=== PATIENT | male | born 1935 | race Caucasian/White ===

== ENCOUNTER 2020-09-12 08:04 | Outpatient (REF) | payer MEDICARE, OTHER, SELFPAY ==
[2020-09-12 10:03] LABS: MANUAL DIFF FLAG NO
[2020-09-12 10:06] LABS: Basophils Absolute Auto 0.1 X10*3/uL (0.0-0.2); Basophils Percent Auto 0.9 % (0-2); Eosinophils Absolute Auto 0.4 X10*3/uL (0.0-0.4); Eosinophils Percent Auto 6.7 % (0-4); Hematocrit 32.6 % (42-52); Imm Gran Abs Auto 0.02 X10*3/uL (0.00-0.03); Imm Gran Pct Auto 0.4 % (0.0-0.4); Lymphocytes Absolute Auto 1.2 X10*3/uL (1.2-4.9); Lymphocytes Percent Auto 21.3 % (20-40); Mean Corpuscular HGB Conc 33.7 g/dl (31.0-36.0); Mean Corpuscular Hemoglobin 35.1 pg (27.0-33.0); Mean Corpuscular Volume 104.2 fL (80-98); Monocytes Absolute Auto 0.6 X10*3/uL (0.1-1.2); Monocytes Percent Auto 11.5 % (2-11); Neutrophils Absolute Auto 3.3 X10*3/uL (2.0-8.3); Neutrophils Percent Auto 59.2 % (45-73); Platelet Count 207 X10*3/uL (160-400); Red Blood Count 3.13 X10*6/uL (4.60-5.80); Red Cell Distribution Width 14.6 % (11.0-16.0); White Blood Count 5.6 X10*3/uL (4.8-10.8)
[2020-09-12 10:39] LABS: Alanine Aminotransferase 13 U/L (0-40); Albumin Level 4.2 g/dL (3.5-5.0); Alkaline Phosphatase 45 U/L (39-117); Anion Gap 11 (12-20); Aspartate Amino Transferase 14 U/L (5-37); Bilirubin Total 0.7 mg/dL (0.0-1.0); Blood Urea Nitrogen 15 mg/dL (9-16); Carbon Dioxide 28 mmol/L (22-29); Chloride 105 mmol/L (96-108); Cholesterol 123 mg/dL; Estimated Glomerular Filt Rate > 60; Glucose Fasting 139 mg/dL (60-99); HDL Cholesterol 46 mg/dL; LDL Cholesterol Calculated 67 mg/dl; Potassium 4.7 mmol/l (3.3-5.1); Sodium 139 mmol/L (135-145); Total Protein 7.2 g/dL (6.5-8.0); Triglycerides 51 mg/dL
[2020-09-12 11:01] LABS: TSH reflex Free T4 0.82 mIU/mL (0.32-4.0)
[2020-09-12 11:14] LABS: Folate > 20.0 ng/mL (> or = 4.0); Vitamin B12 1549 pg/mL (200-900)
[2020-09-12 14:05] LABS: Glucose Urine UA NEG (NEG); Leukocyte Esterase Urine 3+ (NEG); Nitrite Urine POS (NEG); Specific Gravity - Urine >= 1.030 (1.005-1.025); Urine Blood TRACE (NEG); Urine Ketones NEG (NEG); Urine Protein NEG (NEG-TRACE)
[2020-09-12 14:06] LABS: Appearance Urine CLOUDY; Color Urine YELLOW
[2020-09-12 14:12] LABS: Creatinine Urine 180.45 mg/dL; Microalbum/Creatinine Ratio Ur 29.3 ug/mg cr
[2020-09-12 14:17] LABS: WBC Urine 50-75 /HPF (0-4)
[2020-09-12 14:18] LABS: Bacteria Urine 3+ /LPF; Squamous Epithelial Cell Urine 2+ /LPF
[2020-09-13 10:28] LABS: Erythropoietin (EPO) 20.1 mIU/mL (2.6-18.5)
== END 2020-09-12 08:05 | disposition home or self-care (01) ==
LOC: HO.10HDL 08:04
PROVIDERS: Visit Provider Internal Medicine
DX: E11.9 Type 2 diabetes mellitus without complications (principal); I10 Essential (primary) hypertension; E78.00 Pure hypercholesterolemia, unspecified; G62.9 Polyneuropathy, unspecified; K21.9 Gastro-esophageal reflux disease without esophagitis; E55.9 Vitamin D deficiency, unspecified; I48.3 Typical atrial flutter
CPT/HCPCS: 36415; 80053; 80061; 81001; 82043; 82306; 82607; 82668; 82746; 84443; 85025; 87086; 87088; 87186

== ENCOUNTER → 2020-09-29 13:04 | Outpatient (REF) | payer MEDICARE, OTHER, SELFPAY ==
--- NOTE | 2020-09-29 13:00 | CA_ITS ---
Transthoracic Echocardiogram Patient (Last, First, Middle): Contreras Chapman G Gender: Male Date of : 1935 Age: 85 Procedure Date: 09/29/2020 Procedure Type: Transthoracic Echocardiogram Location: OP Height: 177.8 cm Weight: 74.84 kg BSA: 1.92 m2 Heart Rate: bpm BP: 128 / 61 mmHg Mineralogy Professor: JEAN MARIE Referring MD: Mauricio Mace MD Symptoms: TYPPICAL ATRIAL FLUTTER I48.3 Study Quality: Good Conclusions: - The left ventricular systolic function is normal. The visually estimated ejection fraction is between 65-70%. - No obvious valvular pathology seen on this study. Findings Left Ventricle Normal left ventricular cavity size. There is moderately increased left ventricular wall thickness. The left ventricular systolic function is normal. The visually estimated ejection fraction is between 65-70%. There is no evidence of regional wall motion abnormalities. E/E prime ratio is between 8 and 15 consistent with indeterminate filling pressures. Evidence suggests grade I (mild) diastolic dysfunction. Right Ventricle Normal right ventricular cavity size and systolic function. Atria Mild biatrial enlargement. Aortic Valve There is a normal trileaflet aortic valve. There is mild calcification of the aortic valve. There is no aortic valve stenosis. There is trace (trivial) aortic valve regurgitation. Mitral Valve The mitral valve appears normal. There is trace mitral valve regurgitation. There is no mitral valve stenosis. Pulmonic Valve The pulmonic valve was not well visualized. Tricuspid Valve Normal tricuspid valve structure. There is trace tricuspid valve regurgitation. The pulmonary artery systolic pressure is normal. Great Vessels Top normal ascending aortic size at 3.7 cm. Venous The inferior vena cava was not well visualized. Pericardium/Pleural There is no evidence of pericardial effusion. Prior Study Comparison No significant change compared to prior study dated: 09/09/2019. Recommendations, Care & Conclusions No obvious valvular pathology seen on this study. Measurements 2D Linear Measurements IVSd: 1.37 0.6-0.9/0.6-1.0 cm LVIDd: 5.22 3.9-5.3/4.2-5.9 cm LVIDd Index: 2.72 2.4-3.2/2.2-3.1 cm/m2 LVIDs: 4.00 2.0-3.6 cm LVPWd: 1.15 0.7-1.1 cm Ao Root: 3.40 2.1-3.5 cm LA Diam: 3.90 2.7-3.8/3.0-4.0 cm LAIDs Index: 2.03 1.5-2.3 cm/m2 LV Mass: 334.31 67-162/88-224 g LV Mass Index: 174.12 43-95/49-115 g/m2 LVOT Diam: 2.30 3.0+(-)1.3 cm 2D Systolic Function EF 4C: 77.50 >55% EF 2C: 66.60 >55% EF BiP: 72.40 >55% Mitral Valve MV Pk E: 0.77 MV PK A: 0.90 MV Decel Time: 204.00 E/A: 0.80 E'Lateral: 8.16 E'Medial: 7.40 E/E' Med: 10.40 E/E' Lat: 9.40 PHT: 60.00 MVA PHT: 3.67 Decel Bowie: 3.75 Aortic Valve AoV Pk Dejon: 1.29 AoV Pk Grad: 7.00 LVOT LVOT Pk Dejon: 0.78 LVOT Mn Dejon: 0.55 LVOT VTI: 0.20 LVOT Pk Grad: 2.00 LVOT Mn Grad: 1.00 LVOT Diam: 2.30 LVOT Area: 4.15 Diastolic Function MV Pk E: 0.77 MV Pk A: 0.90 E/A: 0.80 E'Medial: 7.40 E/E' Med: 10.40 E' Laterial: 8.16 E/E' Lat: 9.40 Tricuspid Valve TR Pk Dejon: 2.54 TR Pk Grad: 26.00 RA Press: 3.00 RVSP: 29.00 Great Vessels Aorta Ao Root-2D: 3.40 2.0-3.7 cm Ao Asc: 3.70 2.1-3.4 cm Updated in Other Vendor System with Status of Final Mauricio Mace MD electronically signed on 10/01/2020 12:40:10 PM with status of Final
--- NOTE | 2020-09-29 14:00 | ECG_ITS ---
Hook-up date: 2020-09-29 14:15:00 Duration: 25:27:00 Test Indications: TYPICAL ATRIAL FLUTTER Medications: 79536 QRS complexes 263 Ventricular ectopics which represent <1 % of total QRS comp. 1280 Supraventricular ectopics which represent 1 % of total QRS comp. * Paced QRS complexs which represent % of total QRS comp. VENTRICULAR ECTOPY 257 Isolated 6 Bigeminal Cycles 3 Couplets 0 Runs 0 Beats in Runs * Beats LONGEST at * BPM at :: -- * Beats FASTEST at * BPM at :: -- SUPRAVENTRICULAR ECTOPY 1189 Isolated 18 Couplets 9 Runs 55 Beats in Runs 19 Beats LONGEST at 111 BPM at 17:29:35 2020-09-29 7 Beats FASTEST at 123 BPM at 06:17:45 2020-09-30 HEART RATES 63 MIN at 03:44:16 2020-09-30 72 AVG 106 MAX at 11:30:17 2020-09-30 LONGEST RR 1.5680 secs at 05:19:55 2020-09-30 S-T LEVELS Channel 1 - 128 mm at 14:15:00 2020-09-29 - 128 mm at 14:15:00 2020-09-29 Channel 2 - 128 mm at 14:15:00 2020-09-29 - 128 mm at 14:15:00 2020-09-29 Channel 3 - 128 mm at 03:33:41 -- - 128 mm at 03:33:41 Basic rhythm Normal sinus rhythm No long pause or profound bradycardia No sustained Atrial flutter Frequent Premature atrial complexes Short bursts of SVE. s/o PAT, longest lasting 19 beats at 111 bpm Patient did not report any symptoms in the diary Referred By: Mauricio Mace Overread By: DONALD MCCLAIN MD
== END ==
LOC: HO.CARD 13:04
PROVIDERS: PCP Internal Medicine; Visit Provider Internal Medicine
DX: I48.3 Typical atrial flutter (principal)
CPT/HCPCS: 93225; 93226; 93306

== ENCOUNTER → 2020-10-06 12:19 | Outpatient (BNVA) | payer MEDICARE, OTHER, SELFPAY | PROVIDERS: PCP Internal Medicine; Visit Provider Internal Medicine | DX: I48.92 Unspecified atrial flutter (principal); I10 Essential (primary) hypertension; K92.2 Gastrointestinal hemorrhage, unspecified | CPT/HCPCS: 93005; 99212 ==

== ENCOUNTER 2020-10-12 13:23 | Outpatient (REF) | payer MEDICARE, OTHER, SELFPAY ==
--- NOTE | ~2020-10-12 | XR_ITS ---
EXAMINATION: XR CHEST CLINICAL INFORMATION: Cough COMPARISON: August 12, 2018 TECHNIQUE: 2 views of the chest were obtained. FINDINGS: No significant abnormality is noted involving the heart, lungs, mediastinum, bony thorax or soft tissues. Multilevel degenerative spurring in the thoracic spine is seen. XR/XR chest 2V IMPRESSION: No acute disease.
[2020-10-12 14:27] LABS: Glucose Urine UA NEG (NEG); Leukocyte Esterase Urine NEG (NEG); Nitrite Urine NEG (NEG); Specific Gravity - Urine 1.015 (1.005-1.025); Urine Blood NEG (NEG); Urine Ketones NEG (NEG); Urine Protein NEG (NEG-TRACE)
[2020-10-12 14:29] LABS: Appearance Urine CLEAR; Color Urine YELLOW
== END 2020-10-12 13:24 | disposition home or self-care (01) ==
LOC: HO.LAB 13:23
PROVIDERS: PCP Internal Medicine; Visit Provider Internal Medicine
DX: R05 Cough (principal); N12 Tubulo-interstitial nephritis, not specified as acute or chronic
CPT/HCPCS: 71046; 81003

== ENCOUNTER 2020-11-07 08:51 | Emergency (ER) | payer OTHER, MEDICARE, SELFPAY ==
[2020-11-07 08:52] VITALS: BP 200/79; PULSE 75; RESP 18; TEMP 36.5; O2SAT 99; BMI 25.1
--- NOTE | 2020-11-07 09:19 | ED.WOUNDLAC ---
HPI - Wound/Laceration General Chief Complaint: Wound/Laceration Stated Complaint: left foot toe infection Time Seen by Provider: 11/07/20 08:56 Source: patient Mode of arrival: ambulatory Limitations: no limitations History of Present Illness HPI narrative: 85-year-old male presented with bite force to infection, patient was seen and evaluated by his access database developer at the [place], patient was started on doxycycline antibiotic, because of small opening in the wound at the base of left 4th toe access database developer was concern of bleeding. And sent the patient to the emergency department for further evaluation. Patient found to be hypertensive in the emergency department but patient relates the high blood pressure to his presence in the emergency department when he get slightly anxious. And wound on his left foot is dry and clean and intact. Related Data Home Medications Medication Instructions Recorded Confirmed simvastatin 20 mg tablet 20 mg PO BEDTIME 09/20/20 10/17/20 sitagliptin 100 mg tablet 100 mg PO DAILY 09/20/20 10/17/20 lorazepam 1 mg tablet 1 mg PO TID 10/17/20 10/17/20 Previous Rx's Medication Instructions Recorded gabapentin 400 mg capsule 400 mg PO BID #180 cap 08/23/20 valsartan 160 mg tablet 160 mg PO DAILY #90 tab 09/20/20 metoprolol succinate 50 mg 50 mg PO DAILY #90 tab 09/21/20 tablet,extended release 24 hr zolpidem 10 mg tablet 10 mg PO BEDTIME PRN 90 Days #90 09/26/20 tab albuterol sulfate 90 mcg/actuation 2 puff INHALATION QID PRN 30 Days 10/17/20 aerosol inhaler #8.5 g amlodipine 10 mg tablet 10 mg PO DAILY #90 tab 10/17/20 azithromycin 250 mg tablet See Rx Instructions PO .COMPLEX #6 10/17/20 tab omeprazole 20 mg capsule,delayed 20 mg PO BID #180 cap 10/28/20 release doxycycline monohydrate 100 mg 100 mg PO BID 7 Days #14 cap 11/03/20 capsule Allergies Allergy/AdvReac Type Severity Reaction Status Date / Time Penicillins Allergy Intermediate RASH/HIVES Verified 10/17/20 10:30 Sulfa (Sulfonamide Allergy Intermediate RASH/HIVES, Verified 10/17/20 10:30 Antibiotics) hives Review of Systems Review of Systems: All other systems are reviewed and are negative Constitutional: Reports as per HPI and Reports no additional constitutional complaints Eyes: Reports as per HPI and Reports no additional eye complaints Reports system reviewed and no additional complaints, except as documented Cardiovascular: Reports as per HPI and Reports no additional cardiovascular complaints Respiratory: Reports as per HPI and Reports no additional respiratory complaints Gastrointestinal: Reports as per HPI and Reports no additional gastrointestinal complaints Genitourinary: Reports no additional female genitourinary complaints Musculoskeletal: Reports no additional musculoskeletal complaints Skin/Breast: Reports system reviewed and no additional complaints, except as docu Psychiatric: Reports no additional psychiatric complaints Endocrine: Reports no additional endocrine complaints Hematologic/Lymphatic: Reports no additional hematologic/lymphatic complaints Allergic/Immunologic: Reports no additional allergic/immunologic complaints Reports system reviewed and no additional complaints, except as documented and Reports Abnormal speech present [facility] Past Medical History Medical History Anemia Arthralgia Atrial flutter Benign essential hypertension Diabetes mellitus Essential hypertension Gastrointestinal hemorrhage GERD without esophagitis Insomnia Neuropathy Paroxysmal atrial flutter Psoriasis Pure hypercholesterolemia Pyelonephritis Vitamin D deficiency Surgical History History of inguinal hernia repair History of left hip replacement S/P ablation of atrial flutter Family History Family History Father Pneumonia Mother Myocardial infarction Son No problems noted. Daughter No problems noted. Social History Social History Alcohol intake: never Smoking Status: Never smoker Use of substances other than those prescribed or required for medical reasons: No Advance Directives: Yes Advance Directives on File: Yes Advance Directives Date on File: 08/26/00 Physical Exam Vital Signs: Vital Signs: Last Vital Signs Temp 97.7 F 11/07/20 08:52 Pulse 66 11/07/20 09:54 Resp 16 11/07/20 09:54 BP 146/85 H 11/07/20 09:54 Pulse Ox 95 11/07/20 09:54 Body Mass Index 25.1 Vital signs have been reviewed as appeared to be correct. Blood pressure in the high range will repeat. Heart rate normal. Respiration rate normal. Temperature normal. Oxygen saturation normal. Appearance: Alert. Oriented X3. No acute distress. Head: Normal external exam. Normocephalic. Atraumatic. No Quinones signs noted. No raccoon eyes noted Eyes: PERRLA. EOMI. Conjunctiva and sclera normal. Eyelids normal. ENT: TM's Normal. Pharynx normal. Uvula midline. Moist mucous membranes. No trismus noted. No drooling noted. No muffled voice noted. Neck: Normal inspection. Neck supple. FROM. No adenopathy. Thyroid Normal. No meningeal signs. No neck mass noted. CVS: Normal heart rate and rhythm. Heart sound normal. No murmurs noted. Pulses normal throughout. Respiratory: No respiratory distress. Painless inspiration. Breath sounds normal. No wheezes/rales/rhonchi noted. Chest nontender. No accessory muscle usage noted or decreased air movement noted. Abdomen: Soft and nontender. Bowel sounds normal in all 4 quadrants. No distention noted. No organomegaly noted. No visible injury noted. Back: No CVA tenderness. Full range of motion noted. Skin: Skin warm and dry. Normal skin color. Normal skin turgor. No rashes/lesions/lacerations noted. Extremities: Left 4th toe appeared dry, clean, intact, there is a small open wound at the base of left fourth toe palmar side, no active bleeding, no obvious sign of infection. Neuro: Oriented X 3. No motor deficit. No sensory deficit. Reflexes normal. Course Course Course Narrative: Left 4th infection. Continue with doxycycline antibiotic. And follow-up with wound clinic. Blood pressure under better venue put patient was instructed to follow up with his PCP and closely monitor his blood pressure. Blood pressure improved while in the emergency department. Discharge Plan Discharge Clinical Impression: Essential hypertension, Infection of toe Patient Disposition: Home, Self-Care Instructions: Hypertension (ED) Prescriptions: No Action gabapentin 400 mg capsule 400 mg PO BID Qty: 180 RF: 1 valsartan 160 mg tablet 160 mg PO DAILY Qty: 90 RF: 3 metoprolol succinate 50 mg tablet extended release 24 hr 50 mg PO DAILY Qty: 90 RF: 3 amlodipine 10 mg tablet 10 mg PO DAILY Qty: 90 RF: 1 omeprazole 20 mg capsule,delayed release(DR/EC) 20 mg PO BID Qty: 180 RF: 1 doxycycline monohydrate 100 mg capsule 100 mg PO BID 7 Days Qty: 14 RF: 0 lorazepam 1 mg tablet 1 mg PO TID RF: 0 azithromycin 250 mg tablet See Rx Instructions PO .COMPLEX Qty: 6 RF: 0 albuterol sulfate 90 mcg/actuation HFA aerosol inhaler 2 puff inhalation QID PRN (Reason: shortness of breath or wheezing) 30 Days Qty: 8.5 RF: 1 simvastatin 20 mg tablet 20 mg PO BEDTIME RF: 0 Januvia 100 mg tablet 100 mg PO DAILY RF: 0 zolpidem 10 mg tablet 10 mg PO BEDTIME PRN (Reason: insomnia) 90 Days Qty: 90 RF: 1 Referrals: Srikanth Wilder MD [Physician] - 2 days
[2020-11-07 09:54] VITALS: BP 146/85; PULSE 66; RESP 16; O2SAT 95
== END 2020-11-07 10:42 | disposition home or self-care (01) ==
PROVIDERS: Emergency Provider Emergency Medicine; PCP Internal Medicine
DX: L08.9 Local infection of the skin and subcutaneous tissue, unspecified (principal); I10 Essential (primary) hypertension; I48.92 Unspecified atrial flutter
CPT/HCPCS: 99282; 99284

== ENCOUNTER 2020-11-10 13:01 | Outpatient (RCR) | payer OTHER, MEDICARE, SELFPAY | END 2020-11-22 13:54 | disposition home or self-care (01) | LOC: HO.WCC 13:01 | PROVIDERS: Visit Provider Surgery | DX: E11.628 Type 2 diabetes mellitus with other skin complications (principal); S90.425A Blister (nonthermal), left lesser toe(s), initial encounter; Z87.891 Personal history of nicotine dependence | CPT/HCPCS: 17250; 99212; 99213 ==

== ENCOUNTER 2020-12-04 13:00 | Emergency (ER) | payer OTHER, MEDICARE, SELFPAY ==
--- NOTE | ~2020-12-04 | US_ITS ---
EXAMINATION: US VENOUS ULTRASOUND WITH DOPPLER LOWER EXTREMITY, LEFT CLINICAL INFORMATION: Pain, swelling COMPARISON: None TECHNIQUE: Ultrasound of the deep veins is performed from the hip to the calf with compression sonography and color and pulse Doppler assessment. Spectral analysis with color-flow imaging is performed. FINDINGS: There is normal venous compression and respiratory variation and augmented flow. The visualized common femoral vein, superficial femoral vein, profunda femoral vein, popliteal vein, and the trifurcation region shows no evidence of deep venous thrombosis. There is no significant popliteal fossa cyst. There is subcutaneous soft tissue edema in the calf. If the patient's symptoms persist, followup ultrasound in 5 days 7 days might be of value to exclude proximal propagation from a non-visualized calf vein. US/US venous duplex LE IMPRESSION: No DVT demonstrated in the left lower extremity.
--- NOTE | ~2020-12-04 | XR_ITS ---
EXAMINATION: XR FOOT, LEFT CLINICAL INFORMATION: Status post swelling. Pain. COMPARISON: 12/17/2012 TECHNIQUE: AP, lateral, and oblique views of the left foot. FINDINGS: The fifth metatarsal fracture has healed with stable medial displacement of the distal bone. There is mild irregularity to the base of the fourth and fifth proximal phalanges which may reflect prior trauma. No acute fracture or dislocation is seen. Moderate first MTP joint space narrowing is seen. Soft tissue swelling is seen proximally and vascular calcification is identified. XR/XR foot LT 2V IMPRESSION: Soft tissue swelling and vascular calcifications. Evidence of prior trauma to the left foot with a prior healed fifth metatarsal fracture. No acute osseous abnormality is seen.
[2020-12-04 13:03] VITALS: BP 143/63; PULSE 88; RESP 18; TEMP 37.1; O2SAT 96; BMI 25.5
--- NOTE | 2020-12-04 15:11 | PC.NURSE ---
ambulatory slow/steady gait, +swelling left foot/ankle no redness noted, +pp
[2020-12-04 16:52] VITALS: BP 138/68; PULSE 72; RESP 14; TEMP 36.3; O2SAT 97
--- NOTE | 2020-12-04 17:48 | ED.LOWEXIN ---
HPI - Extremity Injury (Lower) General Chief Complaint: Extremity Injury, Lower Stated Complaint: foot infection Time Seen by Provider: 12/04/20 15:33 Source: patient Mode of arrival: ambulatory Limitations: no limitations History of Present Illness HPI Narrative: States irritated area between the toe and also pain on the bottom of the left foot. Onset (ago): day(s) Severity: mild Relieving factors: nothing Exacerbating factors: nothing Other symptoms: none Related Data Home Medications Medication Instructions Recorded Confirmed simvastatin 20 mg tablet 20 mg PO BEDTIME 09/20/20 10/17/20 sitagliptin 100 mg tablet 100 mg PO DAILY 09/20/20 10/17/20 lorazepam 1 mg tablet 1 mg PO TID 10/17/20 10/17/20 Previous Rx's Medication Instructions Recorded valsartan 160 mg tablet 160 mg PO DAILY #90 tab 09/20/20 metoprolol succinate 50 mg 50 mg PO DAILY #90 tab 09/21/20 tablet,extended release 24 hr zolpidem 10 mg tablet 10 mg PO BEDTIME PRN 90 Days #90 09/26/20 tab albuterol sulfate 90 mcg/actuation 2 puff INHALATION QID PRN 30 Days 10/17/20 aerosol inhaler #8.5 g amlodipine 10 mg tablet 10 mg PO DAILY #90 tab 10/17/20 azithromycin 250 mg tablet See Rx Instructions PO .COMPLEX #6 10/17/20 tab omeprazole 20 mg capsule,delayed 20 mg PO BID #180 cap 10/28/20 release doxycycline monohydrate 100 mg 100 mg PO BID 7 Days #14 cap 11/03/20 capsule gabapentin 400 mg capsule 400 mg PO BID #180 cap 12/01/20 oxycodone 2.5 mg PO Q8H PRN 3 Days #10 tab 12/04/20 Allergies Allergy/AdvReac Type Severity Reaction Status Date / Time Penicillins Allergy Intermediate RASH/HIVES Verified 10/17/20 10:30 Sulfa (Sulfonamide Allergy Intermediate RASH/HIVES, Verified 10/17/20 10:30 Antibiotics) hives Review of Systems Review of Systems: Constitutional: No Weight loss, No Fever, No Chills, No Night Sweats, No Fatigue, No Malaise ENT/Mouth: No Hearing loss, No Ear Pain, No Nasal Congestion, No Sinus Pain, No Hoarseness, No sore throat, No Rhinorrhea, No Swallowing Difficulty Eyes: No Eye Pain, No Swelling, No Redness, No Foreign Body, No Discharge, No Vision Changes Cardiovascular: No Chest Pain, No SOB, No Dyspnea on Exertion, No Orthopnea, No Edema, No Palpitations Respiratory: No Cough, No Sputum, No Wheezing, No Smoke Exposure, No Dyspnea Gastrointestinal: No Nausea, No Vomiting, No Diarrhea, No Constipation, No abdominal Pain, No Hematochezia, No Melena Genitourinary: no irregular bleeding, No Dysuria, No Urinary Frequency, No Hematuria, No Urinary Incontinence, No Urgency, No Flank Pain, No Urinary Flow Changes, No Hesitancy Musculoskeletal: No joint pain, No Myalgias, No Joint Swelling Skin: No Skin Lesions, No rash, as noted per HPI Neuro: No Weakness, No Numbness, No Paresthesias, No Loss of Consciousness, No Dizziness, No Headache Psych: No Social Issues Heme/Lymph: No Bruising, No Bleeding,No Lymphadenopathy Endocrine: No Polyuria, No Polydipsia, No Temperature Intolerance Yes all other systems are reviewed and are negative [facility] Past Medical History Medical History Anemia Arthralgia Atrial flutter Benign essential hypertension Diabetes mellitus Essential hypertension Gastrointestinal hemorrhage GERD without esophagitis Insomnia Neuropathy Paroxysmal atrial flutter Psoriasis Pure hypercholesterolemia Pyelonephritis Vitamin D deficiency Surgical History History of inguinal hernia repair History of left hip replacement S/P ablation of atrial flutter Family History Family History Father Pneumonia Mother Myocardial infarction Son No problems noted. Daughter No problems noted. Social History Social History Alcohol intake: never Smoking Status: Former smoker Use of substances other than those prescribed or required for medical reasons: No Advance Directives: Yes Advance Directives on File: Yes Advance Directives Date on File: 08/26/00 Physical Exam Vital Signs: Vital Signs: Last Vital Signs Temp 97.4 F 12/04/20 16:52 Pulse 72 12/04/20 16:52 Resp 14 12/04/20 16:52 BP 138/68 12/04/20 16:52 Pulse Ox 97 04/11/21 16:52 Body Mass Index 25.5 Reviewed Const: General: cooperative and healthy appearing; No acute distress or intoxicated appearing Nutritional Appearance: average body habitus Orientation/consciousness: patient oriented x3 HENMT: Head: Yes normal to inspection Ears: hearing grossly normal bilaterally Eyes: General: appearance normal, both eyes and all related structures Visual Jones: normal visual jones by confrontation Neck: Neck: Yes normal visual inspection Chest: Chest palpation & inspection: normal inspection of the chest Resp: Effort & Inspection: normal respiratory effort Auscultation: clear to auscultation bilaterally Cardio: Jugular venous distension: no JVD Rhythm: regular rhythm Heart sounds: S1 normal heart sound present and S2 normal heart sound present GI: Inspection: Yes normal to inspection Palpation (GI): Soft to palpation Percussion: Yes normal to percussion Auscultation: normal bowel sounds : General: Yes no CVA tenderness Back/Spine/Pelvis: Back: no CVA tenderness Skin: General skin exam: no rashes or lesions noted Neuro: General: patient oriented x3 Extrem: Other: Slightly tender palpation over the mid plantar foot over the plantar fascia consistent with plantar fasciitis otherwise no rash. Between the 3rd and 4th toes slightly macerated area with slight whitish macerated skin but no erythema or discharge. General: Yes normal to inspection Discharge Plan Discharge Clinical Impression: Athlete's foot, Plantar fasciitis Patient Disposition: Home, Self-Care Instructions: Athlete's Foot (ED), Plantar Fasciitis (ED) Additional Instructions: Your x-ray did not show any acute findings Ultrasound of the foot was okay Slightly macerated areas in between the toes are consistent with athlete's foot There is no need for oral antibiotics There is no signs of over infection Keep site clean and dry Cotton balls in between the toes with also help keep the areas dry You can apply topical Lotrimin cream or spray Supportive care for the plantar fasciitis with Martin wrap and appropriate footwear For mild to moderate pain take Tylenol For more severe pain he can take half a tablet of oxycodone 5 mg but do not plan on doing activities or driving while taking this. Return if any concerns or worsening symptoms otherwise follow-up instruction Thank you Prescriptions: New oxycodone 5 mg tablet 2.5 mg PO Q8H PRN (Reason: pain) 3 Days Qty: 10 RF: 0 No Action valsartan 160 mg tablet 160 mg PO DAILY Qty: 90 RF: 3 metoprolol succinate 50 mg tablet extended release 24 hr 50 mg PO DAILY Qty: 90 RF: 3 amlodipine 10 mg tablet 10 mg PO DAILY Qty: 90 RF: 1 omeprazole 20 mg capsule,delayed release(DR/EC) 20 mg PO BID Qty: 180 RF: 1 doxycycline monohydrate 100 mg capsule 100 mg PO BID 7 Days Qty: 14 RF: 0 gabapentin 400 mg capsule 400 mg PO BID Qty: 180 RF: 1 lorazepam 1 mg tablet 1 mg PO TID RF: 0 azithromycin 250 mg tablet See Rx Instructions PO .COMPLEX Qty: 6 RF: 0 albuterol sulfate 90 mcg/actuation HFA aerosol inhaler 2 puff inhalation QID PRN (Reason: shortness of breath or wheezing) 30 Days Qty: 8.5 RF: 1 simvastatin 20 mg tablet 20 mg PO BEDTIME RF: 0 Januvia 100 mg tablet 100 mg PO DAILY RF: 0 zolpidem 10 mg tablet 10 mg PO BEDTIME PRN (Reason: insomnia) 90 Days Qty: 90 RF: 1 Referrals: Leonard Ames MD [Primary Care Provider] - 1 week Discharge Date/Time: 12/04/20 18:29
== END 2020-12-04 18:29 | disposition home or self-care (01) ==
PROVIDERS: Emergency Provider Emergency Medicine Emergency Medical Services; PCP Internal Medicine
DX: B35.3 Tinea pedis (principal); M72.2 Plantar fascial fibromatosis; M79.672 Pain in left foot; I10 Essential (primary) hypertension; E78.00 Pure hypercholesterolemia, unspecified; I48.0 Paroxysmal atrial fibrillation; Z79.02 Long term (current) use of antithrombotics/antiplatelets; Z79.899 Other long term (current) drug therapy
CPT/HCPCS: 73620; 93971; 99284

== ENCOUNTER 2021-01-16 07:42 | Outpatient (REF) | payer MEDICARE, OTHER, SELFPAY ==
[2021-01-16 10:21] LABS: MANUAL DIFF FLAG NO
[2021-01-16 10:50] LABS: Alanine Aminotransferase 11 U/L (0-40); Albumin Level 4.2 g/dL (3.5-5.0); Alkaline Phosphatase 47 U/L (39-117); Anion Gap 13 (12-20); Aspartate Amino Transferase 14 U/L (5-37); Blood Urea Nitrogen 11 mg/dL (9-16); Calcium 9.3 mg/dL (8.4-10.2); Carbon Dioxide 24 mmol/L (22-29); Chloride 107 mmol/L (96-108); Cholesterol 120 mg/dL; Estimated Glomerular Filt Rate > 60; Glucose Fasting 139 mg/dL (60-99); HDL Cholesterol 49 mg/dL; LDL Cholesterol Calculated 63 mg/dl; Potassium 4.6 mmol/L (3.3-5.1); Sodium 139 mmol/L (135-145); Total Protein 7.1 g/dL (6.5-8.0); Triglycerides 44 mg/dL
[2021-01-16 10:56] LABS: Basophils Percent Auto 0.5 % (0-2); Eosinophils Absolute Auto 0.1 X10*3/uL (0.0-0.4); Eosinophils Percent Auto 1.8 % (0-4); Hematocrit 31.5 % (42-52); Hemoglobin 10.5 g/dl (14.0-18.0); Imm Gran Abs Auto 0.02 X10*3/uL (0.00-0.03); Imm Gran Pct Auto 0.5 % (0.0-0.4); Lymphocytes Percent Auto 25.3 % (20-40); Mean Corpuscular HGB Conc 33.3 g/dl (31.0-36.0); Mean Corpuscular Hemoglobin 35.6 pg (27.0-33.0); Mean Corpuscular Volume 106.8 fL (80-98); Mean Platelet Volume 12.3 fL (9.4-12.4); Monocytes Absolute Auto 0.5 X10*3/uL (0.1-1.2); Monocytes Percent Auto 12.1 % (2-11); Neutrophils Absolute Auto 2.3 X10*3/uL (2.0-8.3); Neutrophils Percent Auto 59.8 % (45-73); Platelet Count 194 X10*3/uL (160-400); Red Blood Count 2.95 X10*6/uL (4.60-5.80); Red Cell Distribution Width 14.6 % (11.0-16.0); White Blood Count 3.8 X10*3/uL (4.8-10.8)
[2021-01-16 11:14] LABS: TSH reflex Free T4 0.86 uIU/mL (0.32-4.0); Vitamin D 25-OH Total 51.6 ng/mL (>30)
[2021-01-16 11:23] LABS: Folate > 20.0 ng/mL (> or = 4.0); Vitamin B12 1257 pg/mL (200-900)
[2021-01-16 14:00] LABS: Glucose Urine UA NEG (NEG); Leukocyte Esterase Urine NEG (NEG); Nitrite Urine NEG (NEG); Urine Blood NEG (NEG); Urine Ketones NEG (NEG); Urine Protein NEG (NEG-TRACE)
[2021-01-16 14:05] LABS: Appearance Urine CLEAR; Color Urine YELLOW
[2021-01-16 14:12] LABS: Creatinine Urine 111.83 mg/dL
== END 2021-01-16 07:43 | disposition home or self-care (01) ==
LOC: HO.10HDL 07:42
PROVIDERS: Visit Provider Internal Medicine
DX: E11.621 Type 2 diabetes mellitus with foot ulcer (principal); L97.528 Non-pressure chronic ulcer of other part of left foot with other specified severity; E78.00 Pure hypercholesterolemia, unspecified; I10 Essential (primary) hypertension; I48.3 Typical atrial flutter; D64.9 Anemia, unspecified; N12 Tubulo-interstitial nephritis, not specified as acute or chronic; K21.9 Gastro-esophageal reflux disease without esophagitis; G62.9 Polyneuropathy, unspecified; E55.9 Vitamin D deficiency, unspecified
CPT/HCPCS: 36415; 80053; 80061; 81003; 82043; 82306; 82607; 82746; 84443; 85025

== ENCOUNTER 2021-10-11 07:33 | Outpatient (REF) | payer MEDICARE, OTHER, SELFPAY ==
[2021-10-11 10:29] LABS: MANUAL DIFF FLAG NO
[2021-10-11 10:33] LABS: Basophils Percent Auto 0.8 % (0-2); Eosinophils Absolute Auto 0.1 X10*3/uL (0.0-0.4); Eosinophils Percent Auto 1.6 % (0-4); Hematocrit 32.3 % (42.0-52.0); Hemoglobin 10.9 g/dl (14.0-18.0); Imm Gran Abs Auto 0.02 X10*3/uL (0.00-0.03); Imm Gran Pct Auto 0.4 % (0.0-0.4); Lymphocytes Absolute Auto 1.2 X10*3/uL (1.2-4.9); Lymphocytes Percent Auto 23.2 % (20-40); Mean Corpuscular HGB Conc 33.7 g/dl (31.0-36.0); Mean Corpuscular Hemoglobin 36.7 pg (27.0-33.0); Mean Corpuscular Volume 108.8 fL (80.0-98.0); Mean Platelet Volume 11.6 fL (9.4-12.4); Monocytes Absolute Auto 0.5 X10*3/uL (0.1-1.2); Monocytes Percent Auto 10.6 % (2-11); Neutrophils Absolute Auto 3.2 x10*3/uL (2.0-8.3); Neutrophils Percent Auto 63.4 % (45-73); Platelet Count 236 X10*3/uL (160-400); Red Blood Count 2.97 X10*6/uL (4.60-5.80); Red Cell Distribution Width 13.2 % (11.0-16.0)
[2021-10-11 10:46] LABS: Estimated Average Glucose 128 mg/dL; Hemoglobin A1c % 6.1 %
[2021-10-11 10:49] LABS: Alanine Aminotransferase 8 U/L (0-40); Albumin Level 4.2 g/dL (3.5-5.0); Alkaline Phosphatase 44 U/L (39-117); Anion Gap 10 (12-20); Aspartate Amino Transferase 12 U/L (5-37); Bilirubin Total 0.7 mg/dL (0.0-1.0); Blood Urea Nitrogen 12 mg/dL (9-16); Calcium 9.3 mg/dL (8.4-10.2); Carbon Dioxide 28 mmol/L (22-29); Chloride 104 mmol/L (96-108); Cholesterol 110 mg/dL; Estimated Glomerular Filt Rate > 60; Glucose Fasting 142 mg/dL (60-99); HDL Cholesterol 41 mg/dL; LDL Cholesterol Calculated 58 mg/dl; Potassium 4.3 mmol/L (3.3-5.1); Sodium 138 mmol/L (135-145); Total Protein 7.1 g/dL (6.5-8.0); Triglycerides 56 mg/dL
[2021-10-11 11:13] LABS: TSH reflex Free T4 0.89 uIU/mL (0.32-4.0); Vitamin D 25-OH Total 57.8 ng/mL (>30)
[2021-10-11 14:38] LABS: Appearance Urine CLOUDY; Color Urine YELLOW; Glucose Urine UA NEG (NEG); Leukocyte Esterase Urine 3+ (NEG); Nitrite Urine NEG (NEG); Specific Gravity - Urine 1.025 (1.005-1.025); UACC Culture Trigger YES; Urine Blood TRACE (NEG); Urine Ketones 5 MG/DL (NEG); Urine Protein TRACE MG/DL (NEG-TRACE)
[2021-10-11 14:49] LABS: Bacteria Urine 3+ /LPF; Squamous Epithelial Cell Urine 2+ /LPF
[2021-10-11 15:55] LABS: Creatinine Urine 163.29 mg/dL; Microalbum/Creatinine Ratio Ur 34.2 ug/mg cr
== END 2021-10-11 07:34 | disposition home or self-care (01) ==
LOC: HO.10HDL 07:33
PROVIDERS: Visit Provider Internal Medicine
DX: E78.00 Pure hypercholesterolemia, unspecified (principal); E11.9 Type 2 diabetes mellitus without complications; E55.9 Vitamin D deficiency, unspecified; I10 Essential (primary) hypertension
CPT/HCPCS: 36415; 80053; 80061; 81001; 81003; 82043; 82306; 83036; 84443; 85025; 87086; 87088; 87186

== ENCOUNTER → 2021-10-24 11:04 | Outpatient (REF) | payer MEDICARE, OTHER, SELFPAY ==
--- NOTE | 2021-10-24 11:07 | HM_ITS ---
Conclusion: 1. Patient was monitored for total period of 3 days 2. Baseline was normal sinus rhythm with average heart of 73 beats per minute 3. Frequent 3 beat salvos of supraventricular ectopy is noted 4. Total of 52,120 PACs accounting for 16.64% of total burden account for frequent PACs 5. No pauses or bradycardia noted 6. No patient reported events MTDD
== END ==
LOC: HO.CARD 11:04
PROVIDERS: Visit Provider Internal Medicine
DX: I48.92 Unspecified atrial flutter (principal)
CPT/HCPCS: 93242

== ENCOUNTER → 2021-11-14 11:02 | Outpatient (BNVA) | payer MEDICARE, OTHER, SELFPAY | PROVIDERS: PCP Internal Medicine; Referring Provider Internal Medicine; Visit Provider Internal Medicine | DX: I48.92 Unspecified atrial flutter (principal); I49.1 Atrial premature depolarization; I10 Essential (primary) hypertension; K92.2 Gastrointestinal hemorrhage, unspecified | CPT/HCPCS: 93005; 99212 ==

== ENCOUNTER 2021-11-16 12:08 | Outpatient (REF) | payer MEDICARE, OTHER, SELFPAY ==
--- NOTE | ~2021-11-16 | US_ITS ---
EXAMINATION: US RETROPERITONEAL LIMITED (RENAL ONLY) CLINICAL INFORMATION: Bacteriuria. COMPARISON: CT abdomen and pelvis with contrast 07/29/2018. TECHNIQUE: Real-time imaging of the kidneys. FINDINGS: RIGHT KIDNEY: 10.9 x 5.5 x 5.5 cm (SAG x AP x TRV). The kidney is normal in size, contour, and echogenicity. Renal cortical thickness is normal. No calculi or focal parenchymal lesions. No hydronephrosis. There is minimal free fluid adjacent to the lower pole. LEFT KIDNEY: 11.1 x 4.6 x 5.3 cm (SAG x AP x TRV). The kidney is normal in size, contour, and echogenicity. Renal cortical thickness is normal. No calculi or focal parenchymal lesions. No hydronephrosis. US/US renal BI IMPRESSION: Minimal free fluid inferior to lower pole. No echogenic renal calculi or hydronephrosis.
== END 2021-11-16 12:09 | disposition home or self-care (01) ==
LOC: HO.US 12:08
PROVIDERS: PCP Internal Medicine; Visit Provider Internal Medicine
DX: R10.9 Unspecified abdominal pain (principal); R82.71 Bacteriuria; R82.81 Pyuria
CPT/HCPCS: 76775

== ENCOUNTER → 2021-12-07 13:53 | Outpatient (REF) | payer MEDICARE, OTHER, SELFPAY | LOC: HO.SL 13:53 | PROVIDERS: PCP Internal Medicine; Visit Provider Internal Medicine | DX: Z13.89 Encounter for screening for other disorder (principal) ==

== ENCOUNTER 2022-02-12 07:46 | Outpatient (REF) | payer MEDICARE, OTHER, SELFPAY ==
[2022-02-12 10:18] LABS: MANUAL DIFF FLAG NO
[2022-02-12 10:39] LABS: Basophils Absolute Auto 0.1 X10*3/uL (0.0-0.2); Eosinophils Percent Auto 0.4 % (0-4); Hematocrit 30.9 % (42.0-52.0); Hemoglobin 10.6 g/dl (14.0-18.0); Imm Gran Abs Auto 0.02 X10*3/uL (0.00-0.03); Imm Gran Pct Auto 0.4 % (0.0-0.4); Lymphocytes Percent Auto 19.4 % (20-40); Mean Corpuscular HGB Conc 34.3 g/dl (31.0-36.0); Mean Corpuscular Hemoglobin 36.6 pg (27.0-33.0); Mean Corpuscular Volume 106.6 fL (80.0-98.0); Mean Platelet Volume 11.7 fL (9.4-12.4); Monocytes Absolute Auto 0.6 X10*3/uL (0.1-1.2); Monocytes Percent Auto 10.9 % (2-11); Neutrophils Absolute Auto 3.4 x10*3/uL (2.0-8.3); Neutrophils Percent Auto 67.9 % (45-73); Platelet Count 250 X10*3/uL (160-400); Red Cell Distribution Width 13.5 % (11.0-16.0)
[2022-02-12 10:43] LABS: Alanine Aminotransferase 8 U/L (0-40); Albumin Level 4.2 g/dL (3.5-5.0); Alkaline Phosphatase 45 U/L (39-117); Anion Gap 12 (12-20); Aspartate Amino Transferase 12 U/L (5-37); Bilirubin Total 1.1 mg/dL (0.0-1.0); Blood Urea Nitrogen 10 mg/dL (9-16); Calcium 8.9 mg/dL (8.4-10.2); Carbon Dioxide 24 mmol/L (22-29); Chloride 105 mmol/L (96-108); Cholesterol 105 mg/dL; Estimated Average Glucose 123 mg/dL; Estimated Glomerular Filt Rate > 60; Glucose Fasting 114 mg/dL (60-99); HDL Cholesterol 41 mg/dL; Hemoglobin A1c % 5.9 %; LDL Cholesterol Calculated 50 mg/dl; Sodium 137 mmol/L (135-145); Triglycerides 73 mg/dL
[2022-02-12 11:07] LABS: TSH reflex Free T4 0.77 uIU/mL (0.32-4.0); Vitamin D 25-OH Total 53.7 ng/mL (>30)
[2022-02-12 13:52] LABS: Appearance Urine CLOUDY; Color Urine YELLOW; Glucose Urine UA NEG (NEG); Leukocyte Esterase Urine NEG (NEG); Nitrite Urine NEG (NEG); PH 5.5 (5.0-8.0); Specific Gravity - Urine >= 1.030 (1.005-1.025); UACC Culture Trigger NO; Urine Blood NEG (NEG); Urine Ketones NEG (NEG); Urine Protein 1+ MG/DL (NEG-TRACE)
[2022-02-12 14:08] LABS: UACC CULT YES
[2022-02-12 14:09] LABS: Bacteria Urine 1+ /LPF; Mucus Urine 1+ /LPF; RBC Urine 0-2 /HPF (0); Squamous Epithelial Cell Urine 3+ /LPF
[2022-02-12 15:39] LABS: Creatinine Urine 272.46 mg/dL; Microalbum/Creatinine Ratio Ur 39.6 ug/mg cr
== END 2022-02-12 07:47 | disposition home or self-care (01) ==
LOC: HO.10HDL 07:46
PROVIDERS: Visit Provider Internal Medicine
DX: E78.00 Pure hypercholesterolemia, unspecified (principal); E11.9 Type 2 diabetes mellitus without complications; E55.9 Vitamin D deficiency, unspecified; I10 Essential (primary) hypertension
CPT/HCPCS: 36415; 80053; 80061; 81001; 82043; 82306; 83036; 84443; 85025; 87086

== ENCOUNTER 2022-04-11 08:45 | Outpatient (REF) | payer MEDICARE, OTHER, SELFPAY ==
--- NOTE | ~2022-04-11 | US_ITS ---
EXAMINATION: US ABDOMEN COMPLETE CLINICAL INFORMATION: Unspecified abdominal pain. COMPARISON: Renal ultrasound dated 11/16/2021. TECHNIQUE: Real-time imaging of the abdominal viscera. FINDINGS: PANCREAS: Visualized portions unremarkable. ABDOMINAL AORTA: Visualized portions unremarkable. INFERIOR VENA CAVA: Plus portions unremarkable. LIVER: Unremarkable. GALLBLADDER: Status post cholecystectomy. COMMON BILE DUCT: Normal in caliber measuring 0.5 cm in diameter. RIGHT KIDNEY: 11.5 cm. Unremarkable. LEFT KIDNEY: 10.9 cm unremarkable. SPLEEN: 13.1 cm unremarkable. FREE FLUID: None. US/US abdomen complete IMPRESSION: Unremarkable abdominal ultrasound.
== END 2022-04-11 08:46 | disposition home or self-care (01) ==
LOC: HO.US 08:45
PROVIDERS: Visit Provider Internal Medicine
DX: R10.9 Unspecified abdominal pain (principal); R17 Unspecified jaundice
CPT/HCPCS: 76700

== ENCOUNTER 2022-06-14 07:33 | Outpatient (REF) | payer MEDICARE, OTHER, SELFPAY ==
[2022-06-14 10:31] LABS: MANUAL DIFF FLAG NO
[2022-06-14 10:56] LABS: Basophils Absolute Auto 0.1 X10*3/uL (0.0-0.2); Basophils Percent Auto 0.8 % (0-2); Eosinophils Absolute Auto 0.1 X10*3/uL (0.0-0.4); Eosinophils Percent Auto 1.2 % (0-4); Hematocrit 30.7 % (42.0-52.0); Hemoglobin 10.4 g/dl (14.0-18.0); Imm Gran Abs Auto 0.03 X10*3/uL (0.00-0.03); Imm Gran Pct Auto 0.5 % (0.0-0.4); Lymphocytes Absolute Auto 1.2 X10*3/uL (1.2-4.9); Lymphocytes Percent Auto 20.4 % (20-40); Mean Corpuscular HGB Conc 33.9 g/dl (31.0-36.0); Mean Corpuscular Hemoglobin 36.9 pg (27.0-33.0); Mean Corpuscular Volume 108.9 fL (80.0-98.0); Monocytes Absolute Auto 0.7 X10*3/uL (0.1-1.2); Monocytes Percent Auto 11.9 % (2-11); Neutrophils Percent Auto 65.2 % (45-73); Platelet Count 275 X10*3/uL (160-400); Red Blood Count 2.82 X10*6/uL (4.60-5.80); Red Cell Distribution Width 13.4 % (11.0-16.0); White Blood Count 6.1 X10*3/uL (4.8-10.8)
[2022-06-14 11:07] LABS: Alanine Aminotransferase 8 U/L (0-40); Albumin Level 4.3 g/dL (3.5-5.0); Alkaline Phosphatase 45 U/L (39-117); Anion Gap 15 (12-20); Aspartate Amino Transferase 15 U/L (5-37); Bilirubin Total 0.9 mg/dL (0.0-1.0); Blood Urea Nitrogen 13 mg/dL (9-16); Calcium 9.2 mg/dL (8.4-10.2); Carbon Dioxide 27 mmol/L (22-29); Chloride 103 mmol/L (96-108); Cholesterol 113 mg/dL; Estimated Glomerular Filt Rate > 60; Glucose Fasting 110 mg/dL (60-99); HDL Cholesterol 46 mg/dL; Iron 153 mcg/dL (45-160); LDL Cholesterol Calculated 57 mg/dl; Percent Iron Saturation 67 % (15-50); Potassium 4.5 mmol/L (3.3-5.1); Sodium 140 mmol/L (135-145); Total Iron Binding Capacity 229 mcg/dL (228-428); Total Protein 7.2 g/dL (6.5-8.0); Triglycerides 51 mg/dL; Unsaturated Iron Binding 76 ug/dL
[2022-06-14 11:25] LABS: Estimated Average Glucose 111 mg/dL; Hemoglobin A1c % 5.5 %
[2022-06-14 11:28] LABS: TSH reflex Free T4 1.09 uIU/mL (0.32-4.0)
[2022-06-14 14:04] LABS: Appearance Urine Clear; Color Urine Yellow; Glucose Urine UA Negative (Negative); Leukocyte Esterase Urine Negative (Negative); Nitrite Urine Negative (Negative); PH 6.5 (5.0-9.0); Specific Gravity - Urine 1.015 (1.005-1.025); Urine Blood Negative (Negative); Urine Ketones Negative (Negative); Urine Protein Trace mg/dL (Neg-Trace)
[2022-06-14 14:16] LABS: Creatinine Urine 138.13 mg/dL; Microalbum/Creatinine Ratio Ur 58.6 ug/mg cr
== END 2022-06-14 07:34 | disposition home or self-care (01) ==
LOC: HO.10HDL 07:33
PROVIDERS: Visit Provider Internal Medicine
DX: I10 Essential (primary) hypertension (principal); E11.9 Type 2 diabetes mellitus without complications; E78.00 Pure hypercholesterolemia, unspecified; E55.9 Vitamin D deficiency, unspecified; D50.9 Iron deficiency anemia, unspecified
CPT/HCPCS: 36415; 80053; 80061; 81003; 82043; 82306; 83036; 83540; 84443; 85025

== ENCOUNTER → 2022-09-19 13:53 | Outpatient (REF) | payer MEDICARE, SELFPAY ==
--- NOTE | 2022-09-19 13:58 | HM_ITS ---
Conclusion: 1. Patient was monitored for total period of 3 days 2. Baseline rhythm appears to be normal sinus rhythm with average heart of 77 beats per minute 3. Total of 5081 PACs accounting for 1.5% total beats account for frequent PACs with occasional blocked PACs 4. Total of 2287 PVCs accounting for 0.7% of total beats accounting for occasional PACs 5. No significant pauses or bradycardia 6. No patient reported symptoms MTDD
== END ==
LOC: HO.CARD 13:53
PROVIDERS: Visit Provider Internal Medicine
DX: I48.92 Unspecified atrial flutter (principal)
CPT/HCPCS: 93242

== ENCOUNTER 2022-10-11 10:02 | Outpatient (REF) | payer MEDICARE, SELFPAY ==
[2022-10-11 10:55] LABS: MANUAL DIFF FLAG NO
[2022-10-11 11:04] LABS: Basophils Percent Auto 0.8 % (0-2); Eosinophils Absolute Auto 0.1 X10*3/uL (0.0-0.4); Hematocrit 29.6 % (42.0-52.0); Hemoglobin 10.1 g/dl (14.0-18.0); Imm Gran Abs Auto 0.04 X10*3/uL (0.00-0.03); Imm Gran Pct Auto 0.8 % (0.0-0.4); Lymphocytes Absolute Auto 1.1 X10*3/uL (1.2-4.9); Lymphocytes Percent Auto 21.3 % (20-40); Mean Corpuscular HGB Conc 34.1 g/dl (31.0-36.0); Mean Corpuscular Hemoglobin 38.1 pg (27.0-33.0); Mean Platelet Volume 11.5 fL (9.4-12.4); Monocytes Absolute Auto 0.6 X10*3/uL (0.1-1.2); Monocytes Percent Auto 12.3 % (2-11); Neutrophils Absolute Auto 3.3 x10*3/uL (2.0-8.3); Neutrophils Percent Auto 63.8 % (45-73); Platelet Count 220 X10*3/uL (160-400); Red Blood Count 2.65 X10*6/uL (4.60-5.80); White Blood Count 5.2 X10*3/uL (4.8-10.8)
[2022-10-11 11:08] LABS: Mean Corpuscular Volume 111.7 fL (80.0-98.0)
[2022-10-11 11:21] LABS: Estimated Average Glucose 111 mg/dL; Hemoglobin A1c % 5.5 %
[2022-10-11 12:41] LABS: Alanine Aminotransferase 13 U/L (0-40); Albumin Level 3.9 g/dL (3.5-5.0); Alkaline Phosphatase 43 U/L (39-117); Anion Gap 13 (12-20); Aspartate Amino Transferase 15 U/L (5-37); Bilirubin Total 1.2 mg/dL (0.0-1.0); Blood Urea Nitrogen 11 mg/dL (9-16); Calcium 8.9 mg/dL (8.4-10.2); Carbon Dioxide 25 mmol/L (22-29); Chloride 107 mmol/L (96-108); Cholesterol 122 mg/dL; Estimated Glomerular Filt Rate > 60; Glucose Fasting 105 mg/dL (60-99); HDL Cholesterol 61 mg/dL; LDL Cholesterol Calculated 52 mg/dl; Potassium 4.2 mmol/L (3.3-5.1); Sodium 141 mmol/L (135-145); Total Protein 6.4 g/dL (6.5-8.0); Triglycerides 45 mg/dL
[2022-10-11 12:47] LABS: Vitamin D 25-OH Total 37.1 ng/mL (>30)
[2022-10-11 13:37] LABS: Appearance Urine Clear; Color Urine Yellow; Glucose Urine UA Negative (Negative); Leukocyte Esterase Urine Negative (Negative); Nitrite Urine Negative (Negative); PH 6.5 (5.0-9.0); Urine Blood Negative (Negative); Urine Ketones Negative (Negative); Urine Protein Trace mg/dL (Neg-Trace)
[2022-10-11 14:02] LABS: Creatinine Urine 108.67 mg/dL; Microalbum/Creatinine Ratio Ur 40.4 ug/mg cr
== END 2022-10-11 10:03 | disposition home or self-care (01) ==
LOC: HO.10HDL 10:02
PROVIDERS: Visit Provider Internal Medicine
DX: E11.9 Type 2 diabetes mellitus without complications (principal); E78.00 Pure hypercholesterolemia, unspecified; R30.0 Dysuria; E55.9 Vitamin D deficiency, unspecified; I10 Essential (primary) hypertension
CPT/HCPCS: 36415; 80053; 80061; 81003; 82043; 82306; 83036; 84443; 85025

== ENCOUNTER → 2022-12-17 14:42 | Outpatient (BNVA) | payer MEDICARE, SELFPAY | PROVIDERS: PCP Internal Medicine; Referring Provider Internal Medicine; Visit Provider Internal Medicine | DX: I48.92 Unspecified atrial flutter (principal); I10 Essential (primary) hypertension; K92.2 Gastrointestinal hemorrhage, unspecified | CPT/HCPCS: 93005; 99212 ==

== ENCOUNTER 2023-06-21 07:33 | Outpatient (REF) | payer MEDICARE, SELFPAY ==
[2023-06-21 10:51] LABS: MANUAL DIFF FLAG NO
[2023-06-21 10:52] LABS: Appearance Urine Clear; Color Urine Yellow; Glucose Urine UA Negative (Negative); Leukocyte Esterase Urine Negative (Negative); Nitrite Urine Negative (Negative); PH 5.5 (5.0-9.0); Specific Gravity - Urine 1.015 (1.005-1.025); Urine Blood Negative (Negative); Urine Ketones Negative (Negative); Urine Protein Negative (Neg-Trace)
[2023-06-21 10:57] LABS: Basophils Percent Auto 0.1 % (0-2); Eosinophils Absolute Auto 0.1 X10*3/uL (0.0-0.4); Eosinophils Percent Auto 1.6 % (0-4); Hematocrit 29.9 % (42.0-52.0); Hemoglobin 10.3 g/dl (14.0-18.0); Imm Gran Pct Auto 2.6 % (0.0-0.4); Lymphocytes Absolute Auto 2.4 X10*3/uL (1.2-4.9); Mean Corpuscular HGB Conc 34.4 g/dl (31.0-36.0); Mean Corpuscular Hemoglobin 36.9 pg (27.0-33.0); Mean Corpuscular Volume 107.2 fL (80.0-98.0); Mean Platelet Volume 11.4 fL (9.4-12.4); Monocytes Absolute Auto 0.9 X10*3/uL (0.1-1.2); Monocytes Percent Auto 12.2 % (2-11); NRBC Pct Auto 0.4 /100WBC (0.0-0.2); Neutrophils Absolute Auto 3.9 x10*3/uL (2.0-8.3); Neutrophils Percent Auto 51.5 % (45-73); Platelet Count 254 X10*3/uL (160-400); Red Blood Count 2.79 X10*6/uL (4.60-5.80); Red Cell Distribution Width 14.6 % (11.0-16.0); White Blood Count 7.6 X10*3/uL (4.8-10.8)
[2023-06-21 11:14] LABS: Estimated Average Glucose 120 mg/dL; Hemoglobin A1c % 5.8 % (<6.0)
[2023-06-21 11:30] LABS: Creatinine Urine 68.74 mg/dL; Microalbum/Creatinine Ratio Ur 14.5 ug/mg cr (<30)
[2023-06-21 11:42] LABS: Alanine Aminotransferase 23 U/L (0-40); Albumin Level 3.8 g/dL (3.5-5.0); Alkaline Phosphatase 43 U/L (39-117); Anion Gap 14 (12-20); Aspartate Amino Transferase 20 U/L (5-37); Bilirubin Total 0.8 mg/dL (0.0-1.0); Blood Urea Nitrogen 19 mg/dL (9-16); Calcium 9.3 mg/dL (8.4-10.2); Carbon Dioxide 24 mmol/L (22-29); Chloride 105 mmol/L (96-108); Cholesterol 119 mg/dL (<200); Estimated Glomerular Filt Rate > 60; Glucose Fasting 80 mg/dL (60-99); HDL Cholesterol 54 mg/dL (>40); Iron 135 mcg/dL (45-160); LDL Cholesterol Calculated 53 mg/dL (<100); Percent Iron Saturation 69 % (15-50); Potassium 3.7 mmol/L (3.3-5.1); Sodium 139 mmol/L (135-145); Total Iron Binding Capacity 197 mcg/dL (228-428); Total Protein 6.4 g/dL (6.5-8.0); Triglycerides 61 mg/dL (<150); Unsaturated Iron Binding 62 ug/dL
[2023-06-21 11:48] LABS: TSH reflex Free T4 1.15 uIU/mL (0.32-4.0); Vitamin D 25-OH Total 39.7 ng/mL (>30)
[2023-06-21 12:01] LABS: Vitamin B12 719 pg/mL (200-900)
== END 2023-06-21 07:34 | disposition home or self-care (01) ==
LOC: HO.10HDL 07:33
PROVIDERS: Visit Provider Internal Medicine
DX: E55.9 Vitamin D deficiency, unspecified (principal); E53.8 Deficiency of other specified B group vitamins; R30.0 Dysuria; E78.00 Pure hypercholesterolemia, unspecified; E11.9 Type 2 diabetes mellitus without complications; D50.9 Iron deficiency anemia, unspecified; I10 Essential (primary) hypertension
CPT/HCPCS: 36415; 80053; 80061; 81003; 82043; 82306; 82570; 82607; 82746; 83036; 83540; 84443; 85025

== ENCOUNTER 2023-06-28 09:36 | Outpatient (AMB) | payer MEDICARE, SELFPAY ==
[2023-06-28 09:43] VITALS: BP 118/68; PULSE 52; O2SAT 99; BMI 23.7
--- NOTE | 2023-06-28 09:43 | A.OFFPC_ITS ---
Vital Signs 06/28/23 09:43 Height 5 ft 10 in Weight 165 lb BMI 23.7 BP 118/68 Blood Pressure Location Lt brachial Position Sitting Pulse 52 Pulse Source Pulse Oximeter Pulse Oximetry (%) 99 Oxygen Delivery Method Room Air Intake Visit Reasons: HTN, DM, hyperlipidemia, anemia, atrial flutter Shared Services And Outsourcing Manager Required: No Accompanied by: Self / Same As Patient Allergies Penicillins Allergy (Intermediate, Verified 06/28/23 10:09) RASH/HIVES Sulfa (Sulfonamide Antibiotics) Allergy (Intermediate, Verified 06/28/23 10:09) RASH/HIVES, hives Medication List - Last Reconciled 06/28/23 by Leonard Ames MD albuterol sulfate 90 mcg/actuation 2 puffs inhalation QID PRN 30 days amlodipine 10 mg PO DAILY lorazepam 1 mg PO TID PRN 90 days metoprolol succinate ER 50 mg PO DAILY omeprazole 20 mg PO BID simvastatin 20 mg PO QPM sitagliptin phosphate 100 mg PO DAILY tadalafil 20 mg PO DAILY PRN 30 days tramadol 50 mg PO BID PRN valsartan 160 mg PO DAILY zolpidem 10 mg PO BEDTIME PRN Tobacco use date assessed: 06/28/23 Fall risk assessment: No Falls in past year Last assessed Fall Risk: 06/28/23 Dental Screening Dental Screen Date: 06/28/23 Did you have a dental visit in the last 12 months?: Yes Did you have a dental problem in the last 6 months where you did not have access to dental care?: No Was dental information given to patient?: Patient has dentist HPI HTN, DM, hyperlipidemia, anemia, atrial flutter HPI Details Patient comes in today for his follow up visit States that he feels okay Reports that he tested positive for COVID at the beginning of last month Was just getting over COVID when he started experiencing increased cough and congestion Went to a walk-in clinic in [place] and had chest x-rays done which showed (+) beginning pneumonia Was prescribed some antibiotics to take and states that his symptoms gradually improved - currently feels that most or all of his symptoms have resolved although he still feels somewhat fatigued States that he did not have much of an appetite when he was sick recently but his appetite is improving He is also scheduled to have some surgery done on his right 2nd toe with [facility] on 08/31/2023 - is not sure yet what is really wrong with it and that his science and operations officer was the one who referred him to [facility] for this He presently denies any headaches or dizziness Denies any chest pains, no SOB No nausea/vomiting, no abdominal pain No change in bowel habits noted Needs his Tramadol Rx refilled today Had his follow up labs done last week - to discuss his results [facility] Medical History Paroxysmal atrial fibrillation Erectile dysfunction Screening for colon cancer Essential hypertension Paroxysmal atrial flutter Insomnia Pyelonephritis Psoriasis Vitamin D deficiency Arthralgia Neuropathy GERD without esophagitis Gastrointestinal hemorrhage Anemia Pure hypercholesterolemia Benign essential hypertension Diabetes mellitus Atrial flutter Surgical History History of colonoscopy S/P ablation of atrial flutter History of inguinal hernia repair History of left hip replacement Family History Father Pneumonia Mother Myocardial infarction Son No problems noted. Daughter No problems noted. Social History Housing: House Alcohol intake: current Alcohol intake frequency: holidays/special occasions only Alcohol type: beer Patient Tobacco Use Status: Former Tobacco user e-Cigarette/Vaping Use: Never Used Second Hand Smoke Exposure: Yes Advance Directives Date on File: 08/26/00 service: Yes Current occupational status: retired Cognitive needs: No Hearing needs: Yes Vision needs: Yes Questionnaire PHQ-9 Over the last 2 weeks, how often have you been bothered by any of the following problems? 1. Little interest or pleasure in doing things: not at all 2. Feeling down, depressed, or hopeless: several days 3. Trouble falling or staying asleep, or sleeping too much: several days 4. Feeling tired or having little energy: not at all 5. Poor appetite or overeating: not at all 6. Feeling bad about yourself - or that you are a failure or have let yourself or your family down: not at all 7. Trouble concentrating on things, such as reading the newspaper or watching television: not at all 8. Moving or speaking so slowly that other people could have noticed. Or the opposite - being so fidgety or restless that you have been moving around a lot more than usual: not at all 9. Thoughts that you would be better off or of hurting yourself in some way: not at all Total score: 2 Depression Screening Interpretation: Negative Depression Screening Done: Yes 72208 - PHQ-9 Billing: Yes Source: Developed by Drs. Contreras David, Violeta Philip, Brandon Sanders and colleagues, with an educational vanessa from [employer]. Thrive Questionnaire Date Thrive assessed: 06/28/23 I am a: Patient What is your living situation today?: I have a steady place to live Within the past 12 months, did the food you bought not last and you didn't have the money to get more?: Never true Within the past 12 months, did you worry whether your food would run out before you got money to buy more?: Never true Do you have trouble paying for medicines?: No Do you have trouble getting transportation to medical appointments?: No Do you have trouble paying your heating and electricity bill?: No Do you have trouble taking care of your child, family member or friend?: No Do you have trouble with day-to-day activities such as bathing, preparing meals, shopping, managing finances, etc.?: No Are you currently unemployed and looking for a job?: No Are you interested in more education?: No Please select the resources that you would like help with: None Currently or been in a relationship where the following occur: no concerns reported AUDIT C Alcohol Use Questionnaire (AUDIT-C) 1. How often do you have a drink containing alcohol?: 2-4 times a month 2. How many drinks containing alcohol do you have on a typical day when you are drinking?: 1 or 2 3. How often do you have six or more drinks on one occasion?: Never Total Score: 2 Score Reviewed/Action Taken: Yes DEVORAH-7 AMB Questionnaire DEVORAH-7 Date DEVORAH - 7 assessed: 06/28/23 Feeling nervous, anxious, or on edge: 1 = Several days Not being able to stop or control worryin = Not at all Worrying too much about different things: 0 = Not at all Trouble relaxin = Not at all Being so restless that it is hard to sit still: 0 = Not at all Becoming easily annoyed or irritable: 0 = Not at all Feeling afraid as if something awful might happen: 0 = Not at all Total DEVORAH-7 score (0-4 normal; 5-9 mild; 10-14 moderate; 15-21 severe): 1 Source: Developed by Drs. Contreras David, Violeta Philip, Brandon Sanders and colleagues, with an educational vanessa from [employer]. DEVORAH-7 Assessment Billing DEVORAH-7 Assessment Tool: DEVORAH-7 Assessment 39592 Review of Systems Const Denies chills, Denies difficulty sleeping (Zolpidem helps), Reports fatigue, Denies fever(s) and Denies headache(s) ENT Denies dysphagia, Denies dizziness, Denies otalgia, Denies headache(s), Denies odynophagia and Denies sore throat Card Denies chest pain, Denies palpitations and Denies dyspnea Resp Denies chest congestion, Reports cough (occasional, non-productive), Denies dyspnea and Denies wheezing GI Denies abdominal pain, Denies hematochezia, Denies constipation, Denies dysphagia, Denies heartburn, Denies diarrhea, Denies nausea and Denies odynophagia Denies dysuria, Denies nocturia and Denies urinary frequency Musc Reports back pain (over the right sciatic/SI joint area, on and off), Reports arthralgias (right knee ) and Reports stiffness Skin/Breast Denies rash Neuro Denies dizziness and Denies headache(s) Endo Reports fatigue and Denies palpitations Aller/Immun Denies wheezing Physical exam (Primary Care) Vital Signs: Last Vital Signs Pulse 52 06/28/23 09:43 BP 118/68 06/28/23 09:43 Pulse Ox 99 06/28/23 09:43 Oxygen Delivery Method Room Air 06/28/23 09:43 BMI result Body Mass Index 23.7 Tobacco/Smoking Status: Tobacco use Status Tobacco use date assessed 06/28/23 06/28/23 09:49 Patient Tobacco Use Status Former Tobacco user 06/28/23 09:49 e-Cigarette/Vaping Use Never Used 06/28/23 09:49 PHQ-9: PHQ-9 Score PHQ-9: Total score 2 06/28/23 09:49 Depression Screening Interpretation: Negative Thrive Assessment: Date of Thrive Assessment Date Thrive assessed 06/28/23 06/28/23 09:49 Currently or been in a relationship where the following occur: no concerns reported Const General: no acute distress and alert HENMT Ears: TM's normal bilaterally and EAC's normal Throat: Yes posterior oropharynx normal and Yes tonsils normal (no TP congestion noted) Neck Neck: Yes no lymphadenopathy and Yes supple Resp Auscultation: no crackles, no rales, rhonchi (occasional) throughout and no wheezes Cardio Rate: regular rate Rhythm: regular rhythm Heart sounds: no murmurs GI Palpation (GI): Soft to palpation and nontender Auscultation: normal bowel sounds Back/Spine/Pelvis Sacroiliac joints: on the right tender to palpation Skin Rashes: no rashes Extrem General: Yes no clubbing, cyanosis or edema Right lower extremity: knee Details: tenderness and normal ROM; no swelling Results Reviewed Results Reviewed: Laboratory Tests 06/21/23 06/21/23 06/21/23 07:40 07:40 07:40 WBC Hgb Hct Plt Count Sodium 139 Potassium 3.7 Creatinine 1.01 Estimated GFR > 60 Fasting Glucose 80 Hemoglobin A1c % 5.8 Calcium 9.3 Iron 135 TIBC 197 L % Saturation 69 H AST ALT Triglycerides Cholesterol LDL Cholesterol, Calc HDL Cholesterol Vitamin B12 25-OH Vitamin D Total Folate TSH Ur Specific [place] Urine Protein Urine Glucose (UA) Urine Blood Microalb/Creat Ratio 06/21/23 06/21/23 06/21/23 07:40 10:00 10:00 WBC 7.6 Hgb Hct Plt Count 254 Sodium Potassium Creatinine Estimated GFR Fasting Glucose Hemoglobin A1c % Calcium Iron TIBC % Saturation AST 20 ALT 23 Triglycerides 61 Cholesterol 119 LDL Cholesterol, Calc 53 HDL Cholesterol 54 Vitamin B12 719 25-OH Vitamin D Total 39.7 Folate 11.0 TSH 1.15 Ur Specific [place] 1.015 Urine Protein Negative Urine Glucose (UA) Negative Urine Blood Negative Microalb/Creat Ratio 14.5 06/21/23 06/21/23 10:00 10:00 WBC Hgb 10.3 L Hct 29.9 L Plt Count Sodium Potassium Creatinine Estimated GFR Fasting Glucose Hemoglobin A1c % Calcium Iron TIBC % Saturation AST ALT Triglycerides Cholesterol LDL Cholesterol, Calc HDL Cholesterol Vitamin B12 25-OH Vitamin D Total Folate TSH Ur Specific [place] Urine Protein Urine Glucose (UA) Urine Blood Microalb/Creat Ratio Assessment and Plan Assessment & Plan (1) Pure hypercholesterolemia: Code(s): E78.00 - Pure hypercholesterolemia, unspecified Plan: Results of his labs done last week reviewed and discussed with patient Reinforced low cholesterol diet Continue Simvastatin 20 mg QD Will recheck his labs and fasting lipids in 4 months for follow up (2) Benign essential hypertension: Code(s): I10 - Essential (primary) hypertension Plan: Reinforced low sodium diet - goal is systolic BP of at least 140 to 150 mm or less Continue Amlodipine 10 mg QD, Losartan 100 mg QD and Metoprolol ER 50 mg QD (3) Atrial flutter: Comment: S/P successful ablation by Dr. Ananth Dutton at [facility] in [place] on 01/12/2019 Code(s): I48.92 - Unspecified atrial flutter Qualifiers: Atrial flutter type: typical Qualified Code(s): I48.3 - Typical atrial flutter Plan: Reports no recurrence of his symptoms (of palpitations) and he currently remains in sinus rhythm Follow up with cardiology as scheduled (4) Diabetes mellitus: Code(s): E11.9 - Type 2 diabetes mellitus without complications Qualifiers: Diabetes mellitus type: type 2 Diabetes mellitus long-term insulin use: without termite control representative use Diabetes mellitus complication status: without complication Qualified Code(s): E11.9 - Type 2 diabetes mellitus without complications Plan: Hgb1c is at 5.8% on his labs done last week; was at 5.5% a few months ago - goal is <7.0% Reinforced diabetic diet Continue Metformin 500 mg 2 tablets in AM and 1 tablet in PM (BID) and Januvia 100 mg QD (5) Serum total bilirubin elevated: Code(s): R17 - Unspecified jaundice Plan: Patient's total serum bilirubin level is currently back to normal Abdominal US done a few months ago also came out normal Will continue to monitor his LFTs regularly (6) GERD without esophagitis: Code(s): K21.9 - Gastro-esophageal reflux disease without esophagitis Plan: Dietary restrictions reinforced Continue Omeprazole 20 mg QD (7) Macrocytic anemia: Code(s): D53.9 - Nutritional anemia, unspecified Plan: H/H were stable but patient remains anemic - his H/H has been staying around 10.3/29.9 for the past couple of years now Iron tablets were discontinued a few months ago due to GI side effects His WBC count and platelet count were both normal B12 and folate levels checked last week also came out normal Will refer him to hematology for further evaluation and management (8) Neuropathy: Code(s): G62.9 - Polyneuropathy, unspecified Plan: Symptoms remain adequately controlled on current Rx - continue Gabapentin 400 mg BID (9) Arthralgia: Code(s): M25.50 - Pain in unspecified joint Qualifiers: Joint pain location: unspecified Qualified Code(s): M25.50 - Pain in unspecified joint Plan: Most recently in his right knee Sees orthopedics at the [facility] when needed Continue Tramadol 50 mg 1 to 2 times a day PRN for pain (Rx refilled); also has Oxycodone 5 mg that he takes very sparingly and only for severe pain when needed (10) Pain of right sacroiliac joint: Code(s): M53.3 - Sacrococcygeal disorders, not elsewhere classified Plan: Possibly referred pain / radicular pain from his lumbar spine Lumbar spine x-rays done back in 2019 revealed (+) multilevel degenerative changes If his right-sided low back pain/sciatica pain persist, can consider repeat imaging studies as well as right SI joint x-rays for further evaluation (11) Vitamin D deficiency: Code(s): E55.9 - Vitamin D deficiency, unspecified Plan: Corrected - continue Vitamin D3 1000 units QD (12) Psoriasis: Code(s): L40.9 - Psoriasis, unspecified Plan: Continue Clobetasol ointment 0.05% apply to affected areas BID PRN (13) Insomnia: Code(s): G47.00 - Insomnia, unspecified Qualifiers: Insomnia type: unspecified Qualified Code(s): G47.00 - Insomnia, unspecified Plan: Sleep hygiene reinforced Continue Zolpidem 10 mg Q HS PRN Plan Follow up in 4 months Orders: Orders TSH reflex Free T4 4 Months E78.00 - Pure hypercholesterolemia, unspecified Hemoglobin A1c 4 Months E11.9 - Type 2 diabetes mellitus without complications Vitamin D 25-OH Total 4 Months E55.9 - Vitamin D deficiency, unspecified Vitamin B12 and Folate 4 Months E53.8 - Deficiency of other specified B group vitamins Complete Blood Count Auto Diff 4 Months I10 - Essential (primary) hypertension Comprehensive [place]. Panel Fast 4 Months E78.00 - Pure hypercholesterolemia, unspecified Lipid Panel 4 Months E78.00 - Pure hypercholesterolemia, unspecified UA CC w/rflx Micro + Cult 4 Months R30.0 - Dysuria Referrals Hematology & Oncology Referral D53.9 - Nutritional anemia, unspecified Medications: New tramadol 50 mg PO BID PRN 60 tabs 0RF pain Coding Level of Care Code Est Pt Level 4 (41837) Diagnoses Pure hypercholesterolemia E78.00 Benign essential hypertension I10 Typical atrial flutter I48.3 Atrial flutter type: typical Type 2 diabetes mellitus without complication, without long-term current use of insulin E11.9 Diabetes mellitus type: type 2 Diabetes mellitus termite control representative insulin use: without termite control representative use Diabetes mellitus complication status: without complication Serum total bilirubin elevated R17 GERD without esophagitis K21.9 Macrocytic anemia D53.9 Neuropathy G62.9 Arthralgia, unspecified joint M25.50 Joint pain location: unspecified Pain of right sacroiliac joint M53.3 Vitamin D deficiency E55.9 Psoriasis L40.9 Insomnia, unspecified type G47.00 Insomnia type: unspecified Additional Codes DEVORAH-7 Assessment Billing - DEVORAH-7 Assessment Tool: DEVORAH-7 Assessment [id number] ([id number])
== END 2023-06-28 10:30 | disposition home or self-care (01) ==
PROVIDERS: PCP Nurse Practitioner Family; Visit Provider Internal Medicine
DX: E78.00 Pure hypercholesterolemia, unspecified (principal); I48.3 Typical atrial flutter; E11.42 Type 2 diabetes mellitus with diabetic polyneuropathy; G62.9 Polyneuropathy, unspecified; I10 Essential (primary) hypertension; R17 Unspecified jaundice; K21.9 Gastro-esophageal reflux disease without esophagitis; D53.9 Nutritional anemia, unspecified; M25.50 Pain in unspecified joint; M53.3 Sacrococcygeal disorders, not elsewhere classified; E55.9 Vitamin D deficiency, unspecified; L40.9 Psoriasis, unspecified
CPT/HCPCS: 99214

== ENCOUNTER → 2023-07-22 15:00 | Outpatient (BNV) | payer MEDICARE, SELFPAY | PROVIDERS: PCP Internal Medicine; Visit Provider Internal Medicine Medical Oncology | DX: D64.9 Anemia, unspecified (principal) | CPT/HCPCS: 99204 ==

== ENCOUNTER 2023-09-05 19:41 | Inpatient (IN) | payer MEDICARE, OTHER, SELFPAY ==
--- NOTE | 2023-09-05 | ECG_ITS ---
Test Reason : WEAKNESS Blood Pressure : / mmHG Vent. Rate : 122 BPM Atrial Rate : 111 BPM P-R Int : 000 ms QRS Dur : 110 ms QT Int : 350 ms P-R-T Axes : 000 -39 104 degrees QTc Int : 498 ms Possible Atrial tachycardia Left axis deviation Incomplete right bundle branch block Septal infarct , age undetermined ST & T wave abnormality, consider anterolateral ischemia Abnormal ECG When compared with ECG of 19-AUG-2017 20:41, Possible Atrial tachycardia has replaced Normal sinus rhythm Septal infarct is now Present T wave inversion now evident in Anterolateral leads Referred By: Generic ED Physician Electronically Signed By:DONALD MCCLAIN MD
--- NOTE | ~2023-09-05 | CT_ITS ---
EXAMINATION: CTA ABDOMEN AND PELVIS WITH AND WITHOUT CONTRAST CLINICAL INFORMATION: Abdominal pain COMPARISON: Ultrasound abdomen from 04/11/2022 CT abdomen and pelvis from 07/29/2018 TECHNIQUE: Multidetector volumetric CT imaging of the abdomen and pelvis was performed before and after the administration of 85 mL of Omnipaque Omnipaque 350 intravenous contrast without immediate adverse reactions. Axial MIP volume rendering provided. Sagittal and coronal reformatted images were obtained. This CT examination was performed using dose optimization techniques as appropriate, variously including the following: *Automated exposure control *Adjustment of mA and/or kV according to patient size (this includes techniques or standardized protocols for targeted exams where dose is matched to indication/reason for exam; i.e. extremities or head) *Use of iterative reconstruction technique DLP: 1437 mGy-cm. FINDINGS: LOWER LUNGS: Bibasilar atelectasis. No pneumothorax. No large pleural effusion. LIVER, GALLBLADDER, AND BILIARY TREE: The liver is normal in size, shape, and attenuation. No focal hepatic lesion or biliary ductal dilatation is present. The gallbladder is surgically absent. PANCREAS: Mild atrophy of the pancreas. SPLEEN: Unremarkable. ADRENAL GLANDS: Unremarkable. KIDNEYS AND URETERS: The kidneys are normal in size, shape, and attenuation. No hydronephrosis, hydroureter, or calculi seen. No perinephric stranding. BLADDER: Unremarkable. GASTROINTESTINAL TRACT: Prominent colonic diverticulosis without acute diverticulitis. Small hiatal hernia. The small and large bowel are unremarkable. The appendix is not definitively visualized. ABDOMINAL WALL: Fat filled bilateral inguinal hernias. LYMPH NODES: Subcentimeter bilateral inguinal and mesenteric lymph nodes are noted, not enlarged per size criteria. Calcified retroperitoneal lymph nodes. VASCULAR: No evidence of active extravasation Abdominal aorta is nonaneurysmal. Atherosclerotic aspirations of the abdominal aorta and its branches. Celiac artery is patent. Hepatic artery arises from the aorta. Superior mesenteric artery is patent with calcified and noncalcified plaque along the ostium and proximal segment. Single bilateral renal arteries with atherosclerotic calcifications along its proximal segment bilaterally. The inferior mesenteric artery is patent. PELVIC VISCERA: Prostate measures 5.3 cm. OSSEOUS STRUCTURES: Left hip arthroplasty hardware with streak artifact. Grade 1 retrolisthesis of L3 on L4. Grade 1 anterolisthesis of L4 and L5. Multilevel degenerative changes of the thoracolumbar and lumbosacral spine. CT/CT gi bleed abd pel wo/w IVcon IMPRESSION: 1. No evidence of active extravasation. 2. Prominent colonic diverticulosis without acute diverticulitis. 3. Prostate measures 5.3 cm. 4. Grade 1 retrolisthesis of L3 on L4. Grade 1 anterolisthesis of L4 and L5.
[2023-09-05 19:46] VITALS: BP 157/78; PULSE 130; O2SAT 99
[2023-09-05 19:47] VITALS: BP 136/60; PULSE 116; RESP 18; TEMP 37.2; O2SAT 97; BMI 23.9
--- NOTE | 2023-09-05 19:56 | ED.GENADULT ---
HPI - General Adult General Chief complaint: General Medical Stated complaint: general weakness, SOB, rectal bleeding x4 days Time Seen by Provider: 09/05/23 19:47 Source: patient Mode of arrival: EMS History of Present Illness HPI narrative: 88-year-old male with 4 days of painless dark stool, 4-5 times a day, since taking aspirin a few days ago. He does have a remote history of undergoing a Watchman like procedure for atrial fibrillation but denies being on anticoagulation at this time. Related Data Previous Rx's Medication Instructions Recorded albuterol sulfate 90 mcg/actuation 2 puff inhalation QID PRN 10/17/20 aerosol inhaler shortness of breath or wheezing 30 days #8.5 grams tadalafil 20 mg tablet 20 mg PO DAILY PRN sexual activity 01/19/22 30 days #10 tabs simvastatin 20 mg tablet 20 mg PO QPM #90 tabs 12/01/22 sitagliptin phosphate 100 mg tablet 100 mg PO DAILY #90 tabs 12/30/22 lorazepam 1 mg tablet 1 mg PO TID PRN anxiety 90 days 04/24/23 #270 tabs tramadol 50 mg tablet 50 mg PO BID PRN pain #60 tabs 06/28/23 zolpidem 10 mg tablet 10 mg PO BEDTIME PRN insomnia #90 07/03/23 tabs amlodipine 10 mg tablet 10 mg PO DAILY 90 days #90 tabs 07/08/23 metoprolol succinate 50 mg 50 mg PO DAILY #90 tabs 07/08/23 tablet,extended release 24 hr valsartan 160 mg tablet 160 mg PO DAILY #90 tabs 07/08/23 omeprazole 20 mg capsule,delayed 20 mg PO BID #180 caps 07/25/23 release Allergies Allergy/AdvReac Type Severity Reaction Status Date / Time Penicillins Allergy Intermediate RASH/HIVES Verified 06/28/23 10:09 Sulfa (Sulfonamide Allergy Intermediate RASH/HIVES, Verified 06/28/23 10:09 Antibiotics) hives Review of Systems Review of Systems: Pertinent positives and negatives as stated in HPI [facility] Past Medical History Source: nursing notes reviewed Onset Date is defined in the Problem List Problems that require an onset date and time if occurred within 24 hrs of arrival to the ED Aortic Dissection and Rupture; Neurologic impairment; Cardiopulmonary Arrest; Endotracheal Intubation; Insertion or Replacement of Mechanical Circulatory Assist Device Medical History Paroxysmal atrial fibrillation Erectile dysfunction Screening for colon cancer Essential hypertension Paroxysmal atrial flutter Insomnia Pyelonephritis Psoriasis Vitamin D deficiency Arthralgia Neuropathy GERD without esophagitis Gastrointestinal hemorrhage Anemia Pure hypercholesterolemia Benign essential hypertension Diabetes mellitus Atrial flutter Surgical History History of colonoscopy S/P ablation of atrial flutter History of inguinal hernia repair History of left hip replacement Family History Family History Father Pneumonia Mother Myocardial infarction Son No problems noted. Daughter No problems noted. Social History Social History Housing: House Alcohol intake: current Alcohol intake frequency: a few times a week Alcohol type: beer and hard liquor Patient Tobacco Use Status: Former Tobacco user Tobacco use type: Cigarette e-Cigarette/Vaping Use: Never Used Second Hand Smoke Exposure: Yes Use of substances other than those prescribed or required for medical reasons: No Advance Directives: Yes Advance Directives Information Provided: No Advance Directives on File: No Advance Directives Date on File: 08/26/00 service: Yes Current occupational status: retired Cognitive needs: No Hearing needs: Yes Vision needs: Yes Physical Exam ED Vital Signs: Vital Signs - 24 hr 09/05/23 19:47 09/05/23 20:51 09/05/23 21:51 Temperature 98.9 F 98.1 F 98.6 F Pulse Rate 116 H 89 84 Respiratory Rate 18 15 13 Blood Pressure 136/60 128/53 L 126/64 Pulse Oximetry 97 98 Oxygen Delivery Method Room Air Room Air 09/05/23 22:13 Temperature 98.1 F Pulse Rate 86 Respiratory Rate 16 Blood Pressure 128/58 L Pulse Oximetry Oxygen Delivery Method BMI result Body Mass Index 23.9 VITAL SIGNS: Reviewed. GENERAL: Well developed, well nourished, in no acute distress. HEAD: Normocephalic/ataumatic EYES: PERRLA, EOMI, conjunctival pallor EARS: Ext canals without abnormality NOSE: Nares patent bilateral OROPHARYNX: no oral lesions noted, posterior pharynx clear, pale mucosa NECK: Supple, no adenopathy LUNGS: Normal breath sounds. No adventitious sounds or accessory muscle use. SpO2<97> CARDIOVASCULAR: Regular rate and rhythm without noted murmurs ABDOMEN: Soft, non-tender, non-distended with bowel sounds. RECTAL: melena MUSCULOSKELETAL: No tenderness, deformities, or effusions noted on gross inspection. EXTREMITIES: No cyanosis, clubbing or edema. SKIN: Inspection of the skin reveals no rashes, +pallor NEUROLOGIC: Alert and oriented x 4. Strength and sensation to light touch were grossly intact x 4. Medications Administered Discontinued Medications Generic Name Dose Route Start Last Admin Trade Name Freq PRN Reason Stop Dose Admin Sodium Chloride 100 mls @ 100 mls/hr 09/05/23 19:57 09/05/23 21:43 Ns IV 09/05/23 20:56 100 mls/hr ONCE ONE Administration Sodium Chloride 500 mls @ 999 mls/hr 09/05/23 20:00 09/05/23 22:14 Ns IV 09/05/23 20:30 Infused .Q31M GLENDY Infusion Iohexol 85 ml 09/05/23 21:35 09/05/23 21:36 Iohexol 350 Mg/Ml 100 Ml Infus..Btl IV 09/05/23 21:36 85 ml ONCE ONE Administration Pantoprazole Sodium 80 mg 09/05/23 20:27 09/05/23 21:42 Pantoprazole Sodium 40 Mg/10 Ml Vial IVPUSH 09/05/23 20:28 80 mg ONCE ONE Administration Medical Decision Making Medical Decision Making MDM Narrative: 88-year-old male with history and clinical presentation, DDX: Acute painless GI bleed, clinically symptomatic with tachycardia and pallor INTERVENTION: 2 units PRBC, IV push Protonix, received a call stating that hemoglobin-5 I reviewed all investigations and hematologic indices significant for acute blood loss anemia, there is no leukocytosis or thrombocytopenia. Chemistry abscesses negative for demonstrated KIRBY or electrolyte/liver enzyme derangements. Fecal occult is positive for the presence of blood. 2202: I discussed the case with Dr. Montanez who agrees with current treatment plan and plans for EGD in the morning. 5: I discussed case with inpatient hospitalist who accepts admission. 2252: I reviewed CT scan which is negative for active extravasation. Patient remains hemodynamically stable and is otherwise admitted to the hospitalist. Differential Diagnosis Differential Diagnoses: The differential diagnosis associated with the presentation includes Please see the discussion above Admission/Observation Consideration of admission/observation: Escalation of care including admission/observation considered Please see the discussion above Consult Healthcare Provider Management of the patient was discussed with: Hospitalist and Marketing Consultant Please see the discussion above Lab Data MDM Lab Attestation statement: I reviewed the patient's lab results. Please see the discussion above 09/05/23 20:11 09/05/23 20:11 Labs: Lab Results 09/05/23 09/05/23 Range/Units 20:00 20:11 WBC 7.3 (4.8-10.8) X10*3/uL RBC 1.54 L D (4.60-5.80) X10*6/uL Hgb 5.7 L* D (14.0-18.0) g/dl Hct 17.3 L* D (42.0-52.0) % MCV 112.3 H (80.0-98.0) fL MCH 37.0 H (27.0-33.0) pg MCHC 32.9 (31.0-36.0) g/dl RDW 15.9 (11.0-16.0) % Plt Count 209 (160-400) X10*3/uL MPV 11.4 (9.4-12.4) fL Absolute Nucleated RBC 0.040 H (0.0-0.012) X10*3/uL Nucleated RBC % (auto) 0.5 H (0.0-0.2) /100WBC Sodium 136 (135-145) mmol/L Potassium 4.3 (3.3-5.1) mmol/L Chloride 106 (96-108) mmol/L Carbon Dioxide 21 L (22-29) mmol/L Anion Gap 13 (12-20) BUN 18 H (9-16) mg/dL Creatinine 1.07 (0.5-1.4) mg/dL Estim Creat Clear Calc 51.1 Estimated GFR > 60 POC Glucose 195 H (60-115) mg/dL Random Glucose 189 H (60-115) mg/dL Calcium 8.4 D (8.4-10.2) mg/dL Total Bilirubin 0.8 (0.0-1.0) mg/dL AST 11 (5-37) U/L ALT 8 (0-40) U/L Alkaline Phosphatase 39 (39-117) U/L Total Protein 5.9 L (6.5-8.0) g/dL Albumin 3.6 (3.5-5.0) g/dL Stool Occult Blood POSITIVE (NEGATIVE) Blood Type O Positive Antibody Screen NEGATIVE Crossmatch See Detail Independent Interpretation I performed an independent interpretation of an: EKG Interpretation: Atrial flutter suspected, HR-122, no STEMI Radiology Impression Discussion of test interpretation with radiology: I have reviewed the radiologist's reading. Radiologist Impression: Please see the discussion above External Record Review External record reviewed: Outpatient record, Prior outpatient labs and Prior outpatient radiology Chronic Conditions Patient?s care impacted by: Diabetes and Hypertension Critical Care Time Critical Care Time Critical Care Time: Yes Total Critical Care Time: 60 Attestation: I personally attest to this time spent taking care of the patient. Discharge Plan Discharge Clinical Impression: Acute upper GI bleed, Acute blood loss anemia Patient Disposition: Admitted As Inpatient
[2023-09-05 20:17] LABS: Mean Corpuscular HGB Conc 32.9 g/dl (31.0-36.0); Mean Platelet Volume 11.4 fL (9.4-12.4); NRBC Pct Auto 0.5 /100WBC (0.0-0.2); OBS Int Ctl Valid YES; OBS1 POSITIVE (NEGATIVE); Platelet Count 209 X10*3/uL (160-400); Red Blood Count 1.54 X10*6/uL (4.60-5.80); Red Cell Distribution Width 15.9 % (11.0-16.0); White Blood Count 7.3 X10*3/uL (4.8-10.8)
[2023-09-05 20:19] LABS: Glucose, Whole Blood 195 mg/dL (60-115)
[2023-09-05 20:19] LABS: Mean Corpuscular Volume 112.3 fL (80.0-98.0)
[2023-09-05 20:22] LABS: Hematocrit 17.3 % (42.0-52.0); Hemoglobin 5.7 g/dl (14.0-18.0)
[2023-09-05 20:31] LABS: Alanine Aminotransferase 8 U/L (0-40); Albumin Level 3.6 g/dL (3.5-5.0); Alkaline Phosphatase 39 U/L (39-117); Anion Gap 13 (12-20); Aspartate Amino Transferase 11 U/L (5-37); Bilirubin Total 0.8 mg/dL (0.0-1.0); Blood Urea Nitrogen 18 mg/dL (9-16); Calcium 8.4 mg/dL (8.4-10.2); Carbon Dioxide 21 mmol/L (22-29); Chloride 106 mmol/L (96-108); Creatinine Clr Calc Pharmacy 51.1; Estimated Glomerular Filt Rate > 60; Glucose Random 189 mg/dL (60-115); Potassium 4.3 mmol/L (3.3-5.1); Sodium 136 mmol/L (135-145); Total Protein 5.9 g/dL (6.5-8.0)
[2023-09-05 20:51] VITALS: BP 128/53; PULSE 89; RESP 15; TEMP 36.7; O2SAT 98
[2023-09-05] MEDS: iohexoL 350 MG/ML 100 ML INFUS..BTL 85 ML IV (21:36)
[2023-09-05] MEDS: Pantoprazole Sodium 40 MG/10 ML VIAL 80 MG IVPUSH (21:42)
[2023-09-05] MEDS: 0.9 % Sodium Chloride 500 ML 999 ML IV (21:43)
[2023-09-05 21:51] VITALS: BP 126/64; PULSE 84; RESP 13; TEMP 37
--- NOTE | 2023-09-05 21:59 | PC.NURSE ---
First unit of RBC's started. VSS Pt tolerating well. NSR on monitor HR 90. RR 12 o2 SAt 99% RA. Breaths are even regular and unlabored with equal chest rises. No apparent distress noted. Denies chest pain and sob. Monitoring is ongoing.
--- NOTE | 2023-09-05 22:08 | PC.NURSE ---
RBC's running at 75ml/hr as pt is at high risk for TACO
[2023-09-05 22:13] VITALS: BP 128/58; PULSE 86; RESP 16; TEMP 36.7
--- NOTE | 2023-09-05 22:14 | PC.NURSE ---
Pt aox4 resting at the bedside. VSS No apparent distress noted. Reports no chest pain or sob. No sign/symptoms of blood reaction noted. Pt advised to report any new sudden symptoms. Monitoring is ongoing.
[2023-09-05 22:56] VITALS: BP 111/57; PULSE 100; RESP 17; TEMP 37.2; O2SAT 99
[2023-09-05 22:56] LABS: INTERNATIONAL NORM RATIO 1.1 (0.9-1.1); Prothrombin Time 13.4 SEC (11.1-13.3)
[2023-09-05 22:59] LABS: Partial Thromboplastin Time 25.8 SEC (26.0-36.4)
[2023-09-05] MEDS: 0.9 % Sodium Chloride 1,000 ML 100 ML IVCONT (23:49)
[2023-09-06] VITALS (13 sets, daily range): BP systolic 113–159; BP diastolic 46–69; PULSE 78–94; RESP 12–20; TEMP 36.4–37.5; O2SAT 98–100; BMI 23.9
--- NOTE | 2023-09-06 00:12 | P.HPHOSP_ITS ---
History of Present Illness Date of Service: 09/05/23 Attending physician on admission: Sruthi Capps Chief Complaint: Dark stools Contreras Chapman is a 88 years old man with past medical history significant for events of GI bleeding, GERD, atrial fibrillation (Watchman device implant) - taking aspirin, essential hypertension and hyperlipidemia who presents to the emergency department complaining of having multiple episodes of dark stools. He does complain of generalized fatigue and dizziness. He denied any associated abdominal pain, nausea, vomiting or diarrhea. He denied any fever or chills. He stated that he had a surgical procedure to his left foot and was instructed by his orthopedic surgeon to take aspirin. He has been receiving treatment for a left 2nd digit hammertoe with terminal callus/ulcer. He denied any acute genitourinary symptom. In the ED, he was found to have stable vital signs. Blood workup is remarkable for hemoglobin of 5.7. BUN is elevated. Creatinine is normal. Stool for occult blood is positive. Abdominopelvic CT scan show no evidence of active extravasation. There is a prominent colonic diverticulosis without acute diverticulitis. ED tx: Protonix 80 mg IV x1. Two units of PRBC ordered. Review of Systems 2 Review of Systems: All 12 systems were reviewed and normal except as noted in HPI. [facility] Medical History Paroxysmal atrial fibrillation Erectile dysfunction Screening for colon cancer Essential hypertension Paroxysmal atrial flutter Insomnia Pyelonephritis Psoriasis Vitamin D deficiency Arthralgia Neuropathy GERD without esophagitis Gastrointestinal hemorrhage Anemia Pure hypercholesterolemia Benign essential hypertension Diabetes mellitus Atrial flutter Family History Father Pneumonia Mother Myocardial infarction Son No problems noted. Daughter No problems noted. Surgical History History of colonoscopy S/P ablation of atrial flutter History of inguinal hernia repair History of left hip replacement Social History Housing: House Alcohol intake: current Alcohol intake frequency: a few times a week Alcohol type: beer and hard liquor Patient Tobacco Use Status: Former Tobacco user Tobacco use type: Cigarette e-Cigarette/Vaping Use: Never Used Second Hand Smoke Exposure: Yes Use of substances other than those prescribed or required for medical reasons: No Advance Directives: Yes Advance Directives Information Provided: No Advance Directives on File: No Advance Directives Date on File: 08/26/00 Nutrition Risks: No Nutritional Risk service: Yes Current occupational status: retired Cognitive needs: No Hearing needs: Yes Vision needs: Yes Meds Allergies Allergy/AdvReac Type Severity Reaction Status Date / Time Penicillins Allergy Intermediate RASH/HIVES Verified 06/28/23 10:09 Sulfa (Sulfonamide Allergy Intermediate RASH/HIVES, Verified 06/28/23 10:09 Antibiotics) hives Active Medications: Current Medications Sodium Chloride (Ns) 1,000 mls @ 100 mls/hr IVCONT .Q10H GLENDY Last Admin: 09/05/23 23:49 Dose: 100 mls/hr Pantoprazole Sodium (Pantoprazole Sodium 40 Mg/10 Ml Vial) 40 mg IV Q12H GLENDY Sodium Chloride (0.9 % Sodium Chloride Flush 3 Ml Syringe) 3 ml IVFLUSH QSHIFT GLENDY Physical Exam 2 Vital Signs and Narrative: Vital Signs: Last Vital Signs Temp 98.9 F 09/05/23 22:56 Pulse 100 09/05/23 22:56 Resp 17 09/05/23 22:56 BP 111/57 L 09/05/23 22:56 Pulse Ox 99 09/05/23 22:56 O2 Del Method Room Air 09/05/23 22:56 BMI result Body Mass Index 23.9 Constitutional - Awake and Alert, No apparent distress HEENT: Atraumatic, normocephalic. Cardiovascular - Irregular rhythm. Normal rate. Respiratory - Normal lung expansion, Normal respiratory effort, No respiratory distress, CTA bilaterally Gastrointestinal - NT / ND; +BS; No rebound or guarding Extremities - Left foot with clean bandages. Musculoskeletal - Normal inspection, normal ROM Skin - Warm/Dry. Pallor. Neurological - Alert & oriented x3. Psychological - Appropriate affect. Results Labs 09/05/23 20:11 09/05/23 20:11 Labs: Laboratory Results - last 24 hr 09/05/23 09/05/23 09/05/23 20:00 20:11 22:43 MCV 112.3 H MCH 37.0 H MCHC 32.9 RDW 15.9 Plt Count 209 MPV 11.4 Absolute Nucleated RBC 0.040 H Nucleated RBC % (auto) 0.5 H PT 13.4 H INR 1.1 APTT 25.8 L Anion Gap 13 Estim Creat Clear Calc 51.1 Estimated GFR > 60 POC Glucose 195 H Random Glucose 189 H Calcium 8.4 D Total Bilirubin 0.8 AST 11 ALT 8 Alkaline Phosphatase 39 Total Protein 5.9 L Albumin 3.6 Stool Occult Blood POSITIVE Blood Type O Positive Antibody Screen NEGATIVE Crossmatch See Detail Imaging Radiologist's Impressions: Impressions Abdomen/Pelvis CT 09/05/23 21:41 IMPRESSION: 1. No evidence of active extravasation. 2. Prominent colonic diverticulosis without acute diverticulitis. 3. Prostate measures 5.3 cm. 4. Grade 1 retrolisthesis of L3 on L4. Grade 1 anterolisthesis of L4 and L5. Assessment and Plan (1) Acute blood loss anemia: Status: Acute (2) Acute upper GI bleed: Status: Acute Plan Contreras Chapman is a 88 years old man admitted with: * Symptomatic anemia secondary to gastrointestinal bleeding. Admit to hospitalist service. Keep NPO. Telemetry. Start therapy with Protonix 40 mg IV twice daily (bolus given in the ED). Hold aspirin. Gastroenterology consult for further recommendation and management -according to ED provider Dr. Montanez was contacted. We will continue to monitor hemoglobin and transfuse PRBCs as needed. * Atrial fibrillation, rate controlled. Status post watchman device implantation. * Type 2 diabetes mellitus. Blood glucose monitoring every 6 hours while NPO. Insulin sliding scale. * Essential hypertension. Blood pressure is currently in the low side. Will hold antihypertensive medications for now. We will continue to monitor blood pressure. * Hyperlipidemia. Continue statin when able. * VTE prophylaxis: Pharmacological VTE prophylaxis contraindicated due to active bleeding. We will apply SCDs. Code status: Full. Patient will require hospitalization for at least 2 midnight for GI bleeding treatment with blood transfusions, IV fluids and gastroenterology evaluation. Quality Stroke Does the patient have a stroke diagnosis?: No VTE Prior VTE?: No VTE Risk Level:: Medical - moderate - high VTE Device Contraindication: N/A - Device Ordered VTE Drug Contraindication: Treatment Not Indicated
[2023-09-06 00:50] LABS: Glucose, Whole Blood 146 mg/dL (60-115)
--- NOTE | 2023-09-06 00:57 | PC.NURSE ---
Pt sleeping at the bedside. No apparent distress noted. First unit of RBC's running @ 75 ml/hr. Pt tolerating well. Pending bed assignment. Monitoring is ongoing.
--- NOTE | 2023-09-06 01:00 | PC.NURSE ---
POC changed from every hour to ever six hours per Dr. Luz verbal order.
[2023-09-06] MEDS: 0.9 % Sodium Chloride Flush 3 ML SYRINGE IVFLUSH ×2 (01:03→07:25)
--- NOTE | 2023-09-06 01:50 | PC.NURSE ---
Second unit of RBC's started. Pt tolerating well.
--- NOTE | 2023-09-06 01:59 | PC.NURSE ---
First unit of RBC's completed with no complications or reactions. Pt tolerated well. Second unit of RBC's started. Monitoring at bedside.
[2023-09-06] MEDS: Pantoprazole Sodium 40 MG/10 ML VIAL IV ×2 (06:51→19:53)
[2023-09-06 06:56] LABS: Glucose, Whole Blood 135 mg/dL (60-115)
--- NOTE | 2023-09-06 07:02 | PC.NURSE ---
Report received from Madeline MOORE & care transferred at this time. POC: 135, strict NPO. Per overnight RN patient recieved 2u of PRBCS without complication. Pt currently resting comfortably, appears in NAD, VSS, RR even and unlabored bilaterally on RA. Awaiting IP room assignment. WCTA
[2023-09-06] MEDS: 0.9 % Sodium Chloride 1,000 ML 100 ML IVCONT ×2 (07:22→20:15)
--- NOTE | 2023-09-06 07:36 | P.CNGI_ITS ---
History of Present Illness Data of Consult Service Date: 09/06/23 Requesting physician: Grayson Sorenson Primary Care Provider: Leonard Ames MD HPI Reason for consult: GI bleeding 88 YM with hx GI bleeding, GERD, atrial fibrillation (Watchman device implant) - taking aspirin, essential hypertension and hyperlipidemia seen at [facility] on 09/05/23 with multiple episodes of dark stools. Pt complained of fatigue and dizziness and abdominal pain, nausea, vomiting or diarrhea, fever or chills. He stated that he had a surgical procedure to his left foot and was instructed by his orthopedic surgeon to take aspirin. He has been receiving treatment for a left 2nd digit hammertoe with terminal callus/ulcer. Pt also admits to taking advil prn. In the ED, patient was hemodynamically stable. Labs showed hemoglobin of 5.7. BUN is elevated. Creatinine is normal. Stool for occult blood is positive. ED tx: Protonix 80 mg IV x1. Two units of PRBC transfused overnight. Post transfusion H & H was 8.5 and 25.5 09/05/[address] SCAN SHOWED: 1. No evidence of active extravasation. 2. Prominent colonic diverticulosis without acute diverticulitis. 3. Prostate measures 5.3 cm. 4. Grade 1 retrolisthesis of L3 on L4. Grade 1 anterolisthesis of L4 and L5. PAST GI HISTORY BY REVIEW OF MEDICAL RECORDS: Pt has been hospitalized at [facility] in the past with rectal bleeding in 01/2017 Pt had a colonoscopy by Dr Faustin which showed ring-diverticulosis and a small tubular adenoma was removed from the ascending colon. 12/2010 Pt had an EGD and colonoscopy - EGD showed a small hiatal hernia and a non-obstructing Schatzki's ring and colonoscopy showed ring diverticulosis No clear source found for bleeding - attributed to diverticular bleed Review of Systems 2 Review of Systems: Yes all other systems are reviewed and are negative [facility] Past Medical History Medical History Paroxysmal atrial fibrillation Erectile dysfunction Screening for colon cancer Essential hypertension Paroxysmal atrial flutter Insomnia Pyelonephritis Psoriasis Vitamin D deficiency Arthralgia Neuropathy GERD without esophagitis Gastrointestinal hemorrhage Anemia Pure hypercholesterolemia Benign essential hypertension Diabetes mellitus Atrial flutter Family History Family History Father Pneumonia Mother Myocardial infarction Son No problems noted. Daughter No problems noted. Surgical History Surgical History History of colonoscopy S/P ablation of atrial flutter History of inguinal hernia repair History of left hip replacement Social History Social History Household Members: None Housing: House Alcohol intake: current Alcohol intake frequency: 0-2 drinks per day Alcohol type: beer and hard liquor Comment: low fall Patient Tobacco Use Status: Never used Tobacco Tobacco use type: Cigarette e-Cigarette/Vaping Use: Never Used Second Hand Smoke Exposure: Yes Advance Directives Date on File: 08/26/00 service: Yes Current occupational status: retired Cognitive needs: No Hearing needs: Yes Vision needs: Yes Meds Allergies Allergy/AdvReac Type Severity Reaction Status Date / Time Penicillins Allergy Intermediate RASH/HIVES Verified 09/09/23 13:33 Sulfa (Sulfonamide Allergy Intermediate RASH/HIVES, Verified 09/09/23 13:33 Antibiotics) hives Active Medications: Current Medications Albuterol Sulfate (Albuterol Sulfate 90 Mcg 8 Gm Inhaler) 2 puff INHALE QID PRN PRN Reason: shortness of breath or wheezing Amlodipine Besylate (Amlodipine Besylate 10 Mg Tablet) 10 mg PO DAILY [facility]; Protocol Dextrose (Dextrose 50 % 25 Gm/50 Ml Syringe) 25 gm IVPUSH Q15M PRN; Protocol PRN Reason: per Hypoglycemia Standing Ord. Glucose (Glucose Gel 15 Gm Gel..Gram.) 15 gm PO Q15M PRN; Protocol PRN Reason: per Hypoglycemia Standing Ord. Sodium Chloride (Ns) 1,000 mls @ 100 mls/hr IVCONT .Q10H [facility] Last Admin: 09/05/23 23:49 Dose: 100 mls/hr Insulin Human Lispro (Insulin Lispro 100 Unit/Ml 3 Ml Vial) 0 unit SUBCUT Q6H [facility]; Protocol Last Admin: 09/06/23 06:52 Dose: Not Given Lorazepam (Lorazepam 1 Mg Tablet) 1 mg PO TID PRN PRN Reason: anxiety Metoprolol Succinate (Metoprolol Succinate Er 50 Mg Tab.Er.24h) 50 mg PO DAILY [facility]; Protocol Non-Formulary Medication (Simvastatin) 20 mg PO QPM [facility] Pantoprazole Sodium (Pantoprazole Sodium 40 Mg/10 Ml Vial) 40 mg IV Q12H [facility] Last Admin: 09/06/23 06:51 Dose: 40 mg Sodium Chloride (0.9 % Sodium Chloride Flush 3 Ml Syringe) 3 ml IVFLUSH QSHIFT [facility] Last Admin: 09/06/23 07:25 Dose: 3 ml Valsartan (Valsartan 160 Mg Tablet) 160 mg PO DAILY [facility]; Protocol Zolpidem Tartrate (Zolpidem Tartrate 5 Mg Tablet) 10 mg PO BEDTIME PRN PRN Reason: insomnia Home Medications Medication Instructions Recorded Confirmed Last Taken Type acetaminophen 500 mg tablet 1,000 mg PO Q8H PRN pain 09/06/23 09/06/23 Unknown History amlodipine 10 mg tablet 10 mg PO DAILY 09/06/23 09/06/23 09/05/23 History multivitamin 1 tab PO DAILY 09/06/23 09/06/23 09/05/23 History omega 8-dwv-sdi-fish oil 300 1 cap PO DAILY 09/06/23 09/06/23 09/05/23 History mg-1,000 mg capsule,delayed release (Fish Oil) omeprazole 20 mg capsule,delayed 40 mg PO DAILY@0630 09/06/23 09/06/23 09/05/23 History release valsartan 160 mg tablet 160 mg PO DAILY 09/06/23 09/06/23 09/05/23 History Physical Exam 2 Vital Signs: Vital Signs: Last Vital Signs Temp 97.6 F 09/06/23 07:23 Pulse 79 09/06/23 07:23 Resp 13 09/06/23 07:23 BP 147/61 H 09/06/23 07:23 Pulse Ox 100 09/06/23 07:23 O2 Del Method Room Air 09/06/23 07:23 BMI result Body Mass Index 23.9 Const: Other: Appearance: Alert. Oriented X3. No acute distress. CVS: Normal heart rate and rhythm. Heart sound normal. No murmurs noted. Respiratory: No respiratory distress. No wheezes/rales/rhonchi noted. Abdomen: Soft and nontender, non-distended. Neuro: Oriented X 3. Left foot surgery wound d/c/i Psych: appropriate affect Results Labs 09/10/23 06:26 09/05/23 20:11 Labs: Short CBC 09/05/23 Range/Units 20:11 WBC 7.3 (4.8-10.8) X10*3/uL Hgb 5.7 L* D (14.0-18.0) g/dl Hct 17.3 L* D (42.0-52.0) % Plt Count 209 (160-400) X10*3/uL BMP 09/05/23 20:11 Sodium 136 Potassium 4.3 Chloride 106 Carbon Dioxide 21 L BUN 18 H Creatinine 1.07 Calcium 8.4 D Liver Function 09/05/23 Range/Units 20:11 Total Bilirubin 0.8 (0.0-1.0) mg/dL AST 11 (5-37) U/L ALT 8 (0-40) U/L Alkaline Phosphatase 39 (39-117) U/L Albumin 3.6 (3.5-5.0) g/dL Assessment and Plan (1) Acute upper GI bleed: Status: Resolved (2) Macrocytic anemia: Status: Acute (3) GERD without esophagitis: Status: Acute Plan 88 YM with hx GI bleeding, GERD, atrial fibrillation (Watchman device implant) - taking aspirin, essential hypertension and hyperlipidemia seen at [facility] on 09/05/23 with multiple episodes of dark stools. GI bleeding likely due to PUD, erosive esophagitis, MW tear or UGI AVMs. RECOMMENDATIONS: 1. Agree with Iv PPI 2. Proceed with upper endoscopy today for further evaluation of GI bleeding Procedures Date of Service Date of Service: 09/20/23
--- NOTE | 2023-09-06 08:00 | PHA.MEDREC ---
Pharmacy Consult ? Medication Reconciliation Pharmacy has completed the medication reconciliation.
--- NOTE | 2023-09-06 09:34 | P.PNIM_ITS ---
Subjective Subjective Date of Service: 09/06/23 <Hanane Morenoginny - Last Filed: 09/06/23 09:58> 09/06/23 <Grayson Sorenson MD - Last Filed: 09/06/23 12:09> Interval History: Patient report he is feeling well this morning. No SOB, dizziness/syncopy, CP, or abdominal pain. <Hanane Morenoginny - Last Filed: 09/06/23 09:58> Review of Systems As above. <Hanane Quiroga - Last Filed: 09/06/23 09:58> Review of Systems: Yes all other systems are reviewed and are negative <Hanane Quiroga - Last Filed: 09/06/23 09:58> Physical Exam 2 Vital Signs: Vital Signs: Last Vital Signs Temp 98.2 F 09/06/23 08:13 Pulse 84 09/06/23 08:13 Resp 13 09/06/23 08:13 BP 147/57 H 09/06/23 08:13 Pulse Ox 99 09/06/23 08:13 O2 Del Method Room Air 09/06/23 08:13 BMI result Body Mass Index 23.9 <Hanane Quiroga - Last Filed: 09/06/23 09:58> Const: Other: Appearance: Alert. Oriented X3. No acute distress. CVS: Normal heart rate and rhythm. Heart sound normal. No murmurs noted. Respiratory: No respiratory distress. No wheezes/rales/rhonchi noted. Abdomen: Soft and nontender, non-distended. Neuro: Oriented X 3. Psych: appropriate affect <Hanane Quiroga - Last Filed: 09/06/23 09:58> Other: Appearance: Alert. Oriented X3. No acute distress. CVS: Normal heart rate and rhythm. Heart sound normal. No murmurs noted. Respiratory: No respiratory distress. No wheezes/rales/rhonchi noted. Abdomen: Soft and nontender, non-distended. Neuro: Oriented X 3. Left foot surgery wound d/c/i Psych: appropriate affect <Graysno Sorenson MD - Last Filed: 09/06/23 12:09> Objective Data Active Medications Albuterol Sulfate (Albuterol Sulfate 90 Mcg 8 Gm Inhaler) 2 puff INHALE QID PRN PRN Reason: shortness of breath or wheezing Amlodipine Besylate (Amlodipine Besylate 10 Mg Tablet) 10 mg PO DAILY [facility]; Protocol Last Admin: 09/06/23 08:29 Dose: Not Given Documented By: DAMION Non-Admin Reason: NPO Atorvastatin Calcium (Atorvastatin Calcium 10 Mg Tablet) 10 mg PO DAILY [facility] Last Admin: 09/06/23 08:29 Dose: Not Given Documented By: DAMION Non-Admin Reason: NPO Dextrose (Dextrose 50 % 25 Gm/50 Ml Syringe) 25 gm IVPUSH Q15M PRN; Protocol PRN Reason: per Hypoglycemia Standing Ord. Glucose (Glucose Gel 15 Gm Gel..Gram.) 15 gm PO Q15M PRN; Protocol PRN Reason: per Hypoglycemia Standing Ord. Sodium Chloride (Ns) 1,000 mls @ 100 mls/hr IVCONT .Q10H [facility] Last Admin: 09/06/23 07:22 Dose: 100 mls/hr Documented By: DAMION Insulin Human Lispro (Insulin Lispro 100 Unit/Ml 3 Ml Vial) 0 unit SUBCUT Q6H [facility]; Protocol Last Admin: 09/06/23 06:52 Dose: Not Given Documented By: CHAYITO Non-Admin Reason: No Insulin Coverage Lorazepam (Lorazepam 1 Mg Tablet) 1 mg PO TID PRN PRN Reason: anxiety Metoprolol Succinate (Metoprolol Succinate Er 50 Mg Tab.Er.24h) 50 mg PO DAILY [facility]; Protocol Last Admin: 09/06/23 08:30 Dose: Not Given Documented By: DAMION Non-Admin Reason: NPO Pantoprazole Sodium (Pantoprazole Sodium 40 Mg/10 Ml Vial) 40 mg IV Q12H [facility] Last Admin: 09/06/23 06:51 Dose: 40 mg Documented By: CHAYITO Sodium Chloride (0.9 % Sodium Chloride Flush 3 Ml Syringe) 3 ml IVFLUSH QSHIFT [facility] Last Admin: 09/06/23 07:25 Dose: 3 ml Documented By: DAMION Valsartan (Valsartan 160 Mg Tablet) 160 mg PO DAILY [facility]; Protocol Last Admin: 09/06/23 08:30 Dose: Not Given Documented By: DAMION Non-Admin Reason: NPO Zolpidem Tartrate (Zolpidem Tartrate 5 Mg Tablet) 10 mg PO BEDTIME PRN PRN Reason: insomnia <Hanane Quiroga - Last Filed: 09/06/23 09:58> Labs CBC & Chem 7: 09/05/23 20:11 09/05/23 20:11 <Hanane Quiroga - Last Filed: 09/06/23 09:58> Labs: Laboratory Results - last 24 hr 09/05/23 09/05/23 09/05/23 20:00 20:11 22:43 MCV 112.3 H MCH 37.0 H MCHC 32.9 RDW 15.9 Plt Count 209 MPV 11.4 Absolute Nucleated RBC 0.040 H Nucleated RBC % (auto) 0.5 H PT 13.4 H INR 1.1 APTT 25.8 L Anion Gap 13 Estim Creat Clear Calc 51.1 Estimated GFR > 60 POC Glucose 195 H Random Glucose 189 H Calcium 8.4 D Total Bilirubin 0.8 AST 11 ALT 8 Alkaline Phosphatase 39 Total Protein 5.9 L Albumin 3.6 Stool Occult Blood POSITIVE Blood Type O Positive Antibody Screen NEGATIVE Crossmatch See Detail 09/06/23 09/06/23 00:45 06:48 MCV MCH MCHC RDW Plt Count MPV Absolute Nucleated RBC Nucleated RBC % (auto) PT INR APTT Anion Gap Estim Creat Clear Calc Estimated GFR POC Glucose 146 H 135 H Random Glucose Calcium Total Bilirubin AST ALT Alkaline Phosphatase Total Protein Albumin Stool Occult Blood Blood Type Antibody Screen Crossmatch <Hanane Quiroga - Last Filed: 09/06/23 09:58> Assessment and Plan (1) Acute upper GI bleed: Status: Acute <Hanane Quiroga - Last Filed: 09/06/23 09:58> (2) Acute blood loss anemia: Status: Acute <Hanane Quiroga - Last Filed: 09/06/23 09:58> Assessment and Plan: Contreras is a 88 yo M with past medical history of GI bleeding, GERD, atrial fibrillation (Watchman device implant), S/P left foot surgery - taking aspirin, essential hypertension, DMII, and hyperlipidemia who was admitted after complaining of dark stools and was anemic with an H/H of 5.7/17.3. Acute upper GI bleed -- Keep NPO, continue Protonix 40mg BID, hold aspirin. Consult GI (Dr. Montanez). Acute blood loss anemia -- Repeat CBC; transfuse PRBC as needed. Atrial fibrillation s/p watman device implantation -- continue amlodipine, metoprolol. Rate controlled. DM type II -- Continue sitagliptin, SSI, and repeat blood glucose q6HR while patient is NPO HTN -- Continue valsartan HLD --continue simvastatin DVT prophylaxis -- Anticoagulation contraindicated secondary to upper GI bleed. Apply SCDs. <Hanane Quiroga - Last Filed: 09/06/23 09:58> Contreras is a 88 yo M with past medical history of GI bleeding, GERD, atrial fibrillation (Watchman device implant), S/P left foot surgery - taking aspirin, essential hypertension, DMII, and hyperlipidemia who was admitted after complaining of dark stools and was anemic with an H/H of 5.7/17.3. Acute upper GI bleed -- Keep NPO, continue Protonix 40mg BID, hold aspirin. Consult GI (Dr. Montanez). Acute blood loss anemia -- Repeat CBC; transfuse PRBC as needed. Permanent Atrial fibrillation s/p watchman device implantation -- continue amlodipine, metoprolol. Rate controlled. DM type II -- hold sitagliptin, SSI, and repeat blood glucose q6HR he's NPO HTN -- Continue valsartan HLD --continue simvastatin DVT prophylaxis -- Anticoagulation contraindicated secondary to upper GI bleed. Apply SCDs. Full code <Grayson Sorenson MD - Last Filed: 09/06/23 12:09> Quality Stroke Does the patient have a stroke diagnosis?: No <Hanane Quiroga - Last Filed: 09/06/23 09:58> VTE Prior VTE?: No <Hanane Quiroga - Last Filed: 09/06/23 09:58> VTE Risk Level:: Medical - moderate - high <Hanane Quiroga - Last Filed: 09/06/23 09:58> VTE Device Contraindication: N/A - Device Ordered <Hanane Quiroga - Last Filed: 09/06/23 09:58> VTE Drug Contraindication: Treatment Not Indicated <Hanane Quiroga - Last Filed: 09/06/23 09:58>
--- NOTE | 2023-09-06 11:07 | MHC.EDTECH ---
pt was found incontinent of urine, pt was cleaned, linen changed, pt transferred from bed to recliner, call rizzo and belongings withing reach.
[2023-09-06 12:41] LABS: Glucose, Whole Blood 124 mg/dL (60-115)
[2023-09-06 13:30] LABS: Hematocrit 25.5 % (42.0-52.0); Hemoglobin 8.5 g/dl (14.0-18.0); Mean Corpuscular HGB Conc 33.3 g/dl (31.0-36.0); Mean Corpuscular Hemoglobin 34.4 pg (27.0-33.0); Mean Corpuscular Volume 103.2 fL (80.0-98.0); Mean Platelet Volume 11.5 fL (9.4-12.4); NRBC Pct Auto 0.6 /100WBC (0.0-0.2); Platelet Count 191 X10*3/uL (160-400); Red Blood Count 2.47 X10*6/uL (4.60-5.80); Red Cell Distribution Width 18.7 % (11.0-16.0); White Blood Count 7.2 X10*3/uL (4.8-10.8)
[2023-09-06 16:37] LABS: Glucose, Whole Blood 123 mg/dL (60-115)
--- NOTE | 2023-09-06 18:29 | HO.ANESPROP2 ---
HPI - Anesthesia Eval Consult details Narrative: GI bleeding PMFSH Active Problems Active Problems: All Active Problems (Updated 09/05/23 @ 22:20 by Noemy Cao MD) Acute blood loss anemia (Acute) Acute upper GI bleed (Acute) Pain of right sacroiliac joint (Acute) Macrocytic anemia (Acute) Colonoscopy refused (Acute) Ulcer of left foot (Acute) Serum total bilirubin elevated (Acute) Abdominal pain (Acute) PAC (premature atrial contraction) (Acute) Paroxysmal atrial fibrillation (Acute) Erectile dysfunction (Acute) Medicare annual wellness visit, subsequent (Acute) PAC (premature atrial contraction) (Acute) Left flank pain (Acute) Bacteriuria with pyuria (Acute) 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) Adult general medical exam (Acute) Bronchitis (Acute) Hemorrhage of gastrointestinal tract, unspecified (Acute) Essential hypertension (Acute) Paroxysmal atrial flutter (Acute) Insomnia (Acute) Pyelonephritis (Acute) Psoriasis (Acute) Vitamin D deficiency (Acute) Arthralgia (Acute) Neuropathy (Acute) GERD without esophagitis (Acute) Gastrointestinal hemorrhage (Acute) Anemia (Acute) Pure hypercholesterolemia (Acute) Benign essential hypertension (Acute) Diabetes mellitus (Acute) Atrial flutter (Acute) Past Medical History Medical History Paroxysmal atrial fibrillation Erectile dysfunction Screening for colon cancer Essential hypertension Paroxysmal atrial flutter Insomnia Pyelonephritis Psoriasis Vitamin D deficiency Arthralgia Neuropathy GERD without esophagitis Gastrointestinal hemorrhage Anemia Pure hypercholesterolemia Benign essential hypertension Diabetes mellitus Atrial flutter Family History Family History Father Pneumonia Mother Myocardial infarction Son No problems noted. Daughter No problems noted. Family history of problems with anesthesia: No Surgical History Surgical History History of colonoscopy S/P ablation of atrial flutter History of inguinal hernia repair History of left hip replacement History of Problems with Anesthesia: No Social History Social History Household Members: None Housing: House Alcohol intake: current Alcohol intake frequency: 0-2 drinks per day Alcohol type: beer and hard liquor Patient Tobacco Use Status: Never used Tobacco Tobacco use type: Cigarette e-Cigarette/Vaping Use: Never Used Second Hand Smoke Exposure: Yes Advance Directives Date on File: 08/26/00 service: Yes Current occupational status: retired Cognitive needs: No Hearing needs: Yes Vision needs: Yes Meds Allergies Allergy/AdvReac Type Severity Reaction Status Date / Time Penicillins Allergy Intermediate RASH/HIVES Verified 06/28/23 10:09 Sulfa (Sulfonamide Allergy Intermediate RASH/HIVES, Verified 06/28/23 10:09 Antibiotics) hives Active Medications: Current Medications Albuterol Sulfate (Albuterol Sulfate 90 Mcg 8 Gm Inhaler) 2 puff INHALE QID PRN PRN Reason: shortness of breath or wheezing Amlodipine Besylate (Amlodipine Besylate 10 Mg Tablet) 10 mg PO DAILY [facility]; Protocol Last Admin: 09/06/23 08:29 Dose: Not Given Atorvastatin Calcium (Atorvastatin Calcium 10 Mg Tablet) 10 mg PO DAILY [facility] Last Admin: 09/06/23 08:29 Dose: Not Given Dextrose (Dextrose 50 % 25 Gm/50 Ml Syringe) 25 gm IVPUSH Q15M PRN; Protocol PRN Reason: per Hypoglycemia Standing Ord. Glucose (Glucose Gel 15 Gm Gel..Gram.) 15 gm PO Q15M PRN; Protocol PRN Reason: per Hypoglycemia Standing Ord. Sodium Chloride (Ns) 1,000 mls @ 100 mls/hr IVCONT .Q10H [facility] Last Infusion: 09/06/23 16:08 Dose: 0 mls/hr Insulin Human Lispro (Insulin Lispro 100 Unit/Ml 3 Ml Vial) 0 unit SUBCUT Q6H [facility]; Protocol Last Admin: 09/06/23 12:02 Dose: Not Given Lorazepam (Lorazepam 1 Mg Tablet) 1 mg PO TID PRN PRN Reason: anxiety Metoprolol Succinate (Metoprolol Succinate Er 50 Mg Tab.Er.24h) 50 mg PO DAILY [facility]; Protocol Last Admin: 09/06/23 08:30 Dose: Not Given Multivitamins/Vitamin C (Multivitamin Tablet) 1 tab PO DAILY [facility] Omeprazole (Omeprazole 40 Mg Capsule.Dr) 40 mg PO DAILY@0630 [facility] Pantoprazole Sodium (Pantoprazole Sodium 40 Mg/10 Ml Vial) 40 mg IV Q12H [facility] Last Admin: 09/06/23 06:51 Dose: 40 mg Sodium Chloride (0.9 % Sodium Chloride Flush 3 Ml Syringe) 3 ml IVFLUSH QSHIFT [facility] Last Admin: 09/06/23 17:08 Dose: Not Given Valsartan (Valsartan 160 Mg Tablet) 160 mg PO DAILY [facility]; Protocol Last Admin: 09/06/23 08:30 Dose: Not Given Zolpidem Tartrate (Zolpidem Tartrate 5 Mg Tablet) 10 mg PO BEDTIME PRN PRN Reason: insomnia Home Medications Medication Instructions Recorded Confirmed Last Taken Type acetaminophen 500 mg tablet 1,000 mg PO Q8H PRN pain 09/06/23 09/06/23 Unknown History amlodipine 10 mg tablet 10 mg PO DAILY 09/06/23 09/06/23 09/05/23 History multivitamin 1 tab PO DAILY 09/06/23 09/06/23 09/05/23 History omega 2-wme-azn-fish oil 300 1 cap PO DAILY 09/06/23 09/06/23 09/05/23 History mg-1,000 mg capsule,delayed release (Fish Oil) omeprazole 20 mg capsule,delayed 40 mg PO DAILY@0630 09/06/23 09/06/23 09/05/23 History release sitagliptin phosphate 100 mg 100 mg PO DAILY 09/06/23 09/06/23 09/05/23 History tablet (Januvia) valsartan 160 mg tablet 160 mg PO DAILY 09/06/23 09/06/23 09/05/23 History Exam Height,Weight and Vital Signs: Height 5 ft 10 in Weight 75.6 kg Last Vital Signs Temp 99 F 09/06/23 16:30 Pulse 85 09/06/23 16:30 Resp 16 09/06/23 16:30 BP 158/59 H 09/06/23 16:30 Pulse Ox 100 09/06/23 16:30 O2 Del Method Room Air 09/06/23 16:30 Pertinent Lab Results Pertinent Lab Results: Laboratory Tests 09/05/23 09/05/23 09/05/23 20:00 20:11 22:43 WBC 7.3 RBC 1.54 L D Hgb 5.7 L* D Hct 17.3 L* D MCV 112.3 H MCH 37.0 H MCHC 32.9 RDW 15.9 Plt Count 209 MPV 11.4 Absolute Nucleated RBC 0.040 H Nucleated RBC % (auto) 0.5 H Smear Path Review PT 13.4 H INR 1.1 APTT 25.8 L Sodium 136 Potassium 4.3 Chloride 106 Carbon Dioxide 21 L Anion Gap 13 BUN 18 H Creatinine 1.07 Estim Creat Clear Calc 51.1 Estimated GFR > 60 POC Glucose 195 H Random Glucose 189 H Calcium 8.4 D Total Bilirubin 0.8 AST 11 ALT 8 Alkaline Phosphatase 39 Total Protein 5.9 L Albumin 3.6 Stool Occult Blood POSITIVE Blood Type O Positive Antibody Screen NEGATIVE Crossmatch See Detail 09/06/23 09/06/23 09/06/23 00:45 06:48 12:37 WBC RBC Hgb Hct MCV MCH MCHC RDW Plt Count MPV Absolute Nucleated RBC Nucleated RBC % (auto) Smear Path Review PT INR APTT Sodium Potassium Chloride Carbon Dioxide Anion Gap BUN Creatinine Estim Creat Clear Calc Estimated GFR POC Glucose 146 H 135 H 124 H Random Glucose Calcium Total Bilirubin AST ALT Alkaline Phosphatase Total Protein Albumin Stool Occult Blood Blood Type Antibody Screen Crossmatch 09/06/23 09/06/23 13:11 16:32 WBC 7.2 RBC 2.47 L D Hgb 8.5 L D Hct 25.5 L D MCV 103.2 H D MCH 34.4 H MCHC 33.3 RDW 18.7 H Plt Count 191 MPV 11.5 Absolute Nucleated RBC 0.040 H Nucleated RBC % (auto) 0.6 H Smear Path Review PT INR APTT Sodium Potassium Chloride Carbon Dioxide Anion Gap BUN Creatinine Estim Creat Clear Calc Estimated GFR POC Glucose 123 H Random Glucose Calcium Total Bilirubin AST ALT Alkaline Phosphatase Total Protein Albumin Stool Occult Blood Blood Type Antibody Screen Crossmatch Airway Mallampati Class: II TM Dist: >3cm Neck ROM: Full Loose/Missing/Broken Teeth: No Heart: RRR Lungs: CTA Assessment and Plan Assessment Anesthesia Assessment: Anesthesia Plan Discussed and Chart Reviewed Final Anesthetic Review Family History of Problems with Anesthesia: No History of Problems with Anesthesia: No NPO: Yes ASA Class: III Final Preanesthetic Review: No Changes in Pt Med Stat, Meds/Allgs Chart Reviewed, Consent Obtained/Reviewed and Anes Risks/Benef Reviewed Patient Risk: High Procedure Risk: Low Anesthetic Plan Anesthetic Plan: TIVA Disposition: Standard PACU
--- NOTE | 2023-09-06 18:57 | W.PM.OPN ---
Operative Note Operative Note Date of Service: 09/06/23 Narrative: FLEXIBLE TRANSORAL UPPER GASTROINTESTINAL ENDOSCOPY WITH BIOPSIES Pre-op diagnosis: GI bleeding, anemia Post-op diagnosis: Gastritis, multiple gastric polyps, large duodenal diverticulum Endoscopist:? Liz Montanez MD Anesthesia:?MAC Consent: Indications for the procedure and potential complications of bleeding, perforation, reaction to medications and missed diagnosis were discussed with the patient and informed consent was obtained. Instrument: Olympus GIF H 190 mid size upper endoscope Monitoring: Vital signs and clinical assessment, continuous EKG monitoring, Pulse oximetry, Carbon Dioxide monitoring and blood pressure monitoring were done throughout the procedure. Procedure: The patient was placed in the left lateral decubitis position and pre-procedure medications were administered and a bite block was placed. The endoscope was inserted into the mouth and advanced under direct vision to the third part of duodenum. A careful inspection was made as the upper endoscope was withdrawn including a retroflexed examination of the proximal stomach; Findings and interventions are described below. Findings: Larynx: Normal Esophagus: GE junction at 40 cms. No esophagitis or Poole's. Stomach: Multiple 5 to 10 mm benign appearing polyps in the body and fundus - biopsied. Mild gastric erythema. Biopsies were obtained. Grade 2 flap valve on retroflexed examination of the cardia. Duodenum: Normal bulb and a large diverticulum in the medial wall of proximal descending duodenum (containing yellow bile and undigested food) Intervention: Biopsies as noted above Impression and Post Procedure Diagnosis: Endoscopy Findings: STOMACH: Gastritis and multiple gastric polyps DUODENUM: A large diverticulum in the medial wall of proximal descending duodenum (containing yellow bile and undigested food) No blood or portential bleeding source found in the upper GI tract during EGD. GI bleeding is likely from a lower GI or small bowel etiology. Plan: Follow CBC daily and monitor for bleeding. If patient has recurrent brisk bleeding, obtain a CT angiogram. Can give Golytely prep on Saturday for colonoscopy on 09/09/23
[2023-09-06 22:46] LABS: Glucose, Whole Blood 131 mg/dL (60-115)
[2023-09-07] VITALS (11 sets, daily range): BP systolic 133–168; BP diastolic 7–77; PULSE 75–105; RESP 16–20; TEMP 35.9–37.1; O2SAT 97–98
[2023-09-07] MEDS: Zolpidem Tartrate 5 MG TABLET 10 MG PO (00:35)
[2023-09-07 00:45] LABS: Glucose, Whole Blood 142 mg/dL (60-115)
[2023-09-07 06:18] LABS: Glucose, Whole Blood 107 mg/dL (60-115)
[2023-09-07] MEDS: Pantoprazole Sodium 40 MG/10 ML VIAL IV ×2 (06:47→17:19)
[2023-09-07] MEDS: Omeprazole 40 MG CAPSULE.DR PO (06:48)
[2023-09-07] MEDS: 0.9 % Sodium Chloride 1,000 ML 100 ML IVCONT (06:48)
[2023-09-07 07:45] LABS: Glucose, Whole Blood 120 mg/dL (60-115)
[2023-09-07 08:30] LABS: Hematocrit 21.5 % (42.0-52.0); Hemoglobin 7.3 g/dl (14.0-18.0)
[2023-09-07] MEDS: amLODIPine Besylate 10 MG TABLET PO (08:58)
[2023-09-07] MEDS: Valsartan 160 MG TABLET PO (08:58)
[2023-09-07] MEDS: Atorvastatin Calcium 10 MG TABLET PO (08:58)
[2023-09-07] MEDS: Multivitamin TABLET 1 TAB PO (08:58)
[2023-09-07] MEDS: Metoprolol Succinate ER 50 MG TAB.ER.24H PO (08:58)
[2023-09-07 11:11] LABS: Hemoglobin 6.8 g/dl (14.0-18.0)
[2023-09-07 12:11] LABS: Glucose, Whole Blood 115 mg/dL (60-115)
--- NOTE | 2023-09-07 13:54 | HO.PM.IMPN ---
Subjective Subjective Date of Service: 09/07/23 Interval History: Gi bleed Review of Systems initially came with h/h 5.7/17.3 then got 2 prbc went up to 8.5 yesterday then trending down slowly to 6.8. patient says he had small bm this afternoon blackish stool,no gross blood no abd pain or n/v or chest pain or sob or dizziness Physical Exam Vital Signs: Vital Signs: Last Vital Signs Temp 98.4 F 09/07/23 13:10 Pulse 77 09/07/23 13:10 Resp 18 09/07/23 13:10 BP 152/67 H 09/07/23 13:10 Pulse Ox 98 09/07/23 07:07 O2 Del Method Room Air 09/07/23 07:07 BMI result Body Mass Index 23.9 Appearance: Alert.? Oriented X3.? cvs: rrr, [id number] , no murmur res: clear to auscultation ,no rhonchii or wheezing abd: no rebound or guarding ,nt, bs present. ext pulses present , no cyanosis. neuro: axo3 , nonfocal. Objective Data Active Medications Albuterol Sulfate (Albuterol Sulfate 90 Mcg 8 Gm Inhaler) 2 puff INHALE QID PRN PRN Reason: shortness of breath or wheezing Amlodipine Besylate (Amlodipine Besylate 10 Mg Tablet) 10 mg PO DAILY [facility]; Protocol Last Admin: 09/07/23 08:58 Dose: 10 mg Documented By: LILLY Atorvastatin Calcium (Atorvastatin Calcium 10 Mg Tablet) 10 mg PO DAILY [facility] Last Admin: 09/07/23 08:58 Dose: 10 mg Documented By: LILLY Dextrose (Dextrose 50 % 25 Gm/50 Ml Syringe) 25 gm IVPUSH Q15M PRN; Protocol PRN Reason: per Hypoglycemia Standing Ord. Fentanyl (Fentanyl Citrate/Pf 100 Mcg/2 Ml Vial) 25 mcg IVPUSH Q5M PRN; Protocol PRN Reason: Pain, Moderate(Pain Scale 4-6) Glucose (Glucose Gel 15 Gm Gel..Gram.) 15 gm PO Q15M PRN; Protocol PRN Reason: per Hypoglycemia Standing Ord. Insulin Human Lispro (Insulin Lispro 100 Unit/Ml 3 Ml Vial) 0 unit SUBCUT Q6H [facility]; Protocol Last Admin: 09/07/23 12:12 Dose: Not Given Documented By: LILLY Non-Admin Reason: No Insulin Coverage Lorazepam (Lorazepam 1 Mg Tablet) 1 mg PO TID PRN PRN Reason: anxiety Metoprolol Succinate (Metoprolol Succinate Er 50 Mg Tab.Er.24h) 50 mg PO DAILY [facility]; Protocol Last Admin: 09/07/23 08:58 Dose: 50 mg Documented By: LILLY Multivitamins/Vitamin C (Multivitamin Tablet) 1 tab PO DAILY [facility] Last Admin: 09/07/23 08:58 Dose: 1 tab Documented By: LILLY Omeprazole (Omeprazole 40 Mg Capsule.Dr) 40 mg PO DAILY@0630 [facility] Last Admin: 09/07/23 06:48 Dose: 40 mg Documented By: RED Ondansetron HCl (Ondansetron Hcl 4 Mg/2 Ml Vial) 4 mg IVPUSH ONCE PRN PRN Reason: Nausea and Vomiting Pantoprazole Sodium (Pantoprazole Sodium 40 Mg/10 Ml Vial) 40 mg IV Q12H [facility] Last Admin: 09/07/23 06:47 Dose: 40 mg Documented By: RED Sodium Chloride (0.9 % Sodium Chloride Flush 3 Ml Syringe) 3 ml IVFLUSH QSHIFT [facility] Last Admin: 09/07/23 08:59 Dose: Not Given Documented By: LILLY Non-Admin Reason: IV Running Valsartan (Valsartan 160 Mg Tablet) 160 mg PO DAILY [facility]; Protocol Last Admin: 09/07/23 08:58 Dose: 160 mg Documented By: LILLY Zolpidem Tartrate (Zolpidem Tartrate 5 Mg Tablet) 10 mg PO BEDTIME PRN PRN Reason: insomnia Last Admin: 09/07/23 00:35 Dose: 10 mg Documented By: RED Labs 09/07/23 10:49 09/05/23 20:11 Labs: Laboratory Results - last 24 hr 09/05/23 09/06/23 09/06/23 20:11 16:32 20:36 Smear Path Review POC Glucose 123 H 131 H Blood Type O Positive Antibody Screen NEGATIVE Crossmatch See Detail 09/07/23 09/07/23 09/07/23 00:40 06:14 07:11 Smear Path Review POC Glucose 142 H 107 120 H Blood Type Antibody Screen Crossmatch 09/07/23 11:52 Smear Path Review POC Glucose 115 Blood Type Antibody Screen Crossmatch Assessment and Plan (1) Acute blood loss anemia: Status: Acute Plan 88 yo M with past medical history of GI bleeding, GERD, atrial fibrillation (Watchman device implant), S/P left foot surgery - taking aspirin, essential hypertension, DMII, and hyperlipidemia who was admitted after complaining of dark stools and was anemic with an H/H of 5.7/17.3. acute blood loss anemia sec GI bleed (unclear etiology)- h/h pf 5.7/17.3 then got 2 prbc went up to 8.5 yesterday then trending down slowly to 6.8. s/p egd yesterday:Gastritis and multiple gastric polyps vitals stable ,no new symproms ,1 bm -blackish, no gross bleeding d/w GI: recomended 1 prbc transfusion and repeat h/h 2 hour afterwards ,continue Protonix 40mg BID, hold aspirin. scheduled colonoscopy on 09/09/23. if further gross bleeding -we will aneesh back GI. Acute blood loss anemia -- Repeat CBC; transfuse PRBC as needed. Atrial fibrillation s/p watman device implantation -- continue amlodipine, metoprolol. Rate controlled. DM type II -- Continue sitagliptin, SSI, and repeat blood glucose q6HR while patient is NPO HTN -- Continue valsartan HLD --continue simvastatin DVT prophylaxis -- Anticoagulation contraindicated secondary to upper GI bleed. Apply SCDs. inpatient need :acute blood loss anemia sec GI bleed- need prbc transfusion ,h/h monitering ,also need Gi workup and interventions depending upon clinical course. patient and family updated in detail . Quality Stroke Does the patient have a stroke diagnosis?: No VTE Prior VTE?: No VTE Risk Level:: Medical - moderate - high VTE Device Contraindication: N/A - Device Ordered VTE Drug Contraindication: Treatment Not Indicated
--- NOTE | 2023-09-07 13:55 | MHC.CM.PN ---
IMM 09/07/23, Pt lives alone, he does not have home health services or medical equipment, he has not used [facility] or been to [facility] before. He has HCP and he said that it is on file with his PCP: Dr. Vivas. He is a and uses [place] [facility] for podiatry and eye drops. He is able to get a ride home upon DC. CM to follow and assist with DC planning.
[2023-09-07] MEDS: Furosemide 20 MG/2 ML VIAL IVPUSH (17:19)
[2023-09-07 17:26] LABS: Hematocrit 22.7 % (42.0-52.0); Hemoglobin 7.9 g/dl (14.0-18.0); Mean Corpuscular HGB Conc 34.8 g/dl (31.0-36.0); Mean Corpuscular Volume 100.4 fL (80.0-98.0); Mean Platelet Volume 10.9 fL (9.4-12.4); NRBC Pct Auto 0.4 /100WBC (0.0-0.2); Platelet Count 194 X10*3/uL (160-400); Red Blood Count 2.26 X10*6/uL (4.60-5.80); Red Cell Distribution Width 18.1 % (11.0-16.0); White Blood Count 7.2 X10*3/uL (4.8-10.8)
[2023-09-07 17:38] LABS: Glucose, Whole Blood 136 mg/dL (60-115)
--- NOTE | 2023-09-07 18:22 | HO.POSTANES ---
Post Anesthesia Evaluation Post Anesthesia Evaluation Date of Service: 09/07/23 Vital Signs: Vital Signs Temp Pulse Resp BP Pulse Ox O2 Del Method 09/07/23 17:46 98.5 F 78 20 151/70 H 09/07/23 17:31 98.7 F 76 20 161/7 H 09/07/23 16:52 98.7 F 76 20 161/71 H 09/07/23 15:43 96.7 F L 76 18 168/77 H 97 Room Air 09/07/23 13:10 98.4 F 77 18 152/67 H 09/07/23 12:54 98.1 F 77 20 137/63 09/07/23 07:07 98.1 F 105 H 18 159/70 H 98 Room Air Anesthesia: TIVA Mental Status: Awake Pain Control: Satisfactory Nausea/Vomiting: None Hydration: Adequate Anesthesia-Related Issues: No Anes. Related Issues
[2023-09-07 21:19] LABS: Glucose, Whole Blood 135 mg/dL (60-115)
[2023-09-07 21:35] LABS: Hematocrit 26.5 % (42.0-52.0); Hemoglobin 9.1 g/dl (14.0-18.0); Mean Corpuscular HGB Conc 34.3 g/dl (31.0-36.0); Mean Corpuscular Hemoglobin 33.8 pg (27.0-33.0); Mean Corpuscular Volume 98.5 fL (80.0-98.0); Mean Platelet Volume 10.9 fL (9.4-12.4); NRBC Pct Auto 0.2 /100WBC (0.0-0.2); Platelet Count 208 X10*3/uL (160-400); Red Blood Count 2.69 X10*6/uL (4.60-5.80); Red Cell Distribution Width 18.8 % (11.0-16.0)
[2023-09-07 23:48] LABS: Glucose, Whole Blood 129 mg/dL (60-115)
[2023-09-08 03:13] VITALS: BP 159/84; PULSE 76; RESP 20; TEMP 37.2; O2SAT 99
[2023-09-08] MEDS: Omeprazole 40 MG CAPSULE.DR PO (05:18)
[2023-09-08] MEDS: Pantoprazole Sodium 40 MG/10 ML VIAL IV ×2 (05:18→16:31)
[2023-09-08 06:29] LABS: Glucose, Whole Blood 102 mg/dL (60-115)
[2023-09-08 07:05] VITALS: BP 162/72; PULSE 75; RESP 16; TEMP 36.7; O2SAT 98
[2023-09-08 07:45] LABS: Hematocrit 26.1 % (42.0-52.0); Hemoglobin 8.9 g/dl (14.0-18.0); Mean Corpuscular HGB Conc 34.1 g/dl (31.0-36.0); Mean Corpuscular Hemoglobin 33.3 pg (27.0-33.0); Mean Corpuscular Volume 97.8 fL (80.0-98.0); Mean Platelet Volume 10.9 fL (9.4-12.4); Platelet Count 208 X10*3/uL (160-400); Red Blood Count 2.67 X10*6/uL (4.60-5.80); Red Cell Distribution Width 18.5 % (11.0-16.0); White Blood Count 5.4 X10*3/uL (4.8-10.8)
[2023-09-08] MEDS: Atorvastatin Calcium 10 MG TABLET PO (08:08)
[2023-09-08] MEDS: 0.9 % Sodium Chloride Flush 3 ML SYRINGE IVFLUSH ×2 (08:08→16:31)
[2023-09-08] MEDS: Metoprolol Succinate ER 50 MG TAB.ER.24H PO (08:08)
[2023-09-08] MEDS: amLODIPine Besylate 10 MG TABLET PO (08:08)
[2023-09-08] MEDS: Valsartan 160 MG TABLET PO (08:08)
[2023-09-08] MEDS: Multivitamin TABLET 1 TAB PO (08:08)
[2023-09-08 11:50] LABS: Glucose, Whole Blood 164 mg/dL (60-115)
[2023-09-08 12:00] VITALS: BP 159/72; PULSE 78; RESP 97; TEMP 36.8; O2SAT 96
[2023-09-08] MEDS: Insulin Lispro 100 UNIT/ML 3 ML VIAL SUBCUT (12:52)
[2023-09-08 14:52] VITALS: BP 119/56; PULSE 87; RESP 20; TEMP 36.8; O2SAT 97
--- NOTE | 2023-09-08 15:42 | P.PNIM_ITS ---
Subjective Subjective Date of Service: 09/08/23 Interval History: Gi bleed Review of Systems denies any jayson bleeding episode overnight. Had black stool as per the patient NoNausea or vomiting o or abdominal pain Physical Exam 2 Vital Signs: Vital Signs: Last Vital Signs Temp 98.2 F 09/08/23 14:52 Pulse 87 09/08/23 14:52 Resp 20 09/08/23 14:52 BP 119/56 L 09/08/23 14:52 Pulse Ox 97 09/08/23 14:52 O2 Del Method Room Air 09/08/23 14:52 BMI result Body Mass Index 23.9 Appearance: Alert.? Oriented X3.? cvs: rrr, [id number] . res: clear to auscultation ,no rhonchii or wheezing abd: no rebound or guarding ,nt, bs present. ext pulses present , no cyanosis. neuro: axo3 , nonfocal Objective Data Active Medications Acetaminophen (Acetaminophen 325 Mg Tablet) 650 mg PO Q6H PRN PRN Reason: Pain, Mild (Pain Scale 1-3) Albuterol Sulfate (Albuterol Sulfate 90 Mcg 8 Gm Inhaler) 2 puff INHALE QID PRN PRN Reason: shortness of breath or wheezing Amlodipine Besylate (Amlodipine Besylate 10 Mg Tablet) 10 mg PO DAILY [facility]; Protocol Last Admin: 09/08/23 08:08 Dose: 10 mg Documented By: LILLY Atorvastatin Calcium (Atorvastatin Calcium 10 Mg Tablet) 10 mg PO DAILY [facility] Last Admin: 09/08/23 08:08 Dose: 10 mg Documented By: LILLY Dextrose (Dextrose 50 % 25 Gm/50 Ml Syringe) 25 gm IVPUSH Q15M PRN; Protocol PRN Reason: per Hypoglycemia Standing Ord. Fentanyl (Fentanyl Citrate/Pf 100 Mcg/2 Ml Vial) 25 mcg IVPUSH Q5M PRN; Protocol PRN Reason: Pain, Moderate(Pain Scale 4-6) Glucose (Glucose Gel 15 Gm Gel..Gram.) 15 gm PO Q15M PRN; Protocol PRN Reason: per Hypoglycemia Standing Ord. Insulin Human Lispro (Insulin Lispro 100 Unit/Ml 3 Ml Vial) 0 unit SUBCUT Q6H [facility]; Protocol Last Admin: 09/08/23 12:52 Dose: 2 unit Documented By: LILLY Lorazepam (Lorazepam 1 Mg Tablet) 1 mg PO TID PRN PRN Reason: anxiety Metoprolol Succinate (Metoprolol Succinate Er 50 Mg Tab.Er.24h) 50 mg PO DAILY [facility]; Protocol Last Admin: 09/08/23 08:08 Dose: 50 mg Documented By: LILLY Multivitamins/Vitamin C (Multivitamin Tablet) 1 tab PO DAILY [facility] Last Admin: 09/08/23 08:08 Dose: 1 tab Documented By: LILLY Omeprazole (Omeprazole 40 Mg Capsule.Dr) 40 mg PO DAILY@0630 [facility] Last Admin: 09/08/23 05:18 Dose: 40 mg Documented By: MARY Ondansetron HCl (Ondansetron Hcl 4 Mg/2 Ml Vial) 4 mg IVPUSH ONCE PRN PRN Reason: Nausea and Vomiting Pantoprazole Sodium (Pantoprazole Sodium 40 Mg/10 Ml Vial) 40 mg IV Q12H [facility] Last Admin: 09/08/23 05:18 Dose: 40 mg Documented By: MARY Sodium Chloride (0.9 % Sodium Chloride Flush 3 Ml Syringe) 3 ml IVFLUSH QSHIFT [facility] Last Admin: 09/08/23 08:08 Dose: 3 ml Documented By: LILLY Valsartan (Valsartan 160 Mg Tablet) 160 mg PO DAILY [facility]; Protocol Last Admin: 09/08/23 08:08 Dose: 160 mg Documented By: LILLY Zolpidem Tartrate (Zolpidem Tartrate 5 Mg Tablet) 10 mg PO BEDTIME PRN PRN Reason: insomnia Last Admin: 09/07/23 00:35 Dose: 10 mg Documented By: RED Labs 09/08/23 07:22 09/05/23 20:11 Labs: Laboratory Results - last 24 hr 09/05/23 09/07/23 09/07/23 20:11 16:49 16:49 MCV 100.4 H Cancelled MCH 35.0 H MCHC RDW Plt Count MPV Absolute Nucleated RBC Nucleated RBC % (auto) POC Glucose Blood Type O Positive Antibody Screen NEGATIVE Crossmatch See Detail 09/07/23 09/07/23 09/07/23 16:49 16:49 16:49 MCV MCH Cancelled MCHC 34.8 Cancelled RDW 18.1 H Cancelled Plt Count 194 MPV Absolute Nucleated RBC Nucleated RBC % (auto) POC Glucose Blood Type Antibody Screen Crossmatch 09/07/23 09/07/23 09/07/23 16:49 16:49 16:49 MCV MCH MCHC RDW Plt Count Cancelled MPV 10.9 Cancelled Absolute Nucleated RBC 0.030 H Cancelled Nucleated RBC % (auto) 0.4 H POC Glucose Blood Type Antibody Screen Crossmatch 09/07/23 09/07/23 09/07/23 16:49 17:34 20:58 MCV MCH MCHC RDW Plt Count MPV Absolute Nucleated RBC Nucleated RBC % (auto) Cancelled POC Glucose 136 H 135 H Blood Type Antibody Screen Crossmatch 09/07/23 09/07/23 09/08/23 21:09 23:42 06:24 MCV 98.5 H MCH 33.8 H MCHC 34.3 RDW 18.8 H Plt Count 208 MPV 10.9 Absolute Nucleated RBC 0.020 H Nucleated RBC % (auto) 0.2 POC Glucose 129 H 102 Blood Type Antibody Screen Crossmatch 09/08/23 09/08/23 07:22 11:45 MCV 97.8 MCH 33.3 H MCHC 34.1 RDW 18.5 H Plt Count 208 MPV 10.9 Absolute Nucleated RBC 0.000 Nucleated RBC % (auto) 0.0 POC Glucose 164 H Blood Type Antibody Screen Crossmatch Assessment and Plan (1) Acute blood loss anemia: Status: Acute Plan 88 yo M with past medical history of GI bleeding, GERD, atrial fibrillation (Watchman device implant), S/P left foot surgery - taking aspirin, essential hypertension, DMII, and hyperlipidemia who was admitted after complaining of dark stools and was anemic with an H/H of 5.7/17.3. acute blood loss anemia sec GI bleed (unclear etiology)- h/h pf 5.7/17.3 then got 2 prbc went up to 8.5 yesterday then trending down slowly to 6.8. s/p egd yesterday:Gastritis and multiple gastric polyps vitals stable ,no new symproms ,1 bm -blackish, no gross bleeding d/w GI: recomended 1 prbc transfusion and repeat h/h 2 hour afterwards ,c ontinue Protonix 40mg BID, hold aspirin. scheduled colonoscopy on 09/09/23 started on clear liquid ,colonprep ,npo past midnight for possible scheduled colonoscopy on 09/09/23 . Acute blood loss anemia -- s/p 4 PRBC as needed during this admission 2 prbc (09/07/23) transfused . last 2 h.h stable moniter cbc closely Atrial fibrillation s/p watman device implantation -- continue amlodipine, metoprolol. Rate controlled. DM type II -- Continue sitagliptin, SSI, and repeat blood glucose q6HR while patient is NPO HTN -- Continue valsartan HLD --continue simvastatin DVT prophylaxis -- Anticoagulation contraindicated secondary to upper GI bleed. Apply SCDs. inpatient need :acute blood loss anemia sec GI bleed- need prbc transfusion ,h/h monitering ,also need Gi workup and interventions depending upon clinical course. patient and family updated in detail . Quality Stroke Does the patient have a stroke diagnosis?: No VTE Prior VTE?: No VTE Risk Level:: Medical - moderate - high VTE Device Contraindication: N/A - Device Ordered VTE Drug Contraindication: Treatment Not Indicated
[2023-09-08 16:08] LABS: Glucose, Whole Blood 111 mg/dL (60-115)
[2023-09-08] MEDS: PEG 3350/Na Sulf,Bicarb,Cl/KCL 4,000 ML SOLN.RECON 4000 ML PO (16:31)
[2023-09-08 20:00] VITALS: BP 142/65; PULSE 78; RESP 20; TEMP 36.5; O2SAT 97
[2023-09-08 20:05] LABS: Hematocrit 26.1 % (42.0-52.0); Mean Corpuscular HGB Conc 34.5 g/dl (31.0-36.0); Mean Corpuscular Hemoglobin 33.7 pg (27.0-33.0); Mean Corpuscular Volume 97.8 fL (80.0-98.0); Mean Platelet Volume 10.2 fL (9.4-12.4); Platelet Count 219 X10*3/uL (160-400); Red Blood Count 2.67 X10*6/uL (4.60-5.80); White Blood Count 5.3 X10*3/uL (4.8-10.8)
[2023-09-08 21:28] LABS: Glucose, Whole Blood 115 mg/dL (60-115)
[2023-09-08 23:41] LABS: Glucose, Whole Blood 123 mg/dL (60-115)
[2023-09-09] VITALS (11 sets, daily range): BP systolic 133–174; BP diastolic 50–78; PULSE 65–78; RESP 15–19; TEMP 36.2–37.6; O2SAT 96–100
[2023-09-09] MEDS: Omeprazole 40 MG CAPSULE.DR PO (06:14)
[2023-09-09 06:23] LABS: Glucose, Whole Blood 118 mg/dL (60-115)
[2023-09-09 06:51] LABS: Hematocrit 25.2 % (42.0-52.0); Hemoglobin 8.6 g/dl (14.0-18.0); Mean Corpuscular HGB Conc 34.1 g/dl (31.0-36.0); Mean Corpuscular Hemoglobin 33.7 pg (27.0-33.0); Mean Corpuscular Volume 98.8 fL (80.0-98.0); Mean Platelet Volume 10.7 fL (9.4-12.4); Platelet Count 225 X10*3/uL (160-400); Red Blood Count 2.55 X10*6/uL (4.60-5.80); Red Cell Distribution Width 17.4 % (11.0-16.0); White Blood Count 3.9 X10*3/uL (4.8-10.8)
[2023-09-09] MEDS: Valsartan 160 MG TABLET PO (08:29)
[2023-09-09] MEDS: amLODIPine Besylate 10 MG TABLET PO (08:29)
[2023-09-09] MEDS: 0.9 % Sodium Chloride Flush 3 ML SYRINGE IVFLUSH (08:30)
[2023-09-09] MEDS: Atorvastatin Calcium 10 MG TABLET PO (08:30)
[2023-09-09] MEDS: Metoprolol Succinate ER 50 MG TAB.ER.24H PO (08:30)
[2023-09-09] MEDS: Dextrose 5 % and 0.9 % NaCl 1,000 ML 80 ML IVCONT (08:30)
[2023-09-09] MEDS: Multivitamin TABLET 1 TAB PO (08:30)
[2023-09-09 08:57] LABS: Hematocrit 25.2 % (42.0-52.0); Hemoglobin 8.9 g/dl (14.0-18.0)
[2023-09-09 11:35] LABS: Glucose, Whole Blood 126 mg/dL (60-115)
--- NOTE | 2023-09-09 12:00 | P.PNIM_ITS ---
Subjective Subjective Date of Service: 09/09/23 Interval History: Gib Review of Systems no new bleed no nausea or vomitin Physical Exam 2 Vital Signs: Vital Signs: Last Vital Signs Temp 98.3 F 09/09/23 11:18 Pulse 78 09/09/23 11:18 Resp 18 09/09/23 11:18 BP 161/70 H 09/09/23 11:18 Pulse Ox 96 09/09/23 11:18 O2 Del Method Room Air 09/09/23 11:18 BMI result Body Mass Index 23.9 Appearance: Alert.? Oriented X3.? cvs: rrr, [id number] . res: clear to auscultation ,no rhonchii or wheezing abd: no rebound or guarding ,nt, bs present. ext pulses present , no cyanosis. neuro: axo3 , nonfocal Objective Data Active Medications Acetaminophen (Acetaminophen 325 Mg Tablet) 650 mg PO Q6H PRN PRN Reason: Pain, Mild (Pain Scale 1-3) Albuterol Sulfate (Albuterol Sulfate 90 Mcg 8 Gm Inhaler) 2 puff INHALE QID PRN PRN Reason: shortness of breath or wheezing Amlodipine Besylate (Amlodipine Besylate 10 Mg Tablet) 10 mg PO DAILY [facility]; Protocol Last Admin: 09/09/23 08:29 Dose: 10 mg Documented By: AUGUSTIN Atorvastatin Calcium (Atorvastatin Calcium 10 Mg Tablet) 10 mg PO DAILY [facility] Last Admin: 09/09/23 08:30 Dose: 10 mg Documented By: AUGUSTIN Dextrose (Dextrose 50 % 25 Gm/50 Ml Syringe) 25 gm IVPUSH Q15M PRN; Protocol PRN Reason: per Hypoglycemia Standing Ord. Fentanyl (Fentanyl Citrate/Pf 100 Mcg/2 Ml Vial) 25 mcg IVPUSH Q5M PRN; Protocol PRN Reason: Pain, Moderate(Pain Scale 4-6) Glucose (Glucose Gel 15 Gm Gel..Gram.) 15 gm PO Q15M PRN; Protocol PRN Reason: per Hypoglycemia Standing Ord. Dextrose/Sodium Chloride (D5ns) 1,000 mls @ 80 mls/hr IVCONT .[id number] [facility] Last Admin: 09/09/23 08:30 Dose: 80 mls/hr Documented By: AUGUSTIN Insulin Human Lispro (Insulin Lispro 100 Unit/Ml 3 Ml Vial) 0 unit SUBCUT Q6H [facility]; Protocol Last Admin: 09/09/23 11:37 Dose: Not Given Documented By: AUGUSTIN Non-Admin Reason: No Insulin Coverage Lorazepam (Lorazepam 1 Mg Tablet) 1 mg PO TID PRN PRN Reason: anxiety Metoprolol Succinate (Metoprolol Succinate Er 50 Mg Tab.Er.24h) 50 mg PO DAILY [facility]; Protocol Last Admin: 09/09/23 08:30 Dose: 50 mg Documented By: AUGUSTIN Multivitamins/Vitamin C (Multivitamin Tablet) 1 tab PO DAILY [facility] Last Admin: 09/09/23 08:30 Dose: 1 tab Documented By: AUGUSTIN Omeprazole (Omeprazole 40 Mg Capsule.Dr) 40 mg PO DAILY@0630 [facility] Last Admin: 09/09/23 06:14 Dose: 40 mg Documented By: MARIA ESTHER Ondansetron HCl (Ondansetron Hcl 4 Mg/2 Ml Vial) 4 mg IVPUSH ONCE PRN PRN Reason: Nausea and Vomiting Sodium Chloride (0.9 % Sodium Chloride Flush 3 Ml Syringe) 3 ml IVFLUSH QSHIFT [facility] Last Admin: 09/09/23 08:30 Dose: 3 ml Documented By: AUGUSTIN Valsartan (Valsartan 160 Mg Tablet) 160 mg PO DAILY [facility]; Protocol Last Admin: 09/09/23 08:29 Dose: 160 mg Documented By: AUGUSTIN Zolpidem Tartrate (Zolpidem Tartrate 5 Mg Tablet) 10 mg PO BEDTIME PRN PRN Reason: insomnia Last Admin: 09/07/23 00:35 Dose: 10 mg Documented By: RDE Labs 09/09/23 08:29 09/05/23 20:11 Labs: Laboratory Results - last 24 hr 09/08/23 09/08/23 09/08/23 16:05 19:58 21:21 MCV 97.8 MCH 33.7 H MCHC 34.5 RDW 18.0 H Plt Count 219 MPV 10.2 Absolute Nucleated RBC 0.000 Nucleated RBC % (auto) 0.0 POC Glucose 111 115 09/08/23 09/09/23 09/09/23 23:34 05:52 06:18 MCV 98.8 H MCH 33.7 H MCHC 34.1 RDW 17.4 H Plt Count 225 MPV 10.7 Absolute Nucleated RBC 0.000 Nucleated RBC % (auto) 0.0 POC Glucose 123 H 118 H 09/09/23 11:21 MCV MCH MCHC RDW Plt Count MPV Absolute Nucleated RBC Nucleated RBC % (auto) POC Glucose 126 H Assessment and Plan (1) Acute blood loss anemia: Status: Acute Plan 88 yo M with past medical history of GI bleeding, GERD, atrial fibrillation (Watchman device implant), S/P left foot surgery - taking aspirin, essential hypertension, DMII, and hyperlipidemia who was admitted after complaining of dark stools and was anemic with an H/H of 5.7/17.3. acute blood loss anemia sec GI bleed (unclear etiology)- s/p egd :Gastritis and multiple gastric polyps s/p colonoscopy09/09/23:One small polyp removed - polyp was not retrieved,Moderate to severe diverticulosis ,Yellow stool throughout the colon without evidence of bleeding GI bleeding likely from right sided diverticulosis. d/w GI: continue Protonix 40mg BID, hold aspirin. if h/h stable plan dc in am advance diet Acute blood loss anemia -- s/p 4 PRBC as needed during this admission h.h stable moniter cbc closely Atrial fibrillation s/p watman device implantation -- continue amlodipine, metoprolol. Rate controlled. DM type II -- Continue sitagliptin, SSI, and repeat blood glucose q6HR while patient is NPO HTN -- Continue valsartan HLD --continue simvastatin DVT prophylaxis -- Anticoagulation contraindicated secondary to upper GI bleed. Apply SCDs. inpatient need :acute blood loss anemia sec GI bleed- need prbc transfusion ,h/h monitering and moniter for bleeding,also need Gi workup and interventions depending upon clinical course. patient and family updated in detail . Quality Stroke Does the patient have a stroke diagnosis?: No VTE Prior VTE?: No VTE Risk Level:: Medical - moderate - high VTE Device Contraindication: N/A - Device Ordered VTE Drug Contraindication: Treatment Not Indicated
--- NOTE | 2023-09-09 13:48 | P.CONAN_ITS ---
[facility] Active Problems Active Problems: All Active Problems (Updated 09/05/23 @ 22:20 by Noemy Cao MD) Acute blood loss anemia (Acute) Acute upper GI bleed (Acute) Pain of right sacroiliac joint (Acute) Macrocytic anemia (Acute) Colonoscopy refused (Acute) Ulcer of left foot (Acute) Serum total bilirubin elevated (Acute) Abdominal pain (Acute) PAC (premature atrial contraction) (Acute) Paroxysmal atrial fibrillation (Acute) Erectile dysfunction (Acute) Medicare annual wellness visit, subsequent (Acute) PAC (premature atrial contraction) (Acute) Left flank pain (Acute) Bacteriuria with pyuria (Acute) 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) Adult general medical exam (Acute) Bronchitis (Acute) Hemorrhage of gastrointestinal tract, unspecified (Acute) Essential hypertension (Acute) Paroxysmal atrial flutter (Acute) Insomnia (Acute) Pyelonephritis (Acute) Psoriasis (Acute) Vitamin D deficiency (Acute) Arthralgia (Acute) Neuropathy (Acute) GERD without esophagitis (Acute) Gastrointestinal hemorrhage (Acute) Anemia (Acute) Pure hypercholesterolemia (Acute) Benign essential hypertension (Acute) Diabetes mellitus (Acute) Atrial flutter (Acute) Past Medical History Medical History Paroxysmal atrial fibrillation Erectile dysfunction Screening for colon cancer Essential hypertension Paroxysmal atrial flutter Insomnia Pyelonephritis Psoriasis Vitamin D deficiency Arthralgia Neuropathy GERD without esophagitis Gastrointestinal hemorrhage Anemia Pure hypercholesterolemia Benign essential hypertension Diabetes mellitus Atrial flutter Family History Family History Father Pneumonia Mother Myocardial infarction Son No problems noted. Daughter No problems noted. Family history of problems with anesthesia: No Surgical History Surgical History History of colonoscopy S/P ablation of atrial flutter History of inguinal hernia repair History of left hip replacement History of Problems with Anesthesia: No Social History Social History Household Members: None Housing: House Alcohol intake: current Alcohol intake frequency: 0-2 drinks per day Alcohol type: beer and hard liquor Comment: low fall Patient Tobacco Use Status: Never used Tobacco Tobacco use type: Cigarette e-Cigarette/Vaping Use: Never Used Second Hand Smoke Exposure: Yes Advance Directives Date on File: 08/26/00 service: Yes Current occupational status: retired Cognitive needs: No Hearing needs: Yes Vision needs: Yes Meds Allergies Allergy/AdvReac Type Severity Reaction Status Date / Time Penicillins Allergy Intermediate RASH/HIVES Verified 09/09/23 13:33 Sulfa (Sulfonamide Allergy Intermediate RASH/HIVES, Verified 09/09/23 13:33 Antibiotics) hives Active Medications: Current Medications Acetaminophen (Acetaminophen 325 Mg Tablet) 650 mg PO Q6H PRN PRN Reason: Pain, Mild (Pain Scale 1-3) Albuterol Sulfate (Albuterol Sulfate 90 Mcg 8 Gm Inhaler) 2 puff INHALE QID PRN PRN Reason: shortness of breath or wheezing Amlodipine Besylate (Amlodipine Besylate 10 Mg Tablet) 10 mg PO DAILY [facility]; Protocol Last Admin: 09/09/23 08:29 Dose: 10 mg Atorvastatin Calcium (Atorvastatin Calcium 10 Mg Tablet) 10 mg PO DAILY [facility] Last Admin: 09/09/23 08:30 Dose: 10 mg Dextrose (Dextrose 50 % 25 Gm/50 Ml Syringe) 25 gm IVPUSH Q15M PRN; Protocol PRN Reason: per Hypoglycemia Standing Ord. Fentanyl (Fentanyl Citrate/Pf 100 Mcg/2 Ml Vial) 25 mcg IVPUSH Q5M PRN; Protocol PRN Reason: Pain, Moderate(Pain Scale 4-6) Glucose (Glucose Gel 15 Gm Gel..Gram.) 15 gm PO Q15M PRN; Protocol PRN Reason: per Hypoglycemia Standing Ord. Dextrose/Sodium Chloride (D5ns) 1,000 mls @ 80 mls/hr IVCONT .[id number] [facility] Last Admin: 09/09/23 08:30 Dose: 80 mls/hr Insulin Human Lispro (Insulin Lispro 100 Unit/Ml 3 Ml Vial) 0 unit SUBCUT Q6H [facility]; Protocol Last Admin: 09/09/23 11:37 Dose: Not Given Lorazepam (Lorazepam 1 Mg Tablet) 1 mg PO TID PRN PRN Reason: anxiety Metoprolol Succinate (Metoprolol Succinate Er 50 Mg Tab.Er.24h) 50 mg PO DAILY [facility]; Protocol Last Admin: 09/09/23 08:30 Dose: 50 mg Multivitamins/Vitamin C (Multivitamin Tablet) 1 tab PO DAILY [facility] Last Admin: 09/09/23 08:30 Dose: 1 tab Omeprazole (Omeprazole 40 Mg Capsule.Dr) 40 mg PO DAILY@0630 [facility] Last Admin: 09/09/23 06:14 Dose: 40 mg Ondansetron HCl (Ondansetron Hcl 4 Mg/2 Ml Vial) 4 mg IVPUSH ONCE PRN PRN Reason: Nausea and Vomiting Sodium Chloride (0.9 % Sodium Chloride Flush 3 Ml Syringe) 3 ml IVFLUSH QSHIFT [facility] Last Admin: 09/09/23 08:30 Dose: 3 ml Valsartan (Valsartan 160 Mg Tablet) 160 mg PO DAILY [facility]; Protocol Last Admin: 09/09/23 08:29 Dose: 160 mg Zolpidem Tartrate (Zolpidem Tartrate 5 Mg Tablet) 10 mg PO BEDTIME PRN PRN Reason: insomnia Last Admin: 09/07/23 00:35 Dose: 10 mg Home Medications Medication Instructions Recorded Confirmed Last Taken Type acetaminophen 500 mg tablet 1,000 mg PO Q8H PRN pain 09/06/23 09/06/23 Unknown History amlodipine 10 mg tablet 10 mg PO DAILY 09/06/23 09/06/23 09/05/23 History multivitamin 1 tab PO DAILY 09/06/23 09/06/23 09/05/23 History omega 2-euo-kgg-fish oil 300 1 cap PO DAILY 09/06/23 09/06/23 09/05/23 History mg-1,000 mg capsule,delayed release (Fish Oil) omeprazole 20 mg capsule,delayed 40 mg PO DAILY@0630 09/06/23 09/06/23 09/05/23 History release valsartan 160 mg tablet 160 mg PO DAILY 09/06/23 09/06/23 09/05/23 History Exam Height,Weight and Vital Signs: Height 5 ft 10 in Weight 75.6 kg Last Vital Signs Temp 98.7 F 09/09/23 13:37 Pulse 76 09/09/23 13:37 Resp 16 09/09/23 13:37 BP 169/70 H 09/09/23 13:37 Pulse Ox 100 09/09/23 13:37 O2 Del Method Room Air 09/09/23 13:37 Pertinent Lab Results Pertinent Lab Results: Laboratory Tests 09/05/23 09/05/23 09/05/23 20:00 20:11 22:43 WBC 7.3 RBC 1.54 L D Hgb 5.7 L* D Hct 17.3 L* D MCV 112.3 H MCH 37.0 H MCHC 32.9 RDW 15.9 Plt Count 209 MPV 11.4 Absolute Nucleated RBC 0.040 H Nucleated RBC % (auto) 0.5 H Smear Path Review PT 13.4 H INR 1.1 APTT 25.8 L Sodium 136 Potassium 4.3 Chloride 106 Carbon Dioxide 21 L Anion Gap 13 BUN 18 H Creatinine 1.07 Estim Creat Clear Calc 51.1 Estimated GFR > 60 POC Glucose 195 H Random Glucose 189 H Calcium 8.4 D Total Bilirubin 0.8 AST 11 ALT 8 Alkaline Phosphatase 39 Total Protein 5.9 L Albumin 3.6 Stool Occult Blood POSITIVE Blood Type O Positive Antibody Screen NEGATIVE Crossmatch See Detail 09/06/23 09/06/23 09/06/23 00:45 06:48 12:37 WBC RBC Hgb Hct MCV MCH MCHC RDW Plt Count MPV Absolute Nucleated RBC Nucleated RBC % (auto) Smear Path Review PT INR APTT Sodium Potassium Chloride Carbon Dioxide Anion Gap BUN Creatinine Estim Creat Clear Calc Estimated GFR POC Glucose 146 H 135 H 124 H Random Glucose Calcium Total Bilirubin AST ALT Alkaline Phosphatase Total Protein Albumin Stool Occult Blood Blood Type Antibody Screen Crossmatch 09/06/23 09/06/23 09/06/23 13:11 16:32 20:36 WBC 7.2 RBC 2.47 L D Hgb 8.5 L D Hct 25.5 L D MCV 103.2 H D MCH 34.4 H MCHC 33.3 RDW 18.7 H Plt Count 191 MPV 11.5 Absolute Nucleated RBC 0.040 H Nucleated RBC % (auto) 0.6 H Smear Path Review PT INR APTT Sodium Potassium Chloride Carbon Dioxide Anion Gap BUN Creatinine Estim Creat Clear Calc Estimated GFR POC Glucose 123 H 131 H Random Glucose Calcium Total Bilirubin AST ALT Alkaline Phosphatase Total Protein Albumin Stool Occult Blood Blood Type Antibody Screen Crossmatch 09/07/23 09/07/23 09/07/23 00:40 06:14 07:11 WBC RBC Hgb Hct MCV MCH MCHC RDW Plt Count MPV Absolute Nucleated RBC Nucleated RBC % (auto) Smear Path Review PT INR APTT Sodium Potassium Chloride Carbon Dioxide Anion Gap BUN Creatinine Estim Creat Clear Calc Estimated GFR POC Glucose 142 H 107 120 H Random Glucose Calcium Total Bilirubin AST ALT Alkaline Phosphatase Total Protein Albumin Stool Occult Blood Blood Type Antibody Screen Crossmatch 09/07/23 09/07/23 09/07/23 08:17 10:49 11:52 WBC RBC Hgb 7.3 L 6.8 L* Hct 21.5 L 20.0 L* MCV MCH MCHC RDW Plt Count MPV Absolute Nucleated RBC Nucleated RBC % (auto) Smear Path Review PT INR APTT Sodium Potassium Chloride Carbon Dioxide Anion Gap BUN Creatinine Estim Creat Clear Calc Estimated GFR POC Glucose 115 Random Glucose Calcium Total Bilirubin AST ALT Alkaline Phosphatase Total Protein Albumin Stool Occult Blood Blood Type Antibody Screen Crossmatch 09/07/23 09/07/23 09/07/23 16:49 16:49 16:49 WBC 7.2 Cancelled RBC 2.26 L Cancelled Hgb 7.9 L Hct MCV MCH MCHC RDW Plt Count MPV Absolute Nucleated RBC Nucleated RBC % (auto) Smear Path Review PT INR APTT Sodium Potassium Chloride Carbon Dioxide Anion Gap BUN Creatinine Estim Creat Clear Calc Estimated GFR POC Glucose Random Glucose Calcium Total Bilirubin AST ALT Alkaline Phosphatase Total Protein Albumin Stool Occult Blood Blood Type Antibody Screen Crossmatch 09/07/23 09/07/23 09/07/23 16:49 16:49 16:49 WBC RBC Hgb Cancelled Hct 22.7 L Cancelled MCV 100.4 H Cancelled MCH 35.0 H MCHC RDW Plt Count MPV Absolute Nucleated RBC Nucleated RBC % (auto) Smear Path Review PT INR APTT Sodium Potassium Chloride Carbon Dioxide Anion Gap BUN Creatinine Estim Creat Clear Calc Estimated GFR POC Glucose Random Glucose Calcium Total Bilirubin AST ALT Alkaline Phosphatase Total Protein Albumin Stool Occult Blood Blood Type Antibody Screen Crossmatch 09/07/23 09/07/23 09/07/23 16:49 16:49 16:49 WBC RBC Hgb Hct MCV MCH Cancelled MCHC 34.8 Cancelled RDW 18.1 H Cancelled Plt Count 194 MPV Absolute Nucleated RBC Nucleated RBC % (auto) Smear Path Review PT INR APTT Sodium Potassium Chloride Carbon Dioxide Anion Gap BUN Creatinine Estim Creat Clear Calc Estimated GFR POC Glucose Random Glucose Calcium Total Bilirubin AST ALT Alkaline Phosphatase Total Protein Albumin Stool Occult Blood Blood Type Antibody Screen Crossmatch 09/07/23 09/07/23 09/07/23 16:49 16:49 16:49 WBC RBC Hgb Hct MCV MCH MCHC RDW Plt Count Cancelled MPV 10.9 Cancelled Absolute Nucleated RBC 0.030 H Cancelled Nucleated RBC % (auto) 0.4 H Smear Path Review PT INR APTT Sodium Potassium Chloride Carbon Dioxide Anion Gap BUN Creatinine Estim Creat Clear Calc Estimated GFR POC Glucose Random Glucose Calcium Total Bilirubin AST ALT Alkaline Phosphatase Total Protein Albumin Stool Occult Blood Blood Type Antibody Screen Crossmatch 09/07/23 09/07/23 09/07/23 16:49 17:34 20:58 WBC RBC Hgb Hct MCV MCH MCHC RDW Plt Count MPV Absolute Nucleated RBC Nucleated RBC % (auto) Cancelled Smear Path Review PT INR APTT Sodium Potassium Chloride Carbon Dioxide Anion Gap BUN Creatinine Estim Creat Clear Calc Estimated GFR POC Glucose 136 H 135 H Random Glucose Calcium Total Bilirubin AST ALT Alkaline Phosphatase Total Protein Albumin Stool Occult Blood Blood Type Antibody Screen Crossmatch 09/07/23 09/07/23 09/08/23 21:09 23:42 06:24 WBC 9.0 RBC 2.69 L Hgb 9.1 L Hct 26.5 L MCV 98.5 H MCH 33.8 H MCHC 34.3 RDW 18.8 H Plt Count 208 MPV 10.9 Absolute Nucleated RBC 0.020 H Nucleated RBC % (auto) 0.2 Smear Path Review PT INR APTT Sodium Potassium Chloride Carbon Dioxide Anion Gap BUN Creatinine Estim Creat Clear Calc Estimated GFR POC Glucose 129 H 102 Random Glucose Calcium Total Bilirubin AST ALT Alkaline Phosphatase Total Protein Albumin Stool Occult Blood Blood Type Antibody Screen Crossmatch 09/08/23 09/08/23 09/08/23 07:22 11:45 16:05 WBC 5.4 RBC 2.67 L Hgb 8.9 L Hct 26.1 L MCV 97.8 MCH 33.3 H MCHC 34.1 RDW 18.5 H Plt Count 208 MPV 10.9 Absolute Nucleated RBC 0.000 Nucleated RBC % (auto) 0.0 Smear Path Review PT INR APTT Sodium Potassium Chloride Carbon Dioxide Anion Gap BUN Creatinine Estim Creat Clear Calc Estimated GFR POC Glucose 164 H 111 Random Glucose Calcium Total Bilirubin AST ALT Alkaline Phosphatase Total Protein Albumin Stool Occult Blood Blood Type Antibody Screen Crossmatch 09/08/23 09/08/23 09/08/23 19:58 21:21 23:34 WBC 5.3 RBC 2.67 L Hgb 9.0 L Hct 26.1 L MCV 97.8 MCH 33.7 H MCHC 34.5 RDW 18.0 H Plt Count 219 MPV 10.2 Absolute Nucleated RBC 0.000 Nucleated RBC % (auto) 0.0 Smear Path Review PT INR APTT Sodium Potassium Chloride Carbon Dioxide Anion Gap BUN Creatinine Estim Creat Clear Calc Estimated GFR POC Glucose 115 123 H Random Glucose Calcium Total Bilirubin AST ALT Alkaline Phosphatase Total Protein Albumin Stool Occult Blood Blood Type Antibody Screen Crossmatch 09/09/23 09/09/23 09/09/23 05:52 06:18 08:29 WBC 3.9 L RBC 2.55 L Hgb 8.6 L 8.9 L Hct 25.2 L 25.2 L MCV 98.8 H MCH 33.7 H MCHC 34.1 RDW 17.4 H Plt Count 225 MPV 10.7 Absolute Nucleated RBC 0.000 Nucleated RBC % (auto) 0.0 Smear Path Review PT INR APTT Sodium Potassium Chloride Carbon Dioxide Anion Gap BUN Creatinine Estim Creat Clear Calc Estimated GFR POC Glucose 118 H Random Glucose Calcium Total Bilirubin AST ALT Alkaline Phosphatase Total Protein Albumin Stool Occult Blood Blood Type Antibody Screen Crossmatch 09/09/23 11:21 WBC RBC Hgb Hct MCV MCH MCHC RDW Plt Count MPV Absolute Nucleated RBC Nucleated RBC % (auto) Smear Path Review PT INR APTT Sodium Potassium Chloride Carbon Dioxide Anion Gap BUN Creatinine Estim Creat Clear Calc Estimated GFR POC Glucose 126 H Random Glucose Calcium Total Bilirubin AST ALT Alkaline Phosphatase Total Protein Albumin Stool Occult Blood Blood Type Antibody Screen Crossmatch Airway Mallampati Class: II TM Dist: >3cm Neck ROM: Full Partial: Upper (permanent) Heart: rrr Lungs: cta Assessment and Plan Assessment Anesthesia Assessment: Anesthesia Plan Discussed and Chart Reviewed Final Anesthetic Review Family History of Problems with Anesthesia: No History of Problems with Anesthesia: No NPO: Yes ASA Class: III Final Preanesthetic Review: No Changes in Pt Med Stat, Meds/Allgs Chart Reviewed and Consent Obtained/Reviewed Patient Risk: Intermediate Procedure Risk: Low Anesthetic Plan Anesthetic Plan: MAC: Disposition: Standard PACU
--- NOTE | 2023-09-09 13:51 | PC.NURSE ---
#18 PRN angio present in left AC. Flushed well. Dressing changed due to dried blood under tegaderm. Site asymptomatic.
--- NOTE | 2023-09-09 13:58 | MHC.CM.PN ---
EMR reviewed and per MD rounds, pt is not medically cleared for D/C due to pt undergoing a colonoscopy today. CM will continue to follow.
[2023-09-09 14:00] LABS: Glucose, Whole Blood 121 mg/dL (60-115)
--- NOTE | 2023-09-09 14:07 | PC.NURSE ---
Report given to Jonah sandoval RN.
--- NOTE | 2023-09-09 14:34 | MHC.SHP ---
Pre-Procedural Eval Section A Date of Service: 09/09/23 The patient is an INPATIENT: Yes Changes since office visit: Yes New Medical Problems, Yes Changes in Medication and Yes Patient answered all questions; No Cold of Flu in the past 2 weeks The History & Physical has been completed within 30 days and I have reviewed it.: Yes Section B Chief Complaint: upper gastrointestinal bleeding Allergies: Allergies Allergy/AdvReac Type Severity Reaction Status Date / Time Penicillins Allergy Intermediate RASH/HIVES Verified 09/09/23 13:33 Sulfa (Sulfonamide Allergy Intermediate RASH/HIVES, Verified 09/09/23 13:33 Antibiotics) hives Plan Diagnosis/Plan: Unchanged I have reviewed the history and physical and performed a pertinent physical examination on my patient. No changes have occurred unless specified. Time Spent With Patient Time: Total time managing care of this patient today ____ minutes.
--- NOTE | 2023-09-09 15:24 | W.PM.OPN ---
Operative Note Operative Note Date of Service: 09/09/23 Narrative: COLONOSCOPY TILL CECUM WITH SNARE POLYPECTOMY Pre-op diagnosis: GI bleeding, anemia Post-op diagnosis:? Colon polyp, moderate to severe pandiverticulosis Endoscopist:? Liz Montanez MD Anesthesia:?MAC Consent: Indications for the procedure and potential complications of bleeding, perforation, reaction to medications and missed diagnosis were discussed with the patient and informed consent was obtained. Instrument: Olympus CF H 190 L variable stiffness adult colonoscope Monitoring: Vital signs and clinical assessment, intermittent blood pressure monitoring, continuous EKG monitoring, Pulse oximetry and Carbon Dioxide monitoring were done throughout the procedure. Please see anesthesia flowsheet. Colon withdrawl time was 19 minutes. Procedure: The patient was placed in the left lateral decubitis position and pre-procedure medications were administered. After a digital rectal examination of the ano-rectum, the video colonoscope was inserted into the rectum and advanced through the colon to the cecum. The colonoscope was slowly withdrawn in a retrograde panoramic fashion and the colon mucosa was carefully examined including a retroflexed view of the rectum. Findings and interventions are described below. Procedure Difficulty: Without difficulty Findings: Terminal Ileum: Not evaluated Cecum: Moderate diverticulosis scattered throughout the colon Ascending Colon: Moderate diverticulosis scattered throughout the colon Transverse Colon: A 6-7 mm sessile polyp in the proximal transverse colon - removed with a cold snare and polyp was not retrieved. Moderate diverticulosis scattered throughout the colon Descending Colon: Moderate diverticulosis scattered throughout the colon Sigmoid Colon: Severe diverticulosis with luminal narrowing Rectum: Normal Ano-rectum: Hypertrophied anal papillae Colon preparation: Good after copious irrigation Charlotte Bowel Preparation Scale Right colon; 2 Transverse colon: 2 Left colon; 2 (0 = Unprepared colon segment with mucosa not seen due to solid stool that cannot be cleared. 1 = Portion of mucosa of the colon segment seen, but other areas of the colon segment not well seen due to staining, residual stool and/or opaque liquid. 2 = Minor amount of residual staining, small fragments of stool and/or opaque liquid, but mucosa of colon segment seen well. 3 = Entire mucosa of colon segment seen well with no residual staining, small fragments of stool or opaque liquid) Impression and Post Procedure Diagnosis: Colonoscopy Findings: One small polyp removed - polyp was not retrieved Moderate to severe diverticulosis seen in the entire colon Yellow stool throughout the colon without evidence of bleeding GI bleeding likely from right sided diverticulosis. Plan: Resume previous diet. If CBC remains stable without further bleeding, pt can be discharged home in the am. Repeat Colonoscopy not indicated due to advanced age. Above findings were reviewed with the patient.
[2023-09-09 17:14] LABS: Glucose, Whole Blood 106 mg/dL (60-115)
[2023-09-09 21:02] LABS: Glucose, Whole Blood 178 mg/dL (60-115)
[2023-09-10 04:00] VITALS: BP 147/62; PULSE 70; RESP 19; TEMP 37.3; O2SAT 98
[2023-09-10] MEDS: Omeprazole 40 MG CAPSULE.DR PO (06:09)
[2023-09-10] MEDS: 0.9 % Sodium Chloride Flush 3 ML SYRINGE IVFLUSH ×2 (06:09→08:05)
[2023-09-10 07:19] VITALS: BP 145/67; PULSE 67; RESP 18; TEMP 36.9; O2SAT 98
[2023-09-10 07:19] LABS: Hematocrit 24.2 % (42.0-52.0); Hemoglobin 8.4 g/dl (14.0-18.0); Mean Corpuscular HGB Conc 34.7 g/dl (31.0-36.0); Mean Platelet Volume 10.2 fL (9.4-12.4); Platelet Count 231 X10*3/uL (160-400); Red Blood Count 2.47 X10*6/uL (4.60-5.80); Red Cell Distribution Width 16.7 % (11.0-16.0); White Blood Count 4.8 X10*3/uL (4.8-10.8)
[2023-09-10] MEDS: Multivitamin TABLET 1 TAB PO (08:04)
[2023-09-10] MEDS: Valsartan 160 MG TABLET PO (08:04)
[2023-09-10] MEDS: Atorvastatin Calcium 10 MG TABLET PO (08:04)
[2023-09-10] MEDS: Metoprolol Succinate ER 50 MG TAB.ER.24H PO (08:04)
[2023-09-10] MEDS: amLODIPine Besylate 10 MG TABLET PO (08:05)
[2023-09-10 08:14] VITALS: O2SAT 98
[2023-09-10 11:07] VITALS: BP 140/77; PULSE 73; RESP 18; TEMP 36.9; O2SAT 97
--- NOTE | 2023-09-10 12:00 | HO.POSTANES ---
Post Anesthesia Evaluation Post Anesthesia Evaluation Date of Service: 09/10/23 Vital Signs: Vital Signs Temp Pulse Resp BP Pulse Ox O2 Del Method 09/10/23 11:07 98.5 F 73 18 140/77 H 97 Room Air 09/10/23 08:14 98 Room Air 09/10/23 07:19 98.4 F 67 18 145/67 H 98 Room Air 09/10/23 04:00 99.1 F 70 19 147/62 H 98 Room Air Anesthesia: Monitored Mental Status: Awake Pain Control: Satisfactory Nausea/Vomiting: None Hydration: Adequate Anesthesia-Related Issues: No Anes. Related Issues
[2023-09-10 13:48] VITALS: O2SAT 94
--- NOTE | 2023-09-10 14:02 | P.DS_ITS ---
DS: Providers Provider Date of Service: 09/10/23 Date of admission: 09/05/23 22:47 Primary care physician: Leonard Ames MD Consults: 09/06/23 00:59 Consult to Gastroenterology Routine Consulting Provider: Liz Montanez Reason for consultation: Gastrointestinal bleeding Has provider been notified: Yes DS: Diagnosis Discharge Diagnosis (1) Acute blood loss anemia: Status: Resolved DS: Summary Hospital Course Hospital Course: Admission HPI Contreras Chapman is a 88 years old man with past medical history significant for events of GI bleeding, GERD, atrial fibrillation (Watchman device implant) - taking aspirin, essential hypertension and hyperlipidemia who presents to the emergency department complaining of having multiple episodes of dark stools. He does complain of generalized fatigue and dizziness. He denied any associated abdominal pain, nausea, vomiting or diarrhea. He denied any fever or chills. He stated that he had a surgical procedure to his left foot and was instructed by his orthopedic surgeon to take aspirin. He has been receiving treatment for a left 2nd digit hammertoe with terminal callus/ulcer. He denied any acute genitourinary symptom. In the ED, he was found to have stable vital signs. Blood workup is remarkable for hemoglobin of 5.7. BUN is elevated. Creatinine is normal. Stool for occult blood is positive. Abdominopelvic CT scan show no evidence of active extravasation. There is a prominent colonic diverticulosis without acute diverticulitis. ED tx: Protonix 80 mg IV x1. Two units of PRBC ordered. Hospital course: The patient presented with acute blood loss anemia with hemoglobin of 5. He had recently been put on high dose of Aspirin following a foot surgery. Aspirin was stopped. He was transfused 4 units of RBC. He underwent EGD on 09/06 with no source of bleed but found to have gastritis and gastric polyps. He subsequently underwent colonoscopy on 09/09 and noted to have One small polyp removed - polyp was not retrieved,Moderate to severe diverticulosis ,Yellow stool throughout the colon without evidence of bleeding. It is postulated that GI bleed likely came from diverticulosis. H/H has remains stable, diet has been advanced and tolerating. He will be discharged with oral PPI Atrial fibrillation s/p watman device implantation -- continue amlodipine, metoprolol. Rate controlled. DM type II -- Continue sitagliptin, SSI, and repeat blood glucose q6HR while patient is NPO HTN -- Continue valsartan HLD --continue simvastatin Time Attestation Discharge coordination time: Greater than 30 minutes Quality: Safe Use of Opioids Does Pt have an Active Cancer Diagnosis on the Problem List?: No Quality: Stroke Does the patient have a stroke diagnosis?: No Physical Exam Vital Signs: Vital Signs: Last Vital Signs Temp 98.5 F 09/10/23 11:07 Pulse 73 09/10/23 11:07 Resp 18 09/10/23 11:07 BP 140/77 H 09/10/23 11:07 Pulse Ox 97 09/10/23 11:07 O2 Del Method Room Air 09/10/23 11:07 BMI result Body Mass Index 23.9 DS: Data Data Completed and Pending Pending studies at discharge: Pending at discharge 09/06/23 18:55 Surgical [PTH] Routine Labs on day of discharge: Laboratory Results - last 24 hr 09/09/23 09/09/23 09/09/23 14:27 17:08 19:32 WBC RBC Hgb Hct MCV MCH MCHC RDW Plt Count MPV Absolute Nucleated RBC Nucleated RBC % (auto) POC Glucose 106 178 H Blood Type O Positive Antibody Screen NEGATIVE 09/10/23 06:26 WBC 4.8 RBC 2.47 L Hgb 8.4 L Hct 24.2 L MCV 98.0 MCH 34.0 H MCHC 34.7 RDW 16.7 H Plt Count 231 MPV 10.2 Absolute Nucleated RBC 0.000 Nucleated RBC % (auto) 0.0 POC Glucose Blood Type Antibody Screen Discharge Plan Discharge Anticipated Discharge Date/Time: 09/10/23 13:54 Patient Disposition: Home, Self-Care Discharge Diagnosis: Gi bleeding, acute blood loss anemia Referrals: Leonard Ames MD [Primary Care Provider] - 1 Week Discharge Medications: Continued simvastatin 20 mg tablet 20 mg PO QPM Qty: 90 3RF lorazepam 1 mg tablet 1 mg PO TID PRN (Reason: anxiety) 90 Days Qty: 270 1RF zolpidem 10 mg tablet 10 mg PO BEDTIME PRN (Reason: insomnia) Qty: 90 0RF metoprolol succinate 50 mg tablet extended release 24 hr 50 mg PO DAILY Qty: 90 3RF Januvia 100 mg tablet 100 mg PO DAILY Qty: 90 0RF amlodipine 10 mg tablet 10 mg PO DAILY valsartan 160 mg tablet 160 mg PO DAILY acetaminophen 500 mg tablet 1,000 mg PO Q8H PRN (Reason: pain) multivitamin Tablet 1 tab PO DAILY omega [id number]-fish oil [Fish Oil] 300-1,000 mg Capsule,Delayed Release(Dr/ Ec) 1 cap PO DAILY omeprazole 20 mg capsule,delayed release(DR/EC) 40 mg PO DAILY@0630 tramadol 50 mg tablet 50 mg PO BID PRN (Reason: pain) Qty: 60 0RF Discharge Orders: Discharge Order (Routine); Ordered 09/10/23 Ordered By: Grayson Sorenson Diet: Advance to usual diet Activity on Discharge: As tolerated Stand Alone Forms: Patient Portal Discharge page Care Plan Goals: recovery from gi bleedig and anemia Health Concerns: anemia and gi bleeding Plan of Treatment: stop taking aspirin, no motrin or advil, follow up with your doctor in a week, call for appointment Assessment: see above Discharge Date/Time: 09/10/23 16:07
--- NOTE | 2023-09-10 14:55 | MHC.CM.PN ---
Patient has been medically cleared for dc to home today, self care. CM met with Patient at bedside and addressed IMM with him, providing Patient with the original and a copy has been placed on the chart. Patient called his Son, while CM was in the room and his Son will transport home.
== END 2023-09-10 16:07 | disposition home or self-care (01) | DRG 378 ==
LOC: HO.ED 22:20 → HO.EDOVER 09-06 00:10 → HO.IMC 09-06 14:38
PROVIDERS: Internal Medicine; Internal Medicine Gastroenterology; Admitting Provider Internal Medicine; Emergency Provider Student in an Organized Health Care Education/Training Program; PCP Internal Medicine; Visit Provider Internal Medicine
PROC: 0DJ08ZZ Inspection of Upper Intestinal Tract, Via Natural or Artificial Opening Endoscopic (ICD-10-PCS; CPT 43235; principal; 2023-09-06 16:20)
PROC: 0DJD8ZZ Inspection of Lower Intestinal Tract, Via Natural or Artificial Opening Endoscopic (ICD-10-PCS; CPT 45378; principal; 2023-09-09 15:20)
DX: K57.51 Diverticulosis of both small and large intestine without perforation or abscess with bleeding (principal); D62 Acute posthemorrhagic anemia; I48.21 Permanent atrial fibrillation; K29.71 Gastritis, unspecified, with bleeding; E11.40 Type 2 diabetes mellitus with diabetic neuropathy, unspecified; I10 Essential (primary) hypertension; K63.5 Polyp of colon; K31.7 Polyp of stomach and duodenum; E78.5 Hyperlipidemia, unspecified; Z95.818 Presence of other cardiac implants and grafts; Z79.82 Long term (current) use of aspirin; Z79.899 Other long term (current) drug therapy
CPT/HCPCS: 36415; 74178; 80053; 82272; 82947; 85014; 85018; 85027; 85610; 85730; 86850; 86900; 86901; 86923; 88305; 88342; 93005; 99285; C9113; J1940; J2704; J3010; P9016; Q9967

== ENCOUNTER → 2023-09-05 19:49 | Outpatient (BNV) | payer MEDICARE, OTHER, SELFPAY | PROVIDERS: Admitting Provider Internal Medicine; Emergency Provider Student in an Organized Health Care Education/Training Program; PCP Internal Medicine; Visit Provider Internal Medicine Cardiovascular Disease | DX: R00.0 Tachycardia, unspecified (principal); R94.31 Abnormal electrocardiogram [ECG] [EKG] | CPT/HCPCS: 93010 ==

== ENCOUNTER → 2023-09-05 22:47 | Outpatient (BNV) | payer MEDICARE, OTHER, SELFPAY | PROVIDERS: Admitting Provider Internal Medicine; Emergency Provider Student in an Organized Health Care Education/Training Program; PCP Internal Medicine; Visit Provider Internal Medicine Gastroenterology | DX: K92.2 Gastrointestinal hemorrhage, unspecified (principal); D53.9 Nutritional anemia, unspecified; K57.90 Diverticulosis of intestine, part unspecified, without perforation or abscess without bleeding; K63.5 Polyp of colon | CPT/HCPCS: 45385; 99222 ==

== ENCOUNTER → 2023-09-05 22:47 | Outpatient (BNV) | payer MEDICARE, OTHER, SELFPAY | PROVIDERS: Admitting Provider Internal Medicine; Emergency Provider Student in an Organized Health Care Education/Training Program; PCP Internal Medicine; Visit Provider Internal Medicine | DX: D62 Acute posthemorrhagic anemia (principal); K92.2 Gastrointestinal hemorrhage, unspecified | CPT/HCPCS: 99223; 99232; 99233; 99239 ==

== ENCOUNTER → 2023-11-20 13:04 | Outpatient (REF) | payer MEDICARE, OTHER, SELFPAY ==
--- NOTE | 2023-11-20 13:09 | HM_ITS ---
* Total monitoring time 3 days. * Underlying rhythm is sinus with an average rate of 68/Min. Range 59 to 102/Min. * Frequent supraventricular ectopy with a burden of 12%. * Rare ventricular ectopy with a burden of 0.3%. Very rare couplets. No significant runs. * No patient markers or diary events. MTDD
== END ==
LOC: HO.CARD 13:04
PROVIDERS: Visit Provider Internal Medicine
DX: I48.92 Unspecified atrial flutter (principal)
CPT/HCPCS: 93242

== ENCOUNTER → 2023-11-20 13:09 | Outpatient (BNV) | payer MEDICARE, OTHER, SELFPAY | PROVIDERS: Visit Provider Internal Medicine | DX: R00.1 Bradycardia, unspecified (principal) | CPT/HCPCS: 93244 ==

== ENCOUNTER 2024-01-24 10:52 | Outpatient (AMB) | payer MEDICARE, OTHER, SELFPAY ==
[2024-01-24 10:56] VITALS: BP 110/58; PULSE 67; O2SAT 98; BMI 23.7
--- NOTE | 2024-01-24 10:58 | A.OFFVIS_ITS ---
Intake Vital Signs 01/24/24 10:56 Height 5 ft 10 in Weight 165 lb BMI 23.7 BP 110/58 L Blood Pressure Location Lt brachial Position Sitting Pulse 67 Pulse Source Pulse Oximeter Pulse Oximetry (%) 98 Oxygen Delivery Method Room Air Intake Visit Reasons: [facility] G0439 General Partner Required: No Allergies Penicillins Allergy (Intermediate, Verified 01/24/24 11:36) RASH/HIVES Sulfa (Sulfonamide Antibiotics) Allergy (Intermediate, Verified 01/24/24 11:36) RASH/HIVES, hives aspirin Allergy (Verified 01/24/24 11:36) Abdominal Pain Medication List - Last Reconciled 01/24/24 by Leonard Ames MD acetaminophen 1,000 mg PO Q8H PRN amlodipine 10 mg PO DAILY lorazepam 1 mg PO TID PRN 90 days metoprolol succinate ER 50 mg PO DAILY multivitamin 1 tab PO DAILY omega [id number]-fish oil 300-1,000 mg (Fish Oil) 1 cap PO DAILY omeprazole 40 mg PO DAILY@0630 simvastatin 20 mg PO QPM sitagliptin phosphate (Januvia) 100 mg PO DAILY tramadol 50 mg PO BID PRN valsartan 160 mg PO DAILY zolpidem 10 mg PO BEDTIME PRN HPI [facility] G0439 HPI Details Patient comes in today for his Medicare Annual Wellness Exam AND follow up visit States that he feels okay He denies any headaches or dizziness Denies any chest pains, no SOB No nausea/vomiting, no abdominal pain No change in bowel habits noted He did not get any follow up labs done recently as he states that he was told that there were no pending orders in his file when he called up a few days ago to ask if he needed to get any labs done before his appointment today States that his insurance will no longer cover his Zolpidem IPPE/AWV: c/o of Annual Wellness Visit, subsequent visit. Medical / Social History Reviewed Past Medical History Yes . [facility] of Care / Care Team list updated Yes . Surgical/Hospitalization History Yes . Current Medications (including OTC and supplements) Yes . Family History Yes . Tobacco Control form Yes . AUDIT-C (Alcohol use) form Yes . Illicit drug use in Social History Yes . Current diagnosis of depression? No Appropriate PHQ2/PHQ9 completed Yes . Data entered by Rail Detector Car Operator and reviewed by provider Home Safety Throw rugs? No Grab bars? No Raised toilet seats? No Working smoke detectors? Yes Working carbon monoxide detectors? Yes Data entered by Rail Detector Car Operator and reviewed by provider Activities of Daily Living (ADLs) Difficulty bathing or showering? No Difficulty dressing? No Difficulty using the toilet? No Difficulty getting in and out of bed? No Difficulty walking? No Receives help from another person with any of the above tasks? No Instrumental Activities of Daily Living (IADLs) Uses the telephone without help Gets to places out of walking distance without help Goes shopping for groceries without help Prepares own meals without help Does own minor home maintenance without help Does own laundry without help Does own housework without help Manages own money without help Currently takes medications? Yes Takes medication without help End-of-Life Planning Discussed advance directive Yes Advance directive on file Discussed wishes expressed in advance directive agreed to following patient's wishes Fall Risk: Fall History Have you had any falls with injury in the past year? No . Have you had two or more falls in the past year? No . Fall Risk Assessment: No falls in the past year . HRA filled out by the patient, reviewed by Provider and scanned. [facility] Medical History Paroxysmal atrial fibrillation Erectile dysfunction Screening for colon cancer Essential hypertension Paroxysmal atrial flutter Insomnia Pyelonephritis Psoriasis Vitamin D deficiency Arthralgia Neuropathy GERD without esophagitis Gastrointestinal hemorrhage Anemia Pure hypercholesterolemia Benign essential hypertension Diabetes mellitus Atrial flutter Surgical History History of colonoscopy S/P ablation of atrial flutter History of inguinal hernia repair History of left hip replacement Family History Father Pneumonia Mother Myocardial infarction Son No problems noted. Daughter No problems noted. Social History Household Members: None Housing: House Alcohol intake: current Alcohol intake frequency: 0-2 drinks per day Alcohol type: beer and hard liquor Comment: low fall Patient Tobacco Use Status: Never used Tobacco Tobacco use type: Cigarette e-Cigarette/Vaping Use: Never Used Second Hand Smoke Exposure: Yes Advance Directives Date on File: 08/26/00 service: Yes Current occupational status: retired Cognitive needs: No Hearing needs: Yes Vision needs: Yes Questionnaire Medicare Wellness Checkup What is your age?: 82 or older What gender do you identify with?: male During the past 4 weeks, how much have you been bothered by emotional problems such as feeling anxious, depressed, irritable, sad or downhearted, and blue?: slightly During the past 4 weeks, has your physical & emotional health limited your social activities with family, friends, neighbors, or groups?: not at all During the past 4 weeks, how much bodily pain have you generally had?: very mild pain During the past 4 weeks, was someone available to help you if you needed & wanted help?: no, not at all During the past 4 weeks, what was the hardest physical activity you could do for at least 2 minutes?: heavy Can you get to places out of walking distance without help? (For eg., can you travel alone on buses, taxis or drive your car?): Yes Can you go shopping for groceries or clothes without someone's help?: Yes Can you prepare your own meals?: Yes Can you do your housework without help?: Yes Because of any health problems, do you need the help of another person with your personal care needs such as eating, bathing, dressing or getting around the house?: No Can you handle your own money without help?: Yes During the past 4 weeks, how would you rate your health in general?: very good During the past 4 weeks how have things been going for you?: very well; could hardly better Are you having difficulties driving your car?: no Do you always fasten your seat belt when you are in a car?: yes, usually During past 4 weeks, have you been bothered by the following: never: Falling or dizzy when standing up, Sexual problems?, Trouble eating well?, Teeth or denture problems? and Problems using the telephone? and seldom: Tiredness or fatigue? Have you fallen 2 or more times in the past year?: No Are you afraid of falling?: Yes Are you a smoker?: no During the past 4 weeks, how many drinks of wine, beer, or other alcoholic beverages did you have?: 1 drink or less per week Do you exercise for about 20 minutes 3 or more times a week?: yes, most of the time Have you been given information to help with the following?: no: Hazards in your house that might hurt you? and no: Keeping track of your medications? How often do you have trouble taking medicines the way you have been told to take them?: I always take medicine as prescribed How confident are you that you can control & manage most of your health problems?: very confident What is your race?: White Mini Mental State Exam (MMSE) Orientation What is the (year) (season) (date) (day) (month)?: year, season, date, day and month Where are we (state) (county) (town or city) (hospital) (floor)?: state, county, town or city, hospital/clinic and floor Score Score: 10 Activity of Daily Living Bathing - sponge bath, tub bath or shower: receives no assistance (gets in/out by self, if usual bathing means Dressing - getting clothes from closets & drawers, including inner/outer garments & fasteners.: gets clothes & gets completely dressed without help Toileting - going to the 'toilet room' for urine/bowel elimination & cleaning self/arranging clothes: goes to toilet room, cleans self, arranges clothes without help Transfer: moves in & out of bed and chair without help (may use support object) Continence: controls urination/bowel movements completely by self Feeding: feeds self without help Total Score: 0 Information obtained from: patient Using telephone: independent Traveling: independent Shopping: independent Preparing meals: independent Housework: independent Taking medicine: independent Managing money: independent PHQ-9 Over the last 2 weeks, how often have you been bothered by any of the following problems? 1. Little interest or pleasure in doing things: not at all 2. Feeling down, depressed, or hopeless: several days 3. Trouble falling or staying asleep, or sleeping too much: not at all 4. Feeling tired or having little energy: not at all 5. Poor appetite or overeating: not at all 6. Feeling bad about yourself - or that you are a failure or have let yourself or your family down: not at all 7. Trouble concentrating on things, such as reading the newspaper or watching television: not at all 8. Moving or speaking so slowly that other people could have noticed. Or the opposite - being so fidgety or restless that you have been moving around a lot m ore than usual: not at all 9. Thoughts that you would be better off or of hurting yourself in some way: not at all Total score: 1 Depression Screening Interpretation: Negative Depression Screening Done: Yes 38318 - PHQ-9 Billing: Yes Source: Developed by Drs. Contreras David, Violeta Philip, Brandon Sanders and colleagues, with an educational vanessa from [employer]. Review of Systems Const Denies chills, Denies difficulty sleeping (Zolpidem helps), Denies fatigue, Denies fever(s) and Denies headache(s) ENT Denies dysphagia, Denies dizziness, Denies otalgia, Denies headache(s), Denies neck pain, Denies odynophagia and Denies sore throat Card Denies chest pain, Denies palpitations and Denies dyspnea Resp Denies chest congestion, Reports cough (occasional, non-productive), Denies dyspnea and Denies wheezing GI Denies abdominal pain, Denies hematochezia, Denies constipation, Denies dysphagia, Denies heartburn, Denies diarrhea, Denies nausea and Denies odynophagia Denies difficulty urinating, Denies dysuria, Denies nocturia and Denies urinary frequency Musc Reports back pain (over the right sciatic/SI joint area, on and off), Reports arthralgias (right knee ), Denies neck pain and Reports stiffness Skin/Breast Denies rash Neuro Denies dizziness and Denies headache(s) Endo Denies fatigue and Denies palpitations Aller/Immun Denies wheezing Physical Exam Vital Signs: Last Vital Signs Pulse 67 01/24/24 10:56 BP 110/58 L 01/24/24 10:56 Pulse Ox 98 01/24/24 10:56 Oxygen Delivery Method Room Air 01/24/24 10:56 BMI result Body Mass Index 23.7 IPPE/AWV: Balance Romberg Yes . Tandem walk No . Walk and Turn No . Rise from sit to stand Yes . Vision Corrective lens Yes Vision screen pass Hearing Whisper test pass . Urinary incont. no. EKG Not clinically necessary. Const General: no acute distress and alert HEENT Ears: TM's normal bilaterally and EAC's normal Throat: Yes posterior oropharynx normal and Yes tonsils normal Neck Neck: Yes no lymphadenopathy and Yes supple Thyroid: Thyroid normal Resp Auscultation: clear to auscultation bilaterally, no rales and no wheezes Cardio Rate: regular rate Rhythm: regular rhythm Heart sounds: no murmurs GI Palpation (GI): Soft to palpation, nontender and no guarding Auscultation: normal bowel sounds General: Yes no CVA tenderness Back/Spine/Pelvis Back: no CVA tenderness Thoracic/Lumbar Spine: lumbar spinal tenderness (mild) Skin Rashes: no rashes Extrem General: Yes no clubbing, cyanosis or edema Assessment & Plan Assessment & Plan (1) Medicare annual wellness visit, subsequent: Code(s): Z00.00 - Encounter for general adult medical examination without abnormal find ings Plan: HRA form discussed and completed; form will be scanned into patient's chart (2) Paroxysmal atrial fibrillation: Comment: S/P successful ablation by Dr. Ananth Dutton at [facility] in [place] on 01/12/2019 Code(s): I48.0 - Paroxysmal atrial fibrillation Plan: S/P atrial flutter ablation in 2019 with no recurrence; he is currently OFF anticoagulation He is currently in sinus rhythm Follow up with cardiology as scheduled (3) PAC (premature atrial contraction): Code(s): I49.1 - Atrial premature depolarization Plan: Continue Metoprolol ER 50 mg QD Follow up with cardiology as scheduled (4) Diabetes mellitus: Code(s): E11.9 - Type 2 diabetes mellitus without complications Qualifiers: Diabetes mellitus type: type 2 Diabetes mellitus residential insulin use: without residential use Diabetes mellitus complication status: without complication Qualified Code(s): E11.9 - Type 2 diabetes mellitus without complications Plan: His HgbA1c was at 5.8% when last checked in May 2023 - goal is HgbA1c of at least < 7.0% Reinforced diabetic diet Continue Metformin 500 mg 2 tablets in AM and 1 tablet in PM (BID) and Januvia 100 mg QD (5) Benign essential hypertension: Code(s): I10 - Essential (primary) hypertension Plan: Reinforced low sodium diet - goal is systolic BP of at least 140 to 150 mm Continue Amlodipine 10 mg QD, Losartan 100 mg QD and Metoprolol ER 50 mg QD (6) Pure hypercholesterolemia: Code(s): E78.00 - Pure hypercholesterolemia, unspecified Plan: Will have patient get his follow up labs done CARIDAD - new orders placed Reinforced low cholesterol diet Continue Simvastatin 20 mg QD Will recheck his labs and fasting lipids in 4 months for follow up (7) Anemia: Code(s): D64.9 - Anemia, unspecified Qualifiers: Anemia type: unspecified type Qualified Code(s): D64.9 - Anemia, unspecified Plan: His H/H was at 8.4/30.2 when last checked in August 2023 Will send him for repeat labs CARIDAD and will continue to monitor his CBC regularly Iron tablets were discontinued a few months ago due to GI side effects (8) Gastrointestinal hemorrhage: Code(s): K92.2 - Gastrointestinal hemorrhage, unspecified Qualifiers: GI bleed type/associated pathology: unspecified gastrointestinal hemorrhage type Qualified Code(s): K92.2 - Gastrointestinal hemorrhage, unspecified Plan: No recurrence - were most likely from left diverticular bleeding (past colonoscopies revealed the presence of sigmoid and left-sided diverticulosis) Follow up with GI as scheduled (9) GERD without esophagitis: Code(s): K21.9 - Gastro-esophageal reflux disease without esophagitis Plan: Dietary restrictions reinforced Continue Omeprazole 20 mg QD (10) Neuropathy: Code(s): G62.9 - Polyneuropathy, unspecified Plan: Continue Gabapentin 400 mg BID - his symptoms have been adequately controlled on his current Rx (11) Arthralgia: Code(s): M25.50 - Pain in unspecified joint Qualifiers: Joint pain location: unspecified Qualified Code(s): M25.50 - Pain in unspecified joint Plan: Continue Tramadol 50 mg 1 to 2 times a day PRN for pain (12) Vitamin D deficiency: Code(s): E55.9 - Vitamin D deficiency, unspecified Plan: Continue Vitamin D3 1000 units QD (13) Erectile dysfunction: Code(s): N52.9 - Male erectile dysfunction, unspecified Qualifiers: Erectile dysfunction type: unspecified Qualified Code(s): N52.9 - Male erectile dysfunction, unspecified Plan: Continue Tadalafil 20 mg QD PRN (14) Psoriasis: Code(s): L40.9 - Psoriasis, unspecified Plan: Continue Clobetasol ointment 0.05% apply to affected areas BID PRN (15) Insomnia: Code(s): G47.00 - Insomnia, unspecified Qualifiers: Insomnia type: unspecified Qualified Code(s): G47.00 - Insomnia, unspecified Plan: Sleep hygiene reinforced He was doing well on Zolpidem 10 mg Q HS PRN in the past but his insurance will not cover the Rx any longer Will try him on Doxepin 6 mg Q HS PRN Plan Follow up in 4 months Orders: Orders Complete Blood Count Auto Diff 01/24/24 D64.9 - Anemia, unspecified Comprehensive [place]. Panel Fast 01/24/24 E78.00 - Pure hypercholesterolemia, unspecified Lipid Panel 01/24/24 E78.00 - Pure hypercholesterolemia, unspecified Microalbumin, Random (w Creat) 01/24/24 E11.9 - Type 2 diabetes mellitus without complications UA CC w/rflx Micro + Cult 01/24/24 R30.0 - Dysuria Vitamin D 25-OH Total 01/24/24 E55.9 - Vitamin D deficiency, unspecified IRON PROFILE 01/24/24 D50.9 - Iron deficiency anemia, unspecified Hemoglobin A1c 01/24/24 E11.9 - Type 2 diabetes mellitus without complications TSH reflex Free T4 01/24/24 E78.00 - Pure hypercholesterolemia, unspecified Vitamin B12 and Folate 01/24/24 E53.8 - Deficiency of other specified B group vitamins Medications: New doxepin 6 mg PO BEDTIME 30 days PRN 30 tabs 3RF insomnia Quality Reporting (2019) Depression/Bipolar (159/160/161/177) PHQ-9: Total score: 1 Coding Level of Care Code Medicare Subsequent (G0439) Est Pt Level 4 (32656) Diagnoses Medicare annual wellness visit, subsequent Z00.00 Paroxysmal atrial fibrillation I48.0 PAC (premature atrial contraction) I49.1 Type 2 diabetes mellitus without complication, without long-term current use of insulin E11.9 Diabetes mellitus type: type 2 Diabetes mellitus residential insulin use: without residential use Diabetes mellitus complication status: without complication Benign essential hypertension I10 Pure hypercholesterolemia E78.00 Anemia, unspecified type D64.9 Anemia type: unspecified type Gastrointestinal hemorrhage, unspecified gastrointestinal hemorrhage type K92.2 GI bleed type/associated pathology: unspecified gastrointestinal hemorrhage type GERD without esophagitis K21.9 Neuropathy G62.9 Arthralgia, unspecified joint M25.50 Joint pain location: unspecified Vitamin D deficiency E55.9 Erectile dysfunction, unspecified erectile dysfunction type N52.9 Erectile dysfunction type: unspecified Psoriasis L40.9 Insomnia, unspecified type G47.00 Insomnia type: unspecified
== END 2024-01-24 11:52 | disposition home or self-care (01) ==
PROVIDERS: Visit Provider Internal Medicine
DX: Z00.00 Encounter for general adult medical examination without abnormal findings (principal); I48.0 Paroxysmal atrial fibrillation; I49.1 Atrial premature depolarization; E11.42 Type 2 diabetes mellitus with diabetic polyneuropathy; I10 Essential (primary) hypertension; E78.00 Pure hypercholesterolemia, unspecified; D64.9 Anemia, unspecified; K92.2 Gastrointestinal hemorrhage, unspecified; K21.9 Gastro-esophageal reflux disease without esophagitis; M25.50 Pain in unspecified joint; E55.9 Vitamin D deficiency, unspecified; N52.9 Male erectile dysfunction, unspecified
CPT/HCPCS: 99214; G0439

== ENCOUNTER 2024-01-27 07:33 | Outpatient (REF) | payer MEDICARE, OTHER, SELFPAY ==
[2024-01-27 09:51] LABS: MANUAL DIFF FLAG NO
[2024-01-27 09:55] LABS: Basophils Absolute Auto 0.1 X10*3/uL (0.0-0.2); Basophils Percent Auto 1.2 % (0-2); Eosinophils Absolute Auto 0.1 X10*3/uL (0.0-0.4); Eosinophils Percent Auto 2.4 % (0-4); Hematocrit 28.5 % (42.0-52.0); Hemoglobin 9.8 g/dl (14.0-18.0); Imm Gran Abs Auto 0.04 X10*3/uL (0.00-0.03); Imm Gran Pct Auto 0.7 % (0.0-0.4); Lymphocytes Absolute Auto 1.3 X10*3/uL (1.2-4.9); Lymphocytes Percent Auto 21.7 % (20-40); Mean Corpuscular HGB Conc 34.4 g/dl (31.0-36.0); Mean Corpuscular Volume 107.5 fL (80.0-98.0); Mean Platelet Volume 11.3 fL (9.4-12.4); Monocytes Absolute Auto 0.7 X10*3/uL (0.1-1.2); Monocytes Percent Auto 11.2 % (2-11); NRBC Pct Auto 0.9 /100WBC (0.0-0.2); Neutrophils Absolute Auto 3.7 x10*3/uL (2.0-8.3); Neutrophils Percent Auto 62.8 % (45-73); Platelet Count 276 X10*3/uL (160-400); Red Blood Count 2.65 X10*6/uL (4.60-5.80); Red Cell Distribution Width 14.6 % (11.0-16.0); White Blood Count 5.8 X10*3/uL (4.8-10.8)
[2024-01-27 10:03] LABS: Estimated Average Glucose 123 mg/dL; Hemoglobin A1c % 5.9 % (<6.0)
[2024-01-27 10:18] LABS: Alanine Aminotransferase 11 U/L (0-40); Albumin Level 4.1 g/dL (3.5-5.0); Alkaline Phosphatase 54 U/L (39-117); Anion Gap 13 (12-20); Aspartate Amino Transferase 15 U/L (5-37); Bilirubin Total 0.9 mg/dL (0.0-1.0); Blood Urea Nitrogen 13 mg/dL (9-16); Calcium 9.8 mg/dL (8.4-10.2); Carbon Dioxide 24 mmol/L (22-29); Chloride 106 mmol/L (96-108); Cholesterol 107 mg/dL (<200); Estimated Glomerular Filt Rate 59; Glucose Fasting 148 mg/dL (60-99); HDL Cholesterol 42 mg/dL (>40); Iron 214 mcg/dL (45-160); LDL Cholesterol Calculated 55 mg/dL (<100); Percent Iron Saturation 90 % (15-50); Potassium 4.6 mmol/L (3.3-5.1); Sodium 138 mmol/L (135-145); Total Iron Binding Capacity 239 mcg/dL (228-428); Total Protein 7.3 g/dL (6.5-8.0); Triglycerides 54 mg/dL (<150); Unsaturated Iron Binding < 25 ug/dL
[2024-01-27 10:37] LABS: TSH reflex Free T4 1.13 uIU/mL (0.32-4.0); Vitamin D 25-OH Total 44.1 ng/mL (>30)
[2024-01-27 10:57] LABS: Appearance Urine Turbid; Color Urine Yellow; Glucose Urine UA Negative (Negative); Leukocyte Esterase Urine Large (3+) (Negative); Nitrite Urine Negative (Negative); PH 5.5 (5.0-9.0); Specific Gravity - Urine 1.015 (1.005-1.025); UMIC TRIGGER UACC YES; Urine Blood Moderate (2+) (Negative); Urine Ketones Negative (Negative); Urine Protein 30 (1+) mg/dL (Neg-Trace)
[2024-01-27 11:16] LABS: Bacteria Urine 4+ (None Seen); Hyaline Casts Urine 0-2 /LPF (0-2); RBC Urine 0-2 /HPF (0-2); Squamous Epithelial Cell Urine 0-2 /HPF (0-2); UACC Culture Trigger YES; WBC Urine >50 /HPF (0-5)
[2024-01-27 11:48] LABS: Folate 14.8 ng/mL (> or = 4.0); Vitamin B12 756 pg/mL (200-900)
[2024-01-27 12:16] LABS: Creatinine Urine 130.86 mg/dL
== END 2024-01-27 07:34 | disposition home or self-care (01) ==
LOC: HO.10HDL 07:33
PROVIDERS: Visit Provider Internal Medicine
DX: E78.00 Pure hypercholesterolemia, unspecified (principal); E55.9 Vitamin D deficiency, unspecified; E11.9 Type 2 diabetes mellitus without complications; E53.8 Deficiency of other specified B group vitamins; D50.9 Iron deficiency anemia, unspecified; R30.0 Dysuria
CPT/HCPCS: 36415; 80053; 80061; 81001; 82043; 82306; 82570; 82607; 82746; 83036; 83540; 84443; 85025; 87086; 87088; 87186

== ENCOUNTER 2024-05-20 07:35 | Outpatient (REF) | payer MEDICARE, OTHER, SELFPAY ==
[2024-05-20 09:58] LABS: MANUAL DIFF FLAG NO
[2024-05-20 10:05] LABS: Basophils Absolute Auto 0.1 X10*3/uL (0.0-0.2); Basophils Percent Auto 1.1 % (0-2); Eosinophils Absolute Auto 0.1 X10*3/uL (0.0-0.4); Eosinophils Percent Auto 2.4 % (0-4); Hematocrit 29.1 % (42.0-52.0); Imm Gran Abs Auto 0.02 X10*3/uL (0.00-0.03); Imm Gran Pct Auto 0.4 % (0.0-0.4); Lymphocytes Absolute Auto 1.4 X10*3/uL (1.2-4.9); Mean Corpuscular HGB Conc 34.4 g/dl (31.0-36.0); Mean Corpuscular Hemoglobin 37.3 pg (27.0-33.0); Mean Corpuscular Volume 108.6 fL (80.0-98.0); Mean Platelet Volume 11.8 fL (9.4-12.4); Monocytes Absolute Auto 0.7 X10*3/uL (0.1-1.2); Monocytes Percent Auto 13.4 % (2-11); Neutrophils Absolute Auto 3.2 x10*3/uL (2.0-8.3); Neutrophils Percent Auto 57.7 % (45-73); Platelet Count 249 X10*3/uL (160-400); Red Blood Count 2.68 X10*6/uL (4.60-5.80); Red Cell Distribution Width 13.7 % (11.0-16.0); White Blood Count 5.5 X10*3/uL (4.8-10.8)
[2024-05-20 10:15] LABS: Estimated Average Glucose 123 mg/dL; Hemoglobin A1c % 5.9 % (<6.0)
[2024-05-20 10:25] LABS: Alanine Aminotransferase 12 U/L (0-40); Albumin Level 4.2 g/dL (3.5-5.0); Alkaline Phosphatase 43 U/L (39-117); Anion Gap 9 (12-20); Aspartate Amino Transferase 15 U/L (5-37); Bilirubin Total 0.9 mg/dL (0.0-1.0); Blood Urea Nitrogen 12 mg/dL (9-16); Calcium 9.4 mg/dL (8.4-10.2); Carbon Dioxide 28 mmol/L (22-29); Chloride 107 mmol/L (96-108); Cholesterol 115 mg/dL (<200); Estimated Glomerular Filt Rate > 60; Glucose Fasting 135 mg/dL (60-99); HDL Cholesterol 51 mg/dL (>40); LDL Cholesterol Calculated 54 mg/dL (<100); Potassium 4.2 mmol/L (3.3-5.1); Sodium 140 mmol/L (135-145); Total Protein 7.2 g/dL (6.5-8.0); Triglycerides 50 mg/dL (<150)
[2024-05-20 10:41] LABS: Ferritin 213 ng/mL (20-250); Vitamin D 25-OH Total 42.9 ng/mL (>30)
[2024-05-20 10:50] LABS: Folate 14.9 ng/mL (> or = 4.0); Vitamin B12 1033 pg/mL (200-900)
[2024-05-20 13:12] LABS: Appearance Urine Turbid; Color Urine Yellow; Glucose Urine UA Negative (Negative); Leukocyte Esterase Urine Large (3+) (Negative); Nitrite Urine Negative (Negative); PH 6.5 (5.0-9.0); Specific Gravity - Urine 1.015 (1.005-1.025); UMIC TRIGGER UACC YES; Urine Blood Small (1+) (Negative); Urine Ketones Negative (Negative); Urine Protein 30 (1+) mg/dL (Neg-Trace)
[2024-05-20 13:22] LABS: Bacteria Urine 4+ (None Seen); Hyaline Casts Urine 0-2 /LPF (0-2); Squamous Epithelial Cell Urine 0-2 /HPF (0-2); UACC Culture Trigger YES; WBC Clumps Urine Present; WBC Urine >50 /HPF (0-5)
[2024-05-20 14:39] LABS: Creatinine Urine 102.76 mg/dL; Microalbum/Creatinine Ratio Ur 66.1 ug/mg cr (<30)
== END 2024-05-20 07:36 | disposition home or self-care (01) ==
LOC: HO.10HDL 07:35
PROVIDERS: Visit Provider Internal Medicine
DX: E11.9 Type 2 diabetes mellitus without complications (principal); E78.00 Pure hypercholesterolemia, unspecified; D64.9 Anemia, unspecified; E53.8 Deficiency of other specified B group vitamins; E55.9 Vitamin D deficiency, unspecified; R82.90 Unspecified abnormal findings in urine
CPT/HCPCS: 36415; 80053; 80061; 81001; 82043; 82306; 82570; 82607; 82728; 82746; 83036; 84443; 85025; 87086; 87088; 87186

== ENCOUNTER 2024-05-28 10:41 | Outpatient (AMB) | payer MEDICARE, OTHER, SELFPAY ==
[2024-05-28 10:51] VITALS: BP 140/62; PULSE 67; O2SAT 98; BMI 23.9
--- NOTE | 2024-05-28 10:51 | A.OFFPC_ITS ---
Vital Signs 05/28/24 10:51 Height 5 ft 10 in Weight 166 lb 4 oz BMI 23.9 BP 140/62 H Blood Pressure Location Lt brachial Position Sitting Pulse 67 Pulse Source Pulse Oximeter Pulse Oximetry (%) 98 Oxygen Delivery Method Room Air Intake Visit Reasons: 4mof\u Roll Tender Required: No Accompanied by: Self / Same As Patient Allergies Penicillins Allergy (Intermediate, Verified 05/28/24 11:17) RASH/HIVES Sulfa (Sulfonamide Antibiotics) Allergy (Intermediate, Verified 05/28/24 11:17) RASH/HIVES, hives aspirin Allergy (Verified 05/28/24 11:17) Abdominal Pain Medication List - Last Reconciled 05/28/24 by Leonard Ames MD acetaminophen 1,000 mg PO Q8H PRN amlodipine 10 mg PO DAILY doxepin 6 mg PO BEDTIME PRN 30 days lorazepam 1 mg PO TID PRN 90 days metoprolol succinate ER 50 mg PO DAILY multivitamin 1 tab PO DAILY omega 6-som-lpe-fish oil 300-1,000 mg (Fish Oil) 1 cap PO DAILY omeprazole 40 mg PO DAILY@0630 simvastatin 20 mg PO QPM sitagliptin phosphate (Januvia) 100 mg PO DAILY tramadol 50 mg PO BID PRN valsartan 160 mg PO DAILY zolpidem 10 mg PO BEDTIME PRN Tobacco use date assessed: 05/28/24 Fall risk assessment: No Falls in past year Last assessed Fall Risk: 05/28/24 Dental Screening Dental Screen Date: 05/28/24 Did you have a dental visit in the last 12 months?: Yes Did you have a dental problem in the last 6 months where you did not have access to dental care?: No Was dental information given to patient?: Patient has dentist HPI 4mof\u HPI Details Patient comes in today for his follow up visit States that he feels okay He denies any headaches or dizziness Denies any chest pains, no SOB No nausea/vomiting, no abdominal pain No change in bowel habits noted He had his follow up labs done last week - to discuss his results [facility] Medical History Paroxysmal atrial fibrillation Erectile dysfunction Screening for colon cancer Essential hypertension Paroxysmal atrial flutter Insomnia Pyelonephritis Psoriasis Vitamin D deficiency Arthralgia Neuropathy GERD without esophagitis Gastrointestinal hemorrhage Anemia Pure hypercholesterolemia Benign essential hypertension Diabetes mellitus Atrial flutter Surgical History History of colonoscopy S/P ablation of atrial flutter History of inguinal hernia repair History of left hip replacement Family History Father Pneumonia Mother Myocardial infarction Son No problems noted. Daughter No problems noted. Social History Household Members: None Housing: House Alcohol intake: current Alcohol intake frequency: 0-2 drinks per day Alcohol type: beer and hard liquor Comment: low fall Patient Tobacco Use Status: Never used Tobacco Tobacco use type: Cigarette e-Cigarette/Vaping Use: Never Used Second Hand Smoke Exposure: Yes Advance Directives Date on File: 08/26/00 service: Yes Current occupational status: retired Cognitive needs: No Hearing needs: Yes Vision needs: Yes Questionnaire PHQ-9 Over the last 2 weeks, how often have you been bothered by any of the following problems? 1. Little interest or pleasure in doing things: not at all 2. Feeling down, depressed, or hopeless: several days 3. Trouble falling or staying asleep, or sleeping too much: not at all 4. Feeling tired or having little energy: not at all 5. Poor appetite or overeating: not at all 6. Feeling bad about yourself - or that you are a failure or have let yourself or your family down: not at all 7. Trouble concentrating on things, such as reading the newspaper or watching television: not at all 8. Moving or speaking so slowly that other people could have noticed. Or the opposite - being so fidgety or restless that you have been moving around a lot more than usual: not at all 9. Thoughts that you would be better off or of hurting yourself in some way: not at all Total score: 1 Depression Screening Interpretation: Negative Depression Screening Done: Yes [id number] - PHQ-9 Billing: Yes Source: Developed by Drs. Contreras David, Violeta Philip, Brandon Sanders and colleagues, with an educational vanessa from [employer]. Thrive Questionnaire Date Thrive assessed: 05/28/24 I am a: Patient What is your living situation today?: I have a steady place to live Within the past 12 months, did the food you bought not last and you didn't have the money to get more?: Never true Within the past 12 months, did you worry whether your food would run out before you got money to buy more?: Never true Do you have trouble paying for medicines?: No Do you have trouble getting transportation to medical appointments?: No Do you have trouble paying your heating and electricity bill?: No Do you have trouble taking care of your child, family member or friend?: No Do you have trouble with day-to-day activities such as bathing, preparing meals, shopping, managing finances, etc.?: No Are you currently unemployed and looking for a job?: No Are you interested in more education?: No Please select the resources that you would like help with: None Currently or been in a relationship where the following occur: No concerns reported THRIVE Score: 0 AUDIT C Alcohol Use Questionnaire (AUDIT-C) 1. How often do you have a drink containing alcohol?: 2-4 times a month 2. How many drinks containing alcohol do you have on a typical day when you are drinking?: 1 or 2 3. How often do you have six or more drinks on one occasion?: Never Total Score: 2 Score Reviewed/Action Taken: Yes DEVORAH-7 AMB Questionnaire DEVORAH-7 Date DEVORAH - 7 assessed: 05/28/24 Feeling nervous, anxious, or on edge: 1 = Several days Not being able to stop or control worryin = Not at all Worrying too much about different things: 0 = Not at all Trouble relaxin = Not at all Being so restless that it is hard to sit still: 0 = Not at all Becoming easily annoyed or irritable: 0 = Not at all Feeling afraid as if something awful might happen: 0 = Not at all Total DEVORAH-7 score (0-4 normal; 5-9 mild; 10-14 moderate; 15-21 severe): 1 Source: Developed by Drs. Contreras David, Violeta Philip, Brandon Sanders and colleagues, with an educational vanessa from [employer] work. DEVORAH-7 Assessment Billing DEVORAH-7 Assessment Tool: DEVORAH-7 Assessment 92473 Review of Systems Const Denies chills, Denies difficulty sleeping (Zolpidem helps), Denies fatigue, Denies fever(s) and Denies headache(s) ENT Denies dysphagia, Denies dizziness, Denies otalgia, Denies headache(s), Denies neck pain, Denies odynophagia and Denies sore throat Card Denies chest pain, Denies palpitations and Denies dyspnea Resp Denies chest congestion, Denies cough, Denies dyspnea and Denies wheezing GI Denies abdominal pain, Denies hematochezia, Denies constipation, Denies dysphagia, Denies heartburn, Denies diarrhea, Denies nausea and Denies odynophagia Denies difficulty urinating, Denies dysuria, Denies nocturia and Denies urinary frequency Musc Reports back pain (over the right sciatic/SI joint area, on and off), Reports arthralgias (right knee ), Denies neck pain and Reports stiffness Skin/Breast Denies rash Neuro Denies dizziness and Denies headache(s) Endo Denies fatigue and Denies palpitations Aller/Immun Denies wheezing Physical exam (Primary Care) Vital Signs: Last Vital Signs Pulse 67 05/28/24 10:51 BP 140/62 H 05/28/24 10:51 Pulse Ox 98 05/28/24 10:51 Oxygen Delivery Method Room Air 05/28/24 10:51 BMI result Body Mass Index 23.9 Tobacco/Smoking Status: Tobacco use Status Tobacco use date assessed 05/28/24 05/28/24 10:54 Patient Tobacco Use Status Never used Tobacco 05/28/24 10:54 Tobacco use type Cigarette 05/28/24 10:54 e-Cigarette/Vaping Use Never Used 05/28/24 10:54 PHQ-9: PHQ-9 Score PHQ-9: Total score 1 05/28/24 11:27 Depression Screening Interpretation: Negative Thrive Assessment: Date of Thrive Assessment Date Thrive assessed 05/28/24 05/28/24 10:54 Currently or been in a relationship where the following occur: No concerns reported Const General: no acute distress and alert HENMT Ears: TM's normal bilaterally and EAC's normal Throat: Yes posterior oropharynx normal and Yes tonsils normal (no TP congestion noted) Neck Neck: Yes no lymphadenopathy and Yes supple Resp Auscultation: no crackles, no rales, rhonchi (occasional) throughout and no wheezes Cardio Rate: regular rate Rhythm: regular rhythm Heart sounds: no murmurs GI Palpation (GI): Soft to palpation and nontender Auscultation: normal bowel sounds Back/Spine/Pelvis Sacroiliac joints: on the right tender to palpation Skin Rashes: no rashes Extrem General: Yes no clubbing, cyanosis or edema Right lower extremity: knee Details: tenderness and normal ROM; no swelling Office Procedures Flu Questionnaire Does the patient have a severe egg allergy?: No Immunizations Fluarix Triv [id number] (PF) 45 mcg (15 mcg x 3)/0.5 mL IM syringe Performing Provider: Leonard Ames MD Performing [facility] [place] [facility] Documented (not given) by: ALINA Madsen on 05/28/24 11:27 Reason Not Given: Not Given Results Reviewed Results Reviewed: Laboratory Tests 05/20/24 07:40 WBC 5.5 Hgb 10.0 L Hct 29.1 L Plt Count 249 Sodium 140 Potassium 4.2 Creatinine 1.00 Estimated GFR > 60 Fasting Glucose 135 H Hemoglobin A1c % 5.9 Calcium 9.4 AST 15 ALT 12 Triglycerides 50 Cholesterol 115 LDL Cholesterol, Calc 54 HDL Cholesterol 51 Vitamin B12 1033 H 25-OH Vitamin D Total 42.9 TSH 1.00 Ur Specific [place] 1.015 Urine Protein 30 (1+) H Urine Glucose (UA) Negative Urine Blood Small (1+) H Urine Nitrite Negative Ur Leukocyte Esterase Large (3+) H Microalb/Creat Ratio 66.1 H Coding Level of Care Code Est Pt Level 4 (13536) Diagnoses Type 2 diabetes mellitus without complication, without long-term current use of insulin E11.9 Diabetes mellitus type: type 2 Diabetes mellitus alf insulin use: without alf use Diabetes mellitus complication status: without complication Pure hypercholesterolemia E78.00 Benign essential hypertension I10 Paroxysmal atrial fibrillation I48.0 PAC (premature atrial contraction) I49.1 Anemia, unspecified type D64.9 Anemia type: unspecified type Gastrointestinal hemorrhage, unspecified gastrointestinal hemorrhage type K92.2 GI bleed type/associated pathology: unspecified gastrointestinal hemorrhage type GERD without esophagitis K21.9 Neuropathy G62.9 Arthralgia, unspecified joint M25.50 Joint pain location: unspecified Vitamin D deficiency E55.9 Erectile dysfunction, unspecified erectile dysfunction type N52.9 Erectile dysfunction type: unspecified Psoriasis L40.9 Insomnia, unspecified type G47.00 Insomnia type: unspecified Additional Codes DEVORAH-7 Assessment Billing - DEVORAH-7 Assessment Tool: DEVORAH-7 Assessment 35315 ([id number]) Assessment & Plan Assessment & Plan (1) Diabetes mellitus: Code(s): E11.9 - Type 2 diabetes mellitus without complications Category: Medical Qualifiers: Diabetes mellitus type: type 2 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: without longwall 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 operator use Diabetes mellitus complication status: without complication Qualified Code(s): E11.9 - Type 2 diabetes mellitus without complications Plan: His HgbA1c was at 5.9% on his labs done last week (was also at 5.9% a few months ago in January 2024 and at 5.8% previously in May 2023) - goal is HgbA1c of at least < 7.0% Reinforced diabetic diet Continue Metformin 500 mg 2 tablets in AM and 1 tablet in PM (BID) and Januvia 100 mg QD (2) Pure hypercholesterolemia: Code(s): E78.00 - Pure hypercholesterolemia, unspecified Category: Medical Plan: Results of his labs done last week reviewed and discussed with patient Reinforced low cholesterol diet Continue Simvastatin 20 mg QD Will recheck his labs and fasting lipids in 4 months for follow up (3) Benign essential hypertension: Code(s): I10 - Essential (primary) hypertension Category: Medical Plan: Reinforced low sodium diet - goal is systolic BP of at least 140 to 150 mm Continue Amlodipine 10 mg QD, Losartan 100 mg QD and Metoprolol ER 50 mg QD (4) Paroxysmal atrial fibrillation: Comment: S/P successful ablation by Dr. Ananth Dutton at [facility] in [place] on 01/12/2019 Code(s): I48.0 - Paroxysmal atrial fibrillation Category: Medical Plan: S/P atrial flutter ablation in 2019 with no recurrence; he is currently OFF anticoagulation He is presently in sinus rhythm Follow up with cardiology as scheduled (5) PAC (premature atrial contraction): Code(s): I49.1 - Atrial premature depolarization Category: Medical Plan: Continue Metoprolol ER 50 mg QD Follow up with cardiology as scheduled (6) Anemia: Code(s): D64.9 - Anemia, unspecified Category: Medical Qualifiers: Anemia type: unspecified type Qualified Code(s): D64.9 - Anemia, unspecified Plan: Stable - his H/H was at 10.0/29.1 on his labs done last week His iron tablets were discontinued a few months ago due to GI side effects Will continue to monitor his CBC regularly (7) Gastrointestinal hemorrhage: Code(s): K92.2 - Gastrointestinal hemorrhage, unspecified Category: Medical Qualifiers: GI bleed type/associated pathology: unspecified gastrointestinal hemorrhage type Qualified Code(s): K92.2 - Gastrointestinal hemorrhage, unspecified Plan: No recurrence - were most likely from left diverticular bleeding (past colonoscopies revealed the presence of sigmoid and left-sided diverticulosis) Follow up with GI as scheduled (8) GERD without esophagitis: Code(s): K21.9 - Gastro-esophageal reflux disease without esophagitis Category: Medical Plan: Dietary restrictions reinforced Continue Omeprazole 20 mg QD (9) Neuropathy: Code(s): G62.9 - Polyneuropathy, unspecified Category: Medical Plan: Continue Gabapentin 400 mg BID - his symptoms have been adequately controlled on his current Rx (10) Arthralgia: Code(s): M25.50 - Pain in unspecified joint Category: Medical Qualifiers: Joint pain location: unspecified Qualified Code(s): M25.50 - Pain in unspecified joint Plan: Continue Tramadol 50 mg 1 to 2 times a day PRN for pain (11) Vitamin D deficiency: Code(s): E55.9 - Vitamin D deficiency, unspecified Category: Medical Plan: Continue Vitamin D3 1000 units QD (12) Erectile dysfunction: Code(s): N52.9 - Male erectile dysfunction, unspecified Category: Medical Qualifiers: Erectile dysfunction type: unspecified Qualified Code(s): N52.9 - Male erectile dysfunction, unspecified Plan: Continue Tadalafil 20 mg QD PRN (13) Psoriasis: Code(s): L40.9 - Psoriasis, unspecified Category: Medical Plan: Continue Clobetasol ointment 0.05% apply to affected areas BID PRN (14) Insomnia: Code(s): G47.00 - Insomnia, unspecified Category: Medical Qualifiers: Insomnia type: unspecified Qualified Code(s): G47.00 - Insomnia, unspecified Plan: Sleep hygiene reinforced He was doing well on Zolpidem 10 mg Q HS PRN in the past but his insurance will not cover the Rx any longer We switched him instead to Doxepin 6 mg Q HS PRN at his last visit - patient states that this helps somewhat but not as well as Zolpidem did Plan Patient prefers to get a high-dose flu vaccine (which we do not have in the office) and states that he will go and get his high-dose flu vaccine at his local pharmacy [facility] Follow up in 4 months Orders: Orders Complete Blood Count Auto Diff 4 Months D64.9 - Anemia, unspecified Comprehensive Brogue. Panel Fast 4 Months E78.00 - Pure hypercholesterolemia, unspecified TSH reflex Free T4 4 Months E78.00 - Pure hypercholesterolemia, unspecified UA CC w/rflx Micro + Cult 4 Months R30.0 - Dysuria Vitamin D 25-OH Total 4 Months E55.9 - Vitamin D deficiency, unspecified Influenza [id number] Immunization 05/28/24 Z23 - Encounter for immunization Lipid Panel 4 Months E78.00 - Pure hypercholesterolemia, unspecified Vitamin B12 and Folate 4 Months E53.8 - Deficiency of other specified B group vitamins Hemoglobin A1c 4 Months E11.9 - Type 2 diabetes mellitus without complications
== END 2024-05-28 11:28 | disposition home or self-care (01) ==
PROVIDERS: PCP Internal Medicine; Visit Provider Internal Medicine
DX: E11.9 Type 2 diabetes mellitus without complications (principal); E78.00 Pure hypercholesterolemia, unspecified; I10 Essential (primary) hypertension; I48.0 Paroxysmal atrial fibrillation; I49.1 Atrial premature depolarization; D64.9 Anemia, unspecified; K92.2 Gastrointestinal hemorrhage, unspecified; K21.9 Gastro-esophageal reflux disease without esophagitis; G62.9 Polyneuropathy, unspecified; M25.50 Pain in unspecified joint; E55.9 Vitamin D deficiency, unspecified; N52.9 Male erectile dysfunction, unspecified; L40.9 Psoriasis, unspecified; G47.00 Insomnia, unspecified

== ENCOUNTER → 2024-05-28 10:41 | Outpatient (BNVA) | payer MEDICARE, OTHER, SELFPAY | PROVIDERS: PCP Internal Medicine; Visit Provider Internal Medicine | DX: E11.9 Type 2 diabetes mellitus without complications (principal); E78.00 Pure hypercholesterolemia, unspecified; I10 Essential (primary) hypertension; I48.0 Paroxysmal atrial fibrillation; I49.1 Atrial premature depolarization; D64.9 Anemia, unspecified; K92.2 Gastrointestinal hemorrhage, unspecified; K21.9 Gastro-esophageal reflux disease without esophagitis; G62.9 Polyneuropathy, unspecified; M25.50 Pain in unspecified joint; E55.9 Vitamin D deficiency, unspecified; N52.9 Male erectile dysfunction, unspecified; L40.9 Psoriasis, unspecified; G47.00 Insomnia, unspecified | CPT/HCPCS: 90471; 96127; 99212 ==

== ENCOUNTER 2024-09-28 10:46 | Outpatient (AMB) | payer MEDICARE, OTHER, SELFPAY ==
--- NOTE | 2024-09-28 11:23 | MHC.PC.OV ---
Vital Signs 09/28/24 11:25 Height 5 ft 10 in Weight 163 lb 4 oz BMI 23.4 BP 130/66 Blood Pressure Location Lt brachial Position Sitting Pulse 78 Pulse Source Pulse Oximeter Temp 97.3 F Temp Source Skin Pulse Oximetry (%) 98 Oxygen Delivery Method Room Air Intake Visit Reasons: DM, hyperlipidemia, HTN, anemia Intake Note: Patient is here to follow up on DM, HLD, HTN. Anemia. Head Machine Feeder Required: No Drop Press Hand: Not Required per policy Accompanied by: Self / Same As Patient Allergies Penicillins Allergy (Intermediate, Verified 09/28/24 11:45) RASH/HIVES Sulfa (Sulfonamide Antibiotics) Allergy (Intermediate, Verified 09/28/24 11:45) RASH/HIVES, hives aspirin Allergy (Verified 09/28/24 11:45) Abdominal Pain Medication List - Last Reconciled 09/28/24 by Leonard Ames MD acetaminophen 1,000 mg PO Q8H PRN amlodipine 10 mg PO DAILY doxepin 6 mg PO BEDTIME PRN 90 days lorazepam 1 mg PO TID PRN 90 days metoprolol succinate ER 50 mg PO DAILY multivitamin 1 tab PO DAILY omega 4-vzc-hxf-fish oil 300-1,000 mg (Fish Oil) 1 cap PO DAILY omeprazole 40 mg PO DAILY@0630 simvastatin 20 mg PO QPM sitagliptin phosphate (Januvia) 100 mg PO DAILY tramadol 50 mg PO BID PRN valsartan 160 mg PO DAILY 90 days zolpidem 10 mg PO BEDTIME PRN Tobacco use date assessed: 09/28/24 Fall risk assessment: 1 Fall in past year Last assessed Fall Risk: 09/28/24 Dental Screening Dental Screen Date: 09/28/24 Did you have a dental visit in the last 12 months?: Yes Did you have a dental problem in the last 6 months where you did not have access to dental care?: No Was dental information given to patient?: Patient has dentist HPI DM, hyperlipidemia, HTN, anemia HPI Details Patient comes in today for his follow up visit States that he feels okay He denies any headaches or dizziness Denies any chest pains, no SOB No nausea/vomiting, no abdominal pain No change in bowel habits noted States that he's had some itchy rash on his left middle finger for a couple of weeks now He has been applying some OTC skin lotion like Eucerin on the affected finger for a while now but it does not seem to be helping as the rash has gotten worse and now affects the entire finger He was not able to get his follow up labs done prior to his appointment today [facility] Medical History Paroxysmal atrial fibrillation Erectile dysfunction Screening for colon cancer Essential hypertension Paroxysmal atrial flutter Insomnia Pyelonephritis Psoriasis Vitamin D deficiency Arthralgia Neuropathy GERD without esophagitis Gastrointestinal hemorrhage Anemia Pure hypercholesterolemia Benign essential hypertension Diabetes mellitus Atrial flutter Surgical History History of colonoscopy S/P ablation of atrial flutter History of inguinal hernia repair History of left hip replacement Family History Father Pneumonia Mother Myocardial infarction Son No problems noted. Daughter No problems noted. Social History Household Members: None Housing: House Alcohol intake: current Alcohol intake frequency: 0-2 drinks per day Alcohol type: beer and hard liquor Comment: low fall Patient Tobacco Use Status: Never used Tobacco Tobacco use type: Cigarette e-Cigarette/Vaping Use: Never Used Second Hand Smoke Exposure: Yes Advance Directives Date on File: 08/26/00 service: Yes Current occupational status: retired Cognitive needs: No Hearing needs: Yes Vision needs: Yes (Glasses) Questionnaire PHQ-9 Over the last 2 weeks, how often have you been bothered by any of the following problems? 1. Little interest or pleasure in doing things: not at all 2. Feeling down, depressed, or hopeless: not at all 3. Trouble falling or staying asleep, or sleeping too much: not at all 4. Feeling tired or having little energy: not at all 5. Poor appetite or overeating: not at all 6. Feeling bad about yourself - or that you are a failure or have let yourself or your family down: not at all 7. Trouble concentrating on things, such as reading the newspaper or watching television: not at all 8. Moving or speaking so slowly that other people could have noticed. Or the opposite - being so fidgety or restless that you have been moving around a lot more than usual: not at all 9. Thoughts that you would be better off or of hurting yourself in some way: not at all Total score: 0 Depression Screening Interpretation: Negative Depression Screening Done: Yes 69838 - PHQ-9 Billing: Yes Source: Developed by Drs. Contreras David, Violeta Philip, Brandon Sanedrs and colleagues, with an educational vanessa from [employer]. Thrive Questionnaire Date Thrive assessed: 09/28/24 I am a: Patient What is your living situation today?: I have a steady place to live Within the past 12 months, did the food you bought not last and you didn't have the money to get more?: Never true Within the past 12 months, did you worry whether your food would run out before you got money to buy more?: Never true Do you have trouble paying for medicines?: No Do you have trouble getting transportation to medical appointments?: No Do you have trouble paying your heating and electricity bill?: No Do you have trouble taking care of your child, family member or friend?: No Do you have trouble with day-to-day activities such as bathing, preparing meals, shopping, managing finances, etc.?: No Are you currently unemployed and looking for a job?: No Are you interested in more education?: No Please select the resources that you would like help with: None Currently or been in a relationship where the following occur: No concerns reported THRIVE Score: 0 AUDIT C Alcohol Use Questionnaire (AUDIT-C) 1. How often do you have a drink containing alcohol?: Monthly or less 2. How many drinks containing alcohol do you have on a typical day when you are drinking?: 1 or 2 3. How often do you have six or more drinks on one occasion?: Never Total Score: 1 Score Reviewed/Action Taken: Yes DEVORAH-7 AMB Questionnaire DEVORAH-7 Date DEVORAH - 7 assessed: 09/28/24 Feeling nervous, anxious, or on edge: 0 = Not at all Not being able to stop or control worryin = Not at all Worrying too much about different things: 0 = Not at all Trouble relaxin = Not at all Being so restless that it is hard to sit still: 0 = Not at all Becoming easily annoyed or irritable: 0 = Not at all Feeling afraid as if something awful might happen: 0 = Not at all Total DEVORAH-7 score (0-4 normal; 5-9 mild; 10-14 moderate; 15-21 severe): 0 Source: Developed by Drs. Contreras David, Violeta Philip, Brandon Sanders and colleagues, with an educational vanessa from [employer]. Review of Systems Const Denies chills, Denies difficulty sleeping (Zolpidem helps), Denies fatigue, Denies fever(s) and Denies headache(s) ENT Denies dysphagia, Denies dizziness, Denies otalgia, Denies headache(s), Denies neck pain, Denies odynophagia and Denies sore throat Card Denies chest pain, Denies palpitations and Denies dyspnea Resp Denies chest congestion, Denies cough and Denies dyspnea GI Denies abdominal pain, Denies hematochezia, Denies constipation, Denies dysphagia, Denies heartburn, Denies diarrhea, Denies nausea and Denies odynophagia Denies difficulty urinating, Denies dysuria, Denies nocturia and Denies urinary frequency Musc Reports back pain (over the right sciatic/SI joint area, on and off), Reports arthralgias (right knee ), Denies neck pain and Reports stiffness Skin/Breast Reports rash (on the left middle finger - itchy) Neuro Denies dizziness and Denies headache(s) Endo Denies fatigue and Denies palpitations Physical exam (Primary Care) Vital Signs: Last Vital Signs Temp 97.3 F 09/28/24 11:25 Pulse 78 09/28/24 11:25 BP 130/66 09/28/24 11:25 Pulse Ox 98 09/28/24 11:25 Oxygen Delivery Method Room Air 09/28/24 11:25 BMI result Body Mass Index 23.4 Tobacco/Smoking Status: Tobacco use Status Tobacco use date assessed 09/28/24 09/28/24 11:33 Patient Tobacco Use Status Never used Tobacco 09/28/24 11:33 Tobacco use type Cigarette 09/28/24 11:33 e-Cigarette/Vaping Use Never Used 09/28/24 11:33 PHQ-9: PHQ-9 Score PHQ-9: Total score 0 09/28/24 11:47 Depression Screening Interpretation: Negative Thrive Assessment: Date of Thrive Assessment Date Thrive assessed 09/28/24 09/28/24 11:33 Currently or been in a relationship where the following occur: No concerns reported Const General: no acute distress and alert HENMT Ears: TM's normal bilaterally and EAC's normal Throat: Yes posterior oropharynx normal and Yes tonsils normal (no TP congestion noted) Neck Neck: Yes supple and No lymphadenopathy Thyroid: Thyroid normal Resp Auscultation: clear to auscultation bilaterally, no crackles, no rales and no wheezes Cardio Rate: regular rate Rhythm: regular rhythm Heart sounds: no murmurs GI Palpation (GI): Soft to palpation and nontender Auscultation: normal bowel sounds General: Yes no CVA tenderness Back/Spine/Pelvis Back: no CVA tenderness Thoracic/Lumbar Spine: No lumbar spinal tenderness Skin Other: (+) scaling, mildly erythematous rash involving the entire length of the left middle finger Extrem General: Yes no clubbing, cyanosis or edema Right lower extremity: knee Details: tenderness and normal ROM; no swelling Results AMB Hemoglobin A1c AMB Hemoglobin A1c 5.6 % Last Edit by ALINA Shlutz on 09/28/24 12:00 Results Reviewed Results Reviewed: Laboratory Last Values Hgb A1c (Clinic) 5.6 % (4.0-6.0) 09/28/24 11:22 Coding Level of Care Code Est Pt Level 4 (95253) Diagnoses Type 2 diabetes mellitus without complication, without long-term current use of insulin E11.9 Diabetes mellitus type: type 2 Diabetes mellitus intermediate insulin use: without intermediate use Diabetes mellitus complication status: without complication Pure hypercholesterolemia E78.00 Benign essential hypertension I10 Paroxysmal atrial fibrillation I48.0 PAC (premature atrial contraction) I49.1 Anemia, unspecified type D64.9 Anemia type: unspecified type Gastrointestinal hemorrhage, unspecified gastrointestinal hemorrhage type K92.2 GI bleed type/associated pathology: unspecified gastrointestinal hemorrhage type GERD without esophagitis K21.9 Neuropathy G62.9 Arthralgia, unspecified joint M25.50 Joint pain location: unspecified Vitamin D deficiency E55.9 Erectile dysfunction, unspecified erectile dysfunction type N52.9 Erectile dysfunction type: unspecified Psoriasis L40.9 Insomnia, unspecified type G47.00 Insomnia type: unspecified Additional Codes PHQ-9 - 23376 - PHQ-9 Billing: Yes ([id number]) Assessment & Plan Assessment & Plan (1) Diabetes mellitus: Code(s): E11.9 - Type 2 diabetes mellitus without complications Category: Medical Qualifiers: Diabetes mellitus type: type 2 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 use Diabetes mellitus complication status: without complication Qualified Code(s): E11.9 - Type 2 diabetes mellitus without complications Plan: Patient's in-office HgbA1c today is at 5.6% (his HgbA1c was at 5.9% a few months ago) - goal is at least < 7.0% Reinforced diabetic diet Continue Metformin 500 mg 2 tablets in AM and 1 tablet in PM (BID) and Januvia 100 mg QD (2) Pure hypercholesterolemia: Code(s): E78.00 - Pure hypercholesterolemia, unspecified Category: Medical Plan: Patient was not able to get his follow up labs done prior to his appointment today - states that he will try to get these done CARIDAD, sometime in the next few days Reinforced low cholesterol diet Continue Simvastatin 20 mg QD Will recheck his labs and fasting lipids again in 4 months for follow up (3) Benign essential hypertension: Code(s): I10 - Essential (primary) hypertension Category: Medical Plan: Reinforced low sodium diet - goal is systolic BP of at least 140 to 150 mm Continue Amlodipine 10 mg QD, Losartan 100 mg QD and Metoprolol ER 50 mg QD (4) Paroxysmal atrial fibrillation: Comment: S/P successful ablation by Dr. Ananth Dutton at [facility] in [place] on 01/12/2019 Code(s): I48.0 - Paroxysmal atrial fibrillation Category: Medical Plan: Patient is presently still in sinus rhythm S/P atrial flutter ablation in 2019 with no recurrence; he is currently OFF anticoagulation Follow up with cardiology as scheduled (5) PAC (premature atrial contraction): Code(s): I49.1 - Atrial premature depolarization Category: Medical Plan: Continue Metoprolol ER 50 mg QD Follow up with cardiology as scheduled (6) Anemia: Code(s): D64.9 - Anemia, unspecified Category: Medical Qualifiers: Anemia type: unspecified type Qualified Code(s): D64.9 - Anemia, unspecified Plan: His H/H was at 10.0/29.1 on his last labs done a few months ago - patient will try to get his repeat labs done CARIDAD His iron tablets were discontinued a few months ago due to GI side effects Will continue to monitor his CBC regularly (7) Gastrointestinal hemorrhage: Code(s): K92.2 - Gastrointestinal hemorrhage, unspecified Category: Medical Qualifiers: GI bleed type/associated pathology: unspecified gastrointestinal hemorrhage type Qualified Code(s): K92.2 - Gastrointestinal hemorrhage, unspecified Plan: No recurrence - were most likely from left diverticular bleeding (past colonoscopies revealed the presence of sigmoid and left-sided diverticulosis) Follow up with GI as scheduled (8) GERD without esophagitis: Code(s): K21.9 - Gastro-esophageal reflux disease without esophagitis Category: Medical Plan: Dietary restrictions reinforced Continue Omeprazole 20 mg QD (9) Neuropathy: Code(s): G62.9 - Polyneuropathy, unspecified Category: Medical Plan: Continue Gabapentin 400 mg BID - his symptoms have been adequately controlled on his current Rx (10) Arthralgia: Code(s): M25.50 - Pain in unspecified joint Category: Medical Qualifiers: Joint pain location: unspecified Qualified Code(s): M25.50 - Pain in unspecified joint Plan: Continue Tramadol 50 mg 1 to 2 times a day PRN for pain (11) Vitamin D deficiency: Code(s): E55.9 - Vitamin D deficiency, unspecified Category: Medical Plan: Continue Vitamin D3 1000 units QD Will recheck his Vitamin D level for follow up (12) Erectile dysfunction: Code(s): N52.9 - Male erectile dysfunction, unspecified Category: Medical Qualifiers: Erectile dysfunction type: unspecified Qualified Code(s): N52.9 - Male erectile dysfunction, unspecified Plan: Continue Tadalafil 20 mg QD PRN (13) Psoriasis: Code(s): L40.9 - Psoriasis, unspecified Category: Medical Plan: His current left middle finger rash appears to be a flare up of psoriasis Will start him again on Clobetasol cream 0.05% to apply to his left middle finger BID x 2 weeks - patient is instructed to call if he does not notice any significant improvement in his finger over the next couple of weeks (14) Insomnia: Code(s): G47.00 - Insomnia, unspecified Category: Medical Qualifiers: Insomnia type: unspecified Qualified Code(s): G47.00 - Insomnia, unspecified Plan: Sleep hygiene reinforced He was doing well on Zolpidem 10 mg Q HS PRN in the past but his insurance declined to continue covering his Rx last year We switched him instead to Doxepin 6 mg Q HS PRN at his last visit - patient states that this helps somewhat but not as well as Zolpidem did Plan Follow up in 4 months Orders: Orders AMB Hemoglobin A1c Today E11.9 - Type 2 diabetes mellitus without complications Lipid Panel 4 Months E78.00 - Pure hypercholesterolemia, unspecified Comprehensive [place]. Panel Fast 4 Months E78.00 - Pure hypercholesterolemia, unspecified Microalbumin, Random (w Creat) 4 Months E11.9 - Type 2 diabetes mellitus without complications TSH reflex Free T4 4 Months E78.00 - Pure hypercholesterolemia, unspecified UA CC w/rflx Micro + Cult 4 Months R30.0 - Dysuria Complete Blood Count Auto Diff 4 Months D64.9 - Anemia, unspecified Vitamin B12 and Folate 4 Months E53.8 - Deficiency of other specified B group vitamins Vitamin D 25-OH Total 4 Months E55.9 - Vitamin D deficiency, unspecified Hemoglobin A1c 4 Months E11.9 - Type 2 diabetes mellitus without complications IRON PROFILE 4 Months D50.9 - Iron deficiency anemia, unspecified Erythropoietin (EPO) 4 Months D64.9 - Anemia, unspecified Medications: New clobetasol 0.05% 1 appl topical BID 2 weeks 45 grams 1RF
[2024-09-28 11:25] VITALS: BP 130/66; PULSE 78; TEMP 36.3; O2SAT 98; BMI 23.4
== END 2024-09-28 11:56 | disposition home or self-care (01) ==
PROVIDERS: PCP Internal Medicine; Visit Provider Internal Medicine
DX: E11.40 Type 2 diabetes mellitus with diabetic neuropathy, unspecified (principal); I48.0 Paroxysmal atrial fibrillation; E78.00 Pure hypercholesterolemia, unspecified; I10 Essential (primary) hypertension; I49.1 Atrial premature depolarization; D64.9 Anemia, unspecified; K92.2 Gastrointestinal hemorrhage, unspecified; K21.9 Gastro-esophageal reflux disease without esophagitis; G62.9 Polyneuropathy, unspecified; M25.50 Pain in unspecified joint; E55.9 Vitamin D deficiency, unspecified; N52.9 Male erectile dysfunction, unspecified

== ENCOUNTER → 2024-09-28 10:46 | Outpatient (BNVA) | payer MEDICARE, OTHER, SELFPAY | PROVIDERS: PCP Internal Medicine; Visit Provider Internal Medicine | DX: E11.9 Type 2 diabetes mellitus without complications (principal); E78.00 Pure hypercholesterolemia, unspecified; I10 Essential (primary) hypertension; I48.0 Paroxysmal atrial fibrillation; I49.1 Atrial premature depolarization; D64.9 Anemia, unspecified; K92.2 Gastrointestinal hemorrhage, unspecified; K21.9 Gastro-esophageal reflux disease without esophagitis; G62.9 Polyneuropathy, unspecified; M25.50 Pain in unspecified joint; E55.9 Vitamin D deficiency, unspecified; N52.9 Male erectile dysfunction, unspecified; L40.9 Psoriasis, unspecified; G47.00 Insomnia, unspecified | CPT/HCPCS: 83036; 96127; 99212 ==

== ENCOUNTER 2024-10-01 07:27 | Outpatient (REF) | payer MEDICARE, OTHER, SELFPAY ==
--- OUTSIDE RECORDS SUMMARY | 2024-10-01 07:30 | XMS_ITS | Data Portability ---
Author Organization [facility], [facility] Address [address] [place] [address] Assessment No assessment recorded. Plan of Treatment Reminders Order Date Submit Date Provider Last Modified By Organization Details Last Modified Time Details Appointments None recorded. Lab None recorded. Referral None recorded. Procedures None recorded. Surgeries None recorded. Imaging XR, foot, 3 or more view - recheck left foot rm [phone] [email or web address] [facility], [address], [facility] [address], [place], [address], 4 08:57:16 Medication Orders None recorded. Patient TargetsNo targets recorded. Patient InstructionsNo instructions recorded. Reason for Referral None Reported. Problems Name Problem SNOMED Code Status Onset Date Resolution Date Notes Provider Name and Address Organization Details Recorded Time No complaints [id number] Active Status : 'A'; Not Available [facility] 4 09:16:46 Problem Notes None recorded. Medical Equipment None Reported. Allergies Allergen ID Allergen Name Allergen Category Reaction Reaction Severity Criticality Documentation Date Start Date Code Code System Note Provider Name and Address Organization Details Recorded Time 66707 Product containin g penicilli n and antibioti c (product) medicatio n Not available Not available Not available 10/28/20232004 29443 05 SNOMED Aller gyRea ction : 'Skin React ion'; Not Available [facility] 4 13:51:37 50567 Substance with sulfonami de structure and antibacte rial mechanism of action (substanc e) medicatio n Not available Not available Not available 10/28/20232004 01620 8003 SNOMED Aller gyRea ction : 'Skin React ion'; Not Available [facility] 4 13:51:37 Medications Name Sig Start Date Stop Date Status Note LastModified by Organization Details LastModified Time erythromyci n 500 mg tablet TAKE 1 TAB BY MOUTH TWICE DAILY UNTIL GONE active Not Available Not Available No t Available metoprolol succinate ER 50 mg tablet,exte nded release 24 hr TAKE 1 TABLET ORALLY DAILY active Not Available Not Available No t Available prednisone 20 mg tablet TAKE 2 TABLETS BY MOUTH DAILY FOR 5 DAYS active Not Available Not Available No t Available clindamycin HCl 150 mg capsule TAKE 1 CAPSULE BY MOUTH EVERY DAY active Not Available Not Available No t Available doxycycline monohydrate 100 mg tablet TAKE 1 TABLET BY MOUTH TWICE A DAY FOR 7 DAYS active Not Available Not Available No t Available tramadol 50 mg tablet TAKE 1 TABLET BY MOUTH TWICE A DAY NEEDED FOR PAIN active Not Available Not Available No t Available acetaminoph en 500 mg tablet TAKE 2 TABLETS BY MOUTH EVERY 8 HOURS NEEDED FOR PAIN active Not Available Not Available No t Available aspirin 325 mg tablet,avril yed release TAKE 1 TABLET BYV MOUTH DAILY TO START THE DAY AFTER SURGERY active Not Available Not Available No t Available amlodipine 10 mg tablet TAKE 1 TABLET BY MOUTH EVERY DAY active Not Available Not Available No t Available simvastatin 20 mg tablet TAKE 1 TABLET ORALLY EVERY EVENING active Not Available Not Available No t Available pseudoephed rine-guaife nesin ER 80-700 mg tablet,exte nded release 1-2 TABS EVERY 8 HRS PRN PAIN 2005 active Statu s: 'Curr ent'; Not Available Not Available Not Available prednisone 50 mg tablet TAKE 1 TABLET BY MOUTH EVERY DAY FOR 5 DAYS active Not Available Not Available No t Available omeprazole 20 mg capsule,del ayed release TAKE 1 CAPSULE BY MOUTH TWICE A DAY active Not Available Not Available No t Available lorazepam 1 mg tablet TAKE 1 TABLET BY MOUTH 3 TIMES A DAY NEEDED FOR ANXIETY FOR 90 DAYS active Not Available Not Available No t Available levofloxaci n 750 mg tablet TAKE 1 TABLET BY MOUTH EVERY DAY FOR 5 DAYS active Not Available Not Available No t Available zolpidem 10 mg tablet TAKE 1 TABLET BY MOUTH EVERY DAY AT BEDTIME NEEDED FOR INSOMNIA active Not Available Not Available No t Available albuterol sulfate HFA 90 mcg/actuati on aerosol inhaler INHALE 2 PUFFS EVERY 4 HOURS active Not Available Not Available No t Available fluticasone propionate 50 mcg/actuati on nasal spray,suspe nsion TAKE 1 SPRAY(INT RANASAL) DAILY FOR 30 DAYS active Not Available Not Available No t Available oxycodone 5 mg tablet PLEASE SEE ATTACHED FOR DETAILED DIRECTION S active Not Available Not Available No t Available valsartan 160 mg tablet TAKE 1 TABLET BY MOUTH EVERY DAY active Not Available Not Available No t Available Ativan Ativan 2MG Tablet 2004 active Statu s: 'Curr ent'; Not Available Not Available Not Available Januvia 100 mg tablet TAKE 1 TABLET BY MOUTH EVERY DAY active Not Available Not Available No t Available oxycodone HCl-oxycodo ne-ASA 1Q 4-[address] WHILE ON THIS MEDICATIO NTo begin after sugery 10/10 completed Statu s: 'Disc ontin ued'; Not Available Not Available Not Available Vitals Date Recorded Body height Body mass index (BMI) Body weight Provider Name and Address Organization Details Last Updated DateTime 12/05/2023 177.8 cm 24.4 kg/m2 17556.7 g Stacy evans [place] - [facility] 12/05/2023 12:34:37 Social History None recorded. Functional Status None recorded. Mental Status None recorded. Family History Nothing Reported. Medical History No medical history recorded. Past Encounters Encounter ID Performer Location Encounter Start Date Encounter Closed Date Diagnosis/Indication Diagnosis SNOMED-CT Code Diagnosis ICD10 Code Diagnosis Note [id number] BETTY Hurley [address] [place] [address] 12/05/2023 12:21:42 12/25/2023 08:57:16 Pain in left foot [id number] 70229 M79.672 Health Concerns Section Related Observation LastModified by Organization Detai ls LastModified Time None Recorded Concern Status LastModified by Organization Details LastModified Time None Recorded Advance Directives Directive None Recorded Payers None recorded. Notes Date Note Type Note Provider Name and Address Organization Details Recorded Time 12/05/2023 text/html Patient was seen today under the direct supervision of Dr. Spencer who was available but did not see the patientHISTORY OF PRESENT ILLNESS:The patient presents for follow-up status post left hammertoe correction with PIP arthrodesis and debridement of callus/ulcer. He is several months out from surgery and doing well. He denies pain associated with his third fourth and fifth toes. He is happy with the postop outcome. No new ulcerations or lesionsPast family, medical, social history and review of systems has been reviewed and is located in the patient? s chart.PHYSICAL EXAM:Musculoskeletal : With postop shoe removed, his left second toe is well aligned. Incisions are well-healed. There is mild swelling without infectious change. His second toe is straight and nontender. His third fourth and fifth toes are rigid but no new ulcerations or lesions. He has some maceration between the toes. No infections. Baseline peripheral neuropathy. The foot appears well-perfused.X-RAYS : Three standing views of the left foot were ordered, obtained and reviewed by me today at [facility], demonstrating interval healing of his left second PIP arthrodesis with well aligned second toe . There is chronic change of the distal phalanx consistent with prior osteomyelitis.IMPRES CHERY: 3+ months postop and doing wellPLAN: Patient should practice good footcare including washing between the toes regularly. He should continue accommodative shoe wear and call if there are any concerns in the future. Dr. Gagnon recommended holding off on fixing his third fourth and fifth toes unless they are becoming a problem. Dasha Mckeon PA-C [address] [facility] [address], [place], [address], [facility] - [facility] 12/05/2023 13:25:07
[2024-10-01 08:14] LABS: Basophils Absolute Auto 0.1 X10*3/uL (0.0-0.2); Basophils Percent Auto 0.8 % (0-2); Eosinophils Percent Auto 0.6 % (0-4); Hematocrit 29.3 % (42.0-52.0); Imm Gran Abs Auto 0.04 X10*3/uL (0.00-0.03); Imm Gran Pct Auto 0.6 % (0.0-0.4); Lymphocytes Absolute Auto 1.1 X10*3/uL (1.2-4.9); Lymphocytes Percent Auto 16.7 % (20-40); MANUAL DIFF FLAG NO; Mean Corpuscular HGB Conc 34.1 g/dl (31.0-36.0); Mean Corpuscular Hemoglobin 36.9 pg (27.0-33.0); Mean Corpuscular Volume 108.1 fL (80.0-98.0); Mean Platelet Volume 10.7 fL (9.4-12.4); Monocytes Absolute Auto 0.7 X10*3/uL (0.1-1.2); Monocytes Percent Auto 10.4 % (2-11); Neutrophils Absolute Auto 4.6 x10*3/uL (2.0-8.3); Neutrophils Percent Auto 70.9 % (45-73); Platelet Count 313 X10*3/uL (160-400); Red Blood Count 2.71 X10*6/uL (4.60-5.80); White Blood Count 6.5 X10*3/uL (4.8-10.8)
[2024-10-01 08:47] LABS: Alanine Aminotransferase 10 U/L (0-40); Albumin Level 4.1 g/dL (3.5-5.0); Alkaline Phosphatase 57 U/L (39-117); Anion Gap 11 (12-20); Aspartate Amino Transferase 19 U/L (5-37); Blood Urea Nitrogen 16 mg/dL (9-16); Calcium 9.3 mg/dL (8.4-10.2); Carbon Dioxide 27 mmol/L (22-29); Chloride 104 mmol/L (96-108); Cholesterol 107 mg/dL (<200); Estimated Glomerular Filt Rate > 60; Glucose Fasting 146 mg/dL (60-99); HDL Cholesterol 43 mg/dL (>40); LDL Cholesterol Calculated 48 mg/dL (<100); Potassium 4.9 mmol/L (3.3-5.1); Sodium 137 mmol/L (135-145); Total Protein 7.7 g/dL (6.5-8.0); Triglycerides 82 mg/dL (<150)
[2024-10-01 09:05] LABS: TSH reflex Free T4 0.83 uIU/mL (0.32-4.0); Vitamin D 25-OH Total 39.3 ng/mL (>30)
[2024-10-01 09:17] LABS: Folate 11.7 ng/mL (> or = 4.0); Vitamin B12 863 pg/mL (200-900)
[2024-10-01 10:53] LABS: Appearance Urine Turbid; Color Urine Yellow; Glucose Urine UA Negative (Negative); Leukocyte Esterase Urine Large (3+) (Negative); Nitrite Urine Negative (Negative); UMIC TRIGGER UACC YES; Urine Blood Trace (Negative); Urine Ketones Negative (Negative); Urine Protein 30 (1+) mg/dL (Neg-Trace)
[2024-10-01 10:57] LABS: Bacteria Urine 4+ (None Seen); Hyaline Casts Urine 0-2 /LPF (0-2); RBC Urine 0-2 /HPF (0-2); Squamous Epithelial Cell Urine 0-2 /HPF (0-2); UACC Culture Trigger YES; WBC Urine >50 /HPF (0-5)
[2024-10-01 11:20] LABS: Estimated Average Glucose 123 mg/dL; Hemoglobin A1C 109.8898 umol/L; Hemoglobin A1c % 5.9 % (<6.0); Total Hemoglobin (HGBA1C) 2700.6181 umol/L
== END 2024-10-01 07:28 | disposition home or self-care (01) ==
LOC: HO.LAB 07:27
PROVIDERS: PCP Internal Medicine; Visit Provider Internal Medicine
DX: E11.9 Type 2 diabetes mellitus without complications (principal); E78.00 Pure hypercholesterolemia, unspecified; D64.9 Anemia, unspecified; E53.8 Deficiency of other specified B group vitamins; E55.9 Vitamin D deficiency, unspecified; R30.0 Dysuria
CPT/HCPCS: 36415; 80053; 80061; 81001; 82306; 82607; 82746; 83036; 84443; 85025; 87086; 87088; 87186

== ENCOUNTER 2025-02-15 07:22 | Outpatient (REF) | payer MEDICARE, OTHER, SELFPAY ==
--- OUTSIDE RECORDS SUMMARY | 2025-02-15 07:24 | XMS_ITS | Data Portability ---
Author Organization [place] - [facility], [facility] Address [address] [place] [address] Assessment No assessment recorded. Plan of Treatment Reminders Order Date Submit Date Provider Last Modified By Organization Details Last Modified Time Details Appointments None recorded. Lab None recorded. Referral None recorded. Procedures None recorded. Surgeries None recorded. Imaging XR, foot, 3 or more view - recheck left foot rm [phone] [email or web address] [facility] Office, [address] [facility], [facility] [address], [place], [address], 4 08:57:16 Medication Orders None recorded. Patient TargetsNo targets recorded. Patient InstructionsNo instructions recorded. Reason for Referral None Reported. Problems Name Problem SNOMED Code Status Onset Date Resolution Date Notes Provider Name and Address Organization Details Recorded Time No complaints [id number] Active Status : 'A'; Not Available [facility] 4 09:16:46 Problem Notes None recorded. Medical Equipment None Reported. Allergies Allergen ID Allergen Name Allergen Category Reaction Reaction Severity Criticality Documentation Date Start Date Code Code System Note Provider Name and Address Organization Details Recorded Time 09419 Product containin g penicilli n (product) medicatio n Not available Not available Not available 10/28/20232004 69962 8001 SNOMED Aller gyRea ction : 'Skin React ion'; Not Available [facility] 4 13:51:37 95565 Substance with sulfonami de structure and antibacte rial mechanism of action (substanc e) medicatio n Not available Not available Not available 10/28/20232004 95418 8003 SNOMED Aller gyRea ction : 'Skin React ion'; Not Available [facility] 4 13:51:37 Medications Name Sig Start [...] Updated DateTime 12/05/2023 177.8 cm 24.4 kg/m2 34102.7 g Stacy evans [place] - [facility] 12/05/2023 12:34:37 Social History None recorded. Functional Status None recorded. Mental Status None recorded. Family History Nothing Reported. Medical History No medical history recorded. Past Encounters Encounter ID Performer Location Encounter Start Date Encounter Closed Date Diagnosis/Indication Diagnosis SNOMED-CT Code Diagnosis ICD10 Code Diagnosis Note [id number] BETTY Hurley [address]rd floor [address] [place] [address] 12/05/2023 12:21:42 12/25/2023 08:57:16 Pain in left foot [id number] 09621 M79.672 Health Concerns Section Related Observation LastModified by Organization Detai ls LastModified Time None Recorded Concern Status LastModified by Organization Details LastModified Time None Recorded Advance Directives Directive None Recorded Payers Insurance Date Sequence Insurance Name Policy Number Policy Alberto Covered Member ID Alberto Member ID Guarantor Name 12/05/2023 [employer] - [place] [facility] Contreras Chapman [id number] Contreras G Ari Notes Date Note Type Note Provider Name [...] been reviewed and is located in the patient s chart.PHYSICAL EXAM:Musculoskeletal : With postop shoe [...] obtained and reviewed by me today at [facility], demonstrating interval healing of his left [...] becoming a problem. Dasha Mckeon PA-C [address], [place], [address], [facility] - [facility] 12/05/2023 13:25:07
[2025-02-15 10:44] LABS: Alanine Aminotransferase 9 U/L (0-40); Albumin Level 4.1 g/dL (3.5-5.0); Alkaline Phosphatase 49 U/L (39-117); Anion Gap 12 (12-20); Aspartate Amino Transferase 16 U/L (5-37); Blood Urea Nitrogen 12 mg/dL (9-16); Calcium 8.8 mg/dL (8.4-10.2); Carbon Dioxide 24 mmol/L (22-29); Chloride 106 mmol/L (96-108); Cholesterol 94 mg/dL (<200); Estimated Glomerular Filt Rate 55; Glucose Fasting 148 mg/dL (60-99); HDL Cholesterol 37 mg/dL (>40); LDL Cholesterol Calculated 47 mg/dL (<100); Potassium 4.2 mmol/L (3.3-5.1); Sodium 138 mmol/L (135-145); Total Protein 6.8 g/dL (6.5-8.0); Triglycerides 51 mg/dL (<150)
== END 2025-02-15 07:23 | disposition home or self-care (01) ==
LOC: HO.10HDL 07:22
PROVIDERS: Visit Provider Internal Medicine
DX: E78.00 Pure hypercholesterolemia, unspecified (principal)
CPT/HCPCS: 36415; 80053; 80061

== ENCOUNTER 2025-02-19 09:24 | Outpatient (AMB) | payer MEDICARE, OTHER, SELFPAY ==
[2025-02-19 09:30] VITALS: BP 124/60; PULSE 75; O2SAT 96; BMI 24.0
--- NOTE | 2025-02-19 09:30 | A.OFFPC_ITS ---
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: No Accompanied by: Self / Same As Patient Allergies Penicillins Allergy (Intermediate, Verified 02/19/25 10:03) RASH/HIVES Sulfa (Sulfonamide Antibiotics) Allergy (Intermediate, Verified 02/19/25 10:03) RASH/HIVES, hives aspirin Allergy (Verified 02/19/25 10:03) Abdominal Pain Medication List - Last Reconciled 02/19/25 by Leonard Ames MD acetaminophen 1,000 mg PO Q8H PRN amlodipine 10 mg PO DAILY clobetasol 0.05% 1 appl topical BID 2 weeks doxepin 6 mg PO BEDTIME PRN 90 days lorazepam 1 mg PO TID PRN 90 days metoprolol succinate ER 50 mg PO DAILY multivitamin 1 tab PO DAILY omega 3-gtk-asm-fish oil 300-1,000 mg (Fish Oil) 1 cap PO DAILY omeprazole 20 mg PO BID simvastatin 20 mg PO QPM sitagliptin phosphate (Januvia) 100 mg PO DAILY tramadol 50 mg PO BID PRN valsartan 160 mg PO DAILY 90 days zolpidem 10 mg PO BEDTIME PRN Tobacco use date assessed: 02/19/25 Fall risk assessment: 1 Fall in past year Last assessed Fall Risk: 02/19/25 Dental Screening Dental Screen Date: 02/19/25 Did you have a dental visit in the last 12 months?: Yes Did you have a dental problem in the last 6 months where you did not have access to dental care?: No Was dental information given to patient?: Patient has dentist HPI 4mth f/u HPI Details Patient comes in today for his follow-up visit States that he feels okay He denies any headaches or dizziness Denies any chest pains, no increased shortness of breath No nausea/vomiting, no abdominal pain No change in bowel habits noted States that he's had increased dry skin on a few fingers on both hands for a few weeks now - notes that these also sometimes get itchy, especially at night He had his follow up labs done a few days ago - to discuss his results [facility] Medical History Paroxysmal atrial fibrillation Erectile dysfunction Screening for colon cancer Essential hypertension Paroxysmal atrial flutter Insomnia Pyelonephritis Psoriasis Vitamin D deficiency Arthralgia Neuropathy GERD without esophagitis Gastrointestinal hemorrhage Anemia Pure hypercholesterolemia Benign essential hypertension Diabetes mellitus Atrial flutter Surgical History History of colonoscopy S/P ablation of atrial flutter History of inguinal hernia repair History of left hip replacement Family History Father Pneumonia Mother Myocardial infarction Son No problems noted. Daughter No problems noted. Social History Household Members: None Housing: House Alcohol intake: current Alcohol intake frequency: 0-2 drinks per day Alcohol type: beer and hard liquor Comment: low fall Patient Tobacco Use Status: Never used Tobacco Tobacco use type: Cigarette e-Cigarette/Vaping Use: Never Used Second Hand Smoke Exposure: Yes Advance Directives Date on File: 08/26/00 service: Yes Current occupational status: retired Cognitive needs: No Hearing needs: Yes Vision needs: Yes (Glasses) Questionnaire PHQ-9 Over the last 2 weeks, how often have you been bothered by any of the following problems? 1. Little interest or pleasure in doing things: several days 2. Feeling down, depressed, or hopeless: not at all 3. Trouble falling or staying asleep, or sleeping too much: not at all 4. Feeling tired or having little energy: several days 5. Poor appetite or overeating: not at all 6. Feeling bad about yourself - or that you are a failure or have let yourself or your family down: not at all 7. Trouble concentrating on things, such as reading the newspaper or watching television: not at all 8. Moving or speaking so slowly that other people could have noticed. Or the opposite - being so fidgety or restless that you have been moving around a lot more than usual: not at all 9. Thoughts that you would be better off or of hurting yourself in some way: not at all Total score: 2 Depression Screening Interpretation: Negative Depression Screening Done: Yes 55140 - PHQ-9 Billing: Yes Source: Developed by Drs. Contreras David, Violeta Philip, Brandon Sanders and colleagues, with an educational vanessa from [employer]. Thrive Questionnaire Date Thrive assessed: 02/19/25 I am a: Patient What is your living situation today?: I have a steady place to live Within the past 12 months, did the food you bought not last and you didn't have the money to get more?: Never true Within the past 12 months, did you worry whether your food would run out before you got money to buy more?: I choose not to answer this question Do you have trouble paying for medicines?: No Do you have trouble getting transportation to medical appointments?: No Do you have trouble paying your heating and electricity bill?: I choose not to answer this question Do you have trouble taking care of your child, family member or friend?: I choose not to answer this question Do you have trouble with day-to-day activities such as bathing, preparing meals, shopping, managing finances, etc.?: No Are you currently unemployed and looking for a job?: I choose not to answer this question Are you interested in more education?: I choose not to answer this question Please select the resources that you would like help with: None Currently or been in a relationship where the following occur: I choose not to answer THRIVE Score: 0 AUDIT C Alcohol Use Questionnaire (AUDIT-C) 1. How often do you have a drink containing alcohol?: 2-4 times a month 2. How many drinks containing alcohol do you have on a typical day when you are drinking?: 1 or 2 3. How often do you have six or more drinks on one occasion?: Never Total Score: 2 Score Reviewed/Action Taken: Yes DEVORAH-7 AMB Questionnaire DEVORAH-7 Date DEVORAH - 7 assessed: 02/19/25 Feeling nervous, anxious, or on edge: 1 = Several days Not being able to stop or control worryin = Several days Worrying too much about different things: 1 = Several days Trouble relaxin = Several days Being so restless that it is hard to sit still: 0 = Not at all Becoming easily annoyed or irritable: 1 = Several days Feeling afraid as if something awful might happen: 0 = Not at all Total DEVORAH-7 score (0-4 normal; 5-9 mild; 10-14 moderate; 15-21 severe): 5 Source: Developed by Drs. Contreras David, Violeta Phliip, Brandon Sanders and colleagues, with an educational vanessa from [employer]. Review of Systems Const Denies chills, Denies difficulty sleeping (Zolpidem helps), Denies fatigue, Denies fever(s) and Denies headache(s) ENT Denies dysphagia, Denies dizziness, Denies otalgia, Denies headache(s), Denies neck pain, Denies odynophagia and Denies sore throat Card Denies chest pain, Denies palpitations and Denies dyspnea Resp Denies chest congestion, Denies cough and Denies dyspnea GI Denies abdominal pain, Denies hematochezia, Denies constipation, Denies dysphagia, Denies heartburn, Denies diarrhea, Denies nausea and Denies o dynophagia Denies difficulty urinating, Denies dysuria, Denies nocturia and Denies urinary frequency Musc Reports back pain (over the right sciatic/SI joint area, on and off), Reports arthralgias (right knee ), Denies neck pain and Reports stiffness Skin/Breast Reports dry skin (increasingly dry skin noted on several fingers on both hands) and Reports rash (on the fingers) Neuro Denies dizziness and Denies headache(s) Endo Denies fatigue and Denies palpitations Physical exam (Primary Care) Vital Signs: Last Vital Signs Pulse 75 02/19/25 09:30 BP 124/60 02/19/25 09:30 Pulse Ox 96 02/19/25 09:30 Oxygen Delivery Method Room Air 02/19/25 09:30 BMI result Body Mass Index 24.0 Tobacco/Smoking Status: Tobacco use Status Tobacco use date assessed 02/19/25 02/19/25 09:41 Patient Tobacco Use Status Never used Tobacco 02/19/25 09:41 Tobacco use type Cigarette 02/19/25 09:41 e-Cigarette/Vaping Use Never Used 02/19/25 09:41 PHQ-9: PHQ-9 Score PHQ-9: Total score 2 02/19/25 10:04 Depression Screening Interpretation: Negative Thrive Assessment: Date of Thrive Assessment Date Thrive assessed 02/19/25 02/19/25 09:41 Currently or been in a relationship where the following occur: I choose not to answer Const General: no acute distress and alert HENMT Ears: TM's normal bilaterally and EAC's normal Throat: Yes posterior oropharynx normal and Yes tonsils normal (no TP congestion noted) Neck Neck: Yes supple and No lymphadenopathy Thyroid: Thyroid normal Resp Auscultation: clear to auscultation bilaterally, no crackles, no rales and no wheezes Cardio Rate: regular rate Rhythm: regular rhythm Heart sounds: no murmurs GI Palpation (GI): Soft to palpation and nontender Auscultation: normal bowel sounds General: Yes no CVA tenderness Back/Spine/Pelvis Back: no CVA tenderness Thoracic/Lumbar Spine: No lumbar spinal tenderness Skin Other: (+) very dry skin with scalling noted over a few areas on several fingers on both hands Extrem General: Yes no clubbing, cyanosis or edema Right lower extremity: knee Details: tenderness and normal ROM; no swelling Results Reviewed Results Reviewed: Laboratory Tests 02/15/25 07:25 Sodium 138 Potassium 4.2 Creatinine 1.25 Estimated GFR 55 Fasting Glucose 148 H Calcium 8.8 AST 16 ALT 9 Triglycerides 51 Cholesterol 94 LDL Cholesterol, Calc 47 HDL Cholesterol 37 L Coding Level of Care Code Est Pt Level 4 (99798) Diagnoses Type 2 diabetes mellitus without complication, without long-term current use of insulin E11.9 Diabetes mellitus complication status: without complication Diabetes mellitus detention insulin use: without detention use Diabetes mellitus type: type 2 Pure hypercholesterolemia E78.00 Benign essential hypertension I10 Paroxysmal atrial fibrillation I48.0 PAC (premature atrial contraction) I49.1 Anemia, unspecified type D64.9 Anemia type: unspecified type Gastrointestinal hemorrhage, unspecified gastrointestinal hemorrhage type K92.2 GI bleed type/associated pathology: unspecified gastrointestinal hemorrhage type GERD without esophagitis K21.9 Neuropathy G62.9 Arthralgia, unspecified joint M25.50 Joint pain location: unspecified Vitamin D deficiency E55.9 Erectile dysfunction, unspecified erectile dysfunction type N52.9 Erectile dysfunction type: unspecified Psoriasis L40.9 Hand dermatitis L30.9 Insomnia, unspecified type G47.00 Insomnia type: unspecified Additional Codes PHQ-9 - 28299 - PHQ-9 Billing: Yes ([id number]) Assessment & Plan Assessment & Plan (1) Diabetes mellitus: Code(s): E11.9 - Type 2 diabetes mellitus without complications Category: Medical Qualifiers: Diabetes mellitus complication status: without complication Diabetes mellitus detention insulin use: without terminal gauger use Diabetes mellitus type: type 2 Qualified Code(s): E11.9 - Type 2 diabetes mellitus without complications Plan: Patient's HgbA1c was at 5.6% and 5.9% when previously checked over the past year - goal is at least < 7.0% Reinforced diabetic diet Continue Metformin 500 mg 2 tablets in AM and 1 tablet in PM (BID) and Januvia 100 mg QD (2) Pure hypercholesterolemia: Code(s): E78.00 - Pure hypercholesterolemia, unspecified Category: Medical Plan: Results of his labs done a few days ago reviewed and discussed with patient Reinforced low cholesterol diet Continue Simvastatin 20 mg QD Will recheck his labs and fasting lipids in 4 months for follow up (3) Benign essential hypertension: Code(s): I10 - Essential (primary) hypertension Category: Medical Plan: Reinforced low sodium diet - goal is systolic BP of at least 140 to 150 mm Continue Amlodipine 10 mg QD, Losartan 100 mg QD and Metoprolol ER 50 mg QD (4) Paroxysmal atrial fibrillation: Comment: S/P successful ablation by Dr. Ananth Dutton at [facility] in [place] on 01/12/2019 Code(s): I48.0 - Paroxysmal atrial fibrillation Category: Medical Plan: Patient is presently still in sinus rhythm S/P atrial flutter ablation in 2019 with no recurrence; he is currently OFF anticoagulation Follow up with cardiology as scheduled (5) PAC (premature atrial contraction): Code(s): I49.1 - Atrial premature depolarization Category: Medical Plan: Continue Metoprolol ER 50 mg QD Follow up with cardiology as scheduled (6) Anemia: Code(s): D64.9 - Anemia, unspecified Category: Medical Qualifiers: Anemia type: unspecified type Qualified Code(s): D64.9 - Anemia, unspecified Plan: His H/H was at 10.0/29.3% back in September 2024 His iron tablets were discontinued a few months ago due to GI side effects Will continue to monitor his CBC regularly (7) Gastrointestinal hemorrhage: Code(s): K92.2 - Gastrointestinal hemorrhage, unspecified Category: Medical Qualifiers: GI bleed type/associated pathology: unspecified gastrointestinal hemorrhage type Qualified Code(s): K92.2 - Gastrointestinal hemorrhage, unspecified Plan: No recurrence - were most likely from left diverticular bleeding (past colonoscopies revealed the presence of sigmoid and left-sided diverticulosis) Follow up with GI as scheduled (8) GERD without esophagitis: Code(s): K21.9 - Gastro-esophageal reflux disease without esophagitis Category: Medical Plan: Dietary restrictions reinforced Continue Omeprazole 20 mg QD (9) Neuropathy: Code(s): G62.9 - Polyneuropathy, unspecified Category: Medical Plan: Continue Gabapentin 400 mg BID - his symptoms have been adequately controlled on his current Rx (10) Arthralgia: Code(s): M25.50 - Pain in unspecified joint Category: Medical Qualifiers: Joint pain location: unspecified Qualified Code(s): M25.50 - Pain in u nspecified joint Plan: Continue Tramadol 50 mg 1 to 2 times a day PRN for pain (11) Vitamin D deficiency: Code(s): E55.9 - Vitamin D deficiency, unspecified Category: Medical Plan: Continue Vitamin D3 1000 units QD (12) Erectile dysfunction: Code(s): N52.9 - Male erectile dysfunction, unspecified Category: Medical Qualifiers: Erectile dysfunction type: unspecified Qualified Code(s): N52.9 - Male erectile dysfunction, unspecified Plan: Continue Tadalafil 20 mg QD PRN (13) Psoriasis: Code(s): L40.9 - Psoriasis, unspecified Category: Medical Plan: Continue Clobetasol cream 0.05% BID PRN (14) Hand dermatitis: Code(s): L30.9 - Dermatitis, unspecified Category: Medical Plan: Will start patient on Lac Hydrin 12% lotion BID-TID PRN (15) Insomnia: Code(s): G47.00 - Insomnia, unspecified Category: Medical Qualifiers: Insomnia type: unspecified Qualified Code(s): G47.00 - Insomnia, unspecified Plan: Sleep hygiene reinforced Continue Doxepin 6 mg Q HS PRN - states that he is doing well so far on his current Rx He was doing well on Zolpidem 10 mg Q HS PRN in the past but his insurance declined to continue covering his Rx last year Plan Follow up in 4 months Orders: Orders Complete Blood Count Auto Diff 4 Months D64.9 - Anemia, unspecified Lipid Panel 4 Months E78.00 - Pure hypercholesterolemia, unspecified Microalbumin, Random (w Creat) 4 Months E11.9 - Type 2 diabetes mellitus without complications Vitamin D 25-OH Total 4 Months E55.9 - Vitamin D deficiency, unspecified Comprehensive [place]. Panel Fast 4 Months E78.00 - Pure hypercholesterolemia, unspecified Hemoglobin A1c 4 Months E11.9 - Type 2 diabetes mellitus without complications TSH reflex Free T4 4 Months E78.00 - Pure hypercholesterolemia, unspecified UA CC w/rflx Micro + Cult 4 Months R30.0 - Dysuria Vitamin B12 and Folate 4 Months E53.8 - Deficiency of other specified B group vitamins Medications: New ammonium lactate 12% 1 appl topical TID PRN 400 grams 2RF dry skin L30.9 - Dermatitis, unspecified Refilled lorazepam 1 mg PO TID PRN 270 tabs 1RF anxiety 90 days F41.0 - Panic disorder [episodic paroxysmal anxiety], F41.1 - Generalized anxiety disorder
--- OUTSIDE RECORDS SUMMARY | 2025-02-19 09:49 | XMS_ITS | Data Portability ---
Author Organization [place] - [facility], [facility] Address [address] [place] [address] Assessment No assessment recorded. Plan of Treatment Reminders Order Date Submit Date Provider Last Modified By Organization Details Last Modified Time Details Appointments None recorded. Lab None recorded. Referral None recorded. Procedures None recorded. Surgeries None recorded. Imaging XR, foot, 3 or more view - recheck left foot rm [email or web address] [facility] Office, [address] [facility] [address], [place], [address], 4 08:57:16 Medication Orders None recorded. Patient TargetsNo targets recorded. Patient InstructionsNo instructions recorded. Reason for Referral None Reported. Problems Name Problem SNOMED Code Status Onset Date Resolution Date Notes Provider Name and Address Organization Details Recorded Time No complaints [id number] Active Status : 'A'; Not Available [facility] 4 09:16:46 Problem Notes None recorded. Medical Equipment None Reported. Allergies Allergen ID Allergen Name Allergen Category Reaction Reaction Severity Criticality Documentation Date Start Date Code Code System Note Provider Name and Address Organization Details Recorded Time 66723 Product containin g penicilli n (product) medicatio n Not available Not available Not available 10/28/20232004 72506 8001 SNOMED Aller gyRea ction : 'Skin React ion'; Not Available [facility] 4 13:51:37 65114 Substance with sulfonami de structure and antibacte rial mechanism of action (substanc e) medicatio n Not available Not available Not available 10/28/20232004 58686 8003 SNOMED Aller gyRea ction : 'Skin React ion'; Not Available [facility] 4 13:51:37 Medications Name Sig Start [...] Available No t Available aspirin 325 mg tablet,arvil yed release TAKE 1 TABLET BYV MOUTH [...] Updated DateTime 12/05/2023 177.8 cm 24.4 kg/m2 67833.7 g Stacy evnas [place] - [facility] 12/05/2023 12:34:37 Social History None recorded. Functional Status None recorded. Mental Status None recorded. Family History Nothing Reported. Medical History No medical history recorded. Past Encounters Encounter ID Performer Location Encounter Start Date Encounter Closed Date Diagnosis/Indication Diagnosis SNOMED-CT Code Diagnosis ICD10 Code Diagnosis Note [id number] BETTY Hurley [address] [place] [address] 12/05/2023 12:21:42 12/25/2023 08:57:16 Pain in left foot [id number] 96281 M79.672 Health Concerns Section Related Observation LastModified by Organization Detai ls LastModified Time None Recorded Concern Status LastModified by Organization Details LastModified Time None Recorded Advance Directives Directive None Recorded Payers Insurance Date Sequence Insurance Name Policy Number Policy Alberto Covered Member ID Alberto Member ID Guarantor Name 12/05/2023 [employer] - [place] [facility] Contreras Chapman [id number] Contreras G Ari Notes Date Note Type [...] obtained and reviewed by me today at [facility], demonstrating interval healing of his left second [...] Mckeon PA-C [address], [place], [address], [facility] - [facility] 12/05/2023 13:25:07
== END 2025-02-19 10:14 | disposition home or self-care (01) ==
LOC: HO.HMCH 09:24
PROVIDERS: PCP Internal Medicine; Visit Provider Internal Medicine
DX: E11.42 Type 2 diabetes mellitus with diabetic polyneuropathy (principal); I48.0 Paroxysmal atrial fibrillation; E78.00 Pure hypercholesterolemia, unspecified; G62.9 Polyneuropathy, unspecified; I10 Essential (primary) hypertension; I49.1 Atrial premature depolarization; D64.9 Anemia, unspecified; K92.2 Gastrointestinal hemorrhage, unspecified; K21.9 Gastro-esophageal reflux disease without esophagitis; M25.50 Pain in unspecified joint; E55.9 Vitamin D deficiency, unspecified

== ENCOUNTER → 2025-02-19 09:24 | Outpatient (BNVA) | payer MEDICARE, OTHER, SELFPAY | PROVIDERS: PCP Internal Medicine; Visit Provider Internal Medicine | DX: E11.9 Type 2 diabetes mellitus without complications (principal); E78.00 Pure hypercholesterolemia, unspecified; I10 Essential (primary) hypertension; I48.0 Paroxysmal atrial fibrillation; D64.9 Anemia, unspecified; K92.2 Gastrointestinal hemorrhage, unspecified; K21.9 Gastro-esophageal reflux disease without esophagitis; G62.9 Polyneuropathy, unspecified; E55.9 Vitamin D deficiency, unspecified; N52.9 Male erectile dysfunction, unspecified; L40.9 Psoriasis, unspecified; L30.9 Dermatitis, unspecified; G47.00 Insomnia, unspecified | CPT/HCPCS: 96127; 99212 ==

== ENCOUNTER 2025-07-01 07:33 | Outpatient (REF) | payer MEDICARE, OTHER, SELFPAY ==
--- OUTSIDE RECORDS SUMMARY | 2025-07-01 07:36 | XMS_ITS | Patient Health Record ---
Author Organization [facility] Address [address] [place] [address] Care Team Providers Care Marble Cutter Name Role Phone Kwaku LEACH, Leonard Primary Care Provider Troy Adams Jr Unavailable [phone] Ernestina Kinney Unavailable Unavailable Allergies Allergen (clinical drug ingredient) Drug/Non Drug Allergy documented on EMR Reaction Allergy Type Onset Date Status Sulfa Unknown Drug Allergy Active Penicillin Unknown Drug Allergy Active Reason For Referral No Information Medications Medication SIG (Take, Route, Frequency, Duration) Notes Start Date End Date Status Vitamin D3 1000 UNIT 1 capsule Orally On ce a day Active Zolpidem Tartrate 10 MG 1 tablet at bedt melba as needed Orally Once a day Active Omeprazole 20 MG 1 capsule Orally Onc e a day Active Simvastatin 20 MG 1 tablet in the even ing Orally Once a day Active Cyanocobalamin 500 MCG 1 tablet Orally O nce a day Active Gabapentin 400 MG 1 tablet Orally Twic e a day Active Multi Vitamin/Minerals - 1 Orally qd Active metFORMIN HCl 500 MG 2 tablet with a elizabeth l Orally twice a day Active Clobetasol Propionate 0.05 % 1 applicati on to affected area Externally Twice a day Active Fish Oil 1000 MG 1 capsule Orally Twi ce a day Active Losartan Potassium 100 MG 1 tablet Orall y Once a day Active traMADol HCl 50 MG 1 tablet on the tong ue and allow to dissolve as needed Orally 1-2 times daily Active amLODIPine Besylate 10 MG 1 tablet Orall y Once a day Active Ferrous Sulfate 324 (65 Fe) MG 1 tablet Orally Once a day Active Metoprolol Succinate ER 50 MG 1 tablet Orally Once a day Active hydrOXYzine HCl 10 MG 1 tablet as needed Orally TID Active LORazepam 1 MG 1 tablet at bedtime as needed Orally three x a day Active Immunizations Vaccine Route Administration Date Status Comme nts Influenza Unknown 04/26/2017 Administered Influenza Unknown 04/26/2018 Administered Social History Tobacco Use: Social History Observation Description Date Details (start date - stop date) Former Smoker NA - NA Tobacco Use/Smoking Question Answer Notes Patient is a former smoker When did you stop smoking? 45 years ago Alcohol Screen Question Answer Notes Did you have a drink contain ing alcohol in the past year? Yes How often did you have a dri nk containing alcohol in the past year? 2 to 4 times a month (2 points) How many drinks did you have on a typical day when you were drinking in the past year? 1 or 2 drinks (0 point) How often did you have 6 or more drinks on one occasion in the past year? Never (0 point) Points 2 Interpretation Negative Section Notes: alcohol:couple beers on frid ay night alcohol:couple beers on frid ay night Problems Problem Type SNOMED Code ICD Code Onset Dates Problem Status W/U Status Risk Notes Problem Hemorrhage of colon due to diverticulosis ([id number]) Diverticulosis of large intestine with hemorrhage (K57.31) Active confirmed Plan Of Treatment No Information Insurance Providers Payer Name Payer Address Payer Phone Subscriber Number Group Number Insured Name Patient Relationship to Insured Coverage Start Date Coverage End Date MEDICARE OF [place] [address] [place] [address] [phone] [id number] REGIS OWENS Self - patient is the insured Counts [facility] [address] [place] [address] [id number] REGIS OWENS Self - patient is the insured Medical (General) History Medical History History ICD Code diabetes mellitus hypertension Denies [place],,CVA,Lung disease,renal diseas e Aflutter/had ablasion Surgical History Surgery Date(Month/Year) appendectomy 1949' hernia repair hip replacement 2007 cyst 1972 ablasion 12/2018
[2025-07-01 10:35] LABS: MANUAL DIFF FLAG NO
[2025-07-01 10:45] LABS: Hematocrit 25.8 % (42.0-52.0); Hemoglobin 8.7 g/dl (14.0-18.0); Imm Gran Abs Auto 0.05 X10*3/uL (0.00-0.03); Imm Gran Pct Auto 1.0 % (0.0-0.4); Lymphocytes Absolute Auto 1.2 X10*3/uL (1.2-4.9); Mean Corpuscular HGB Conc 33.7 g/dl (31.0-36.0); Mean Corpuscular Hemoglobin 36.6 pg (27.0-33.0); Mean Corpuscular Volume 108.4 fL (80.0-98.0); NRBC Abs Auto 0.030 X10*3/uL (0.0-0.012); NRBC Pct Auto 0.6 /100WBC (0.0-0.2); Platelet Count 323 X10*3/uL (160-400); Red Blood Count 2.38 X10*6/uL (4.60-5.80); White Blood Count 5.1 X10*3/uL (4.8-10.8)
[2025-07-01 11:00] LABS: Alanine Aminotransferase 13 U/L (0-40); Albumin Level 4.3 g/dL (3.5-5.0); Alkaline Phosphatase 44 U/L (39-117); Anion Gap 11 (12-20); Appearance Urine Turbid; Aspartate Amino Transferase 22 U/L (5-37); Blood Urea Nitrogen 13 mg/dL (9-16); Calcium 9.1 mg/dL (8.4-10.2); Carbon Dioxide 25 mmol/L (22-29); Chloride 107 mmol/L (96-108); Cholesterol 108 mg/dL (<200); Estimated Glomerular Filt Rate > 60; Glucose Urine UA Negative (Negative); HDL Cholesterol 50 mg/dL (>40); PH 6.0 (5.0-9.0); Potassium 4.3 mmol/L (3.3-5.1); Sodium 139 mmol/L (135-145); Specific Gravity - Urine 1.010 (1.005-1.025); Total Protein 6.9 g/dL (6.5-8.0); Triglycerides 48 mg/dL (<150); UMIC TRIGGER UACC YES
[2025-07-01 11:18] LABS: UACC Culture Trigger YES
[2025-07-01 11:24] LABS: Folate 13.8 ng/mL (> or = 4.0); Vitamin B12 854 pg/mL (200-900)
[2025-07-01 11:26] LABS: Microalbum/Creatinine Ratio Ur 65.2 ug/mg cr (<30)
== END 2025-07-01 07:34 | disposition home or self-care (01) ==
LOC: HO.10HDL 07:33
PROVIDERS: Visit Provider Internal Medicine
DX: E11.9 Type 2 diabetes mellitus without complications (principal); E53.8 Deficiency of other specified B group vitamins; E55.9 Vitamin D deficiency, unspecified; R30.0 Dysuria; E78.00 Pure hypercholesterolemia, unspecified; D64.9 Anemia, unspecified
CPT/HCPCS: 36415; 80053; 80061; 81001; 82043; 82306; 82570; 82607; 82746; 83036; 84443; 85025; 87086; 87088; 87186

== ENCOUNTER 2025-07-02 13:42 | Outpatient (AMB) | payer MEDICARE, OTHER, SELFPAY ==
--- NOTE | 2025-07-02 13:43 | MHC.PC.OV ---
Vital Signs 07/02/25 13:44 Height 5 ft 10 in Weight 172 lb 4 oz BMI 24.7 BP 140/70 H Blood Pressure Location Lt brachial Position Sitting Pulse 74 Pulse Source Pulse Oximeter Pulse Oximetry (%) 99 Oxygen Delivery Method Room Air Intake Visit Reasons: hyperlipidemia , dm, eczema, anxiety Potato Picker Required: No Accompanied by: Self / Same As Patient Allergies Penicillins Allergy (Intermediate, Verified 07/02/25 13:57) RASH/HIVES Sulfa (Sulfonamide Antibiotics) Allergy (Intermediate, Verified 07/02/25 13:57) RASH/HIVES, hives aspirin Allergy (Verified 07/02/25 13:57) Abdominal Pain Medication List - Last Reconciled 07/02/25 by Leonard Ames MD acetaminophen 1,000 mg PO Q8H PRN amlodipine 10 mg PO DAILY ammonium lactate 12% 1 appl topical TID PRN clobetasol 0.05% 1 appl topical BID 2 weeks doxepin 6 mg PO BEDTIME PRN 90 days lorazepam 1 mg PO TID PRN 90 days metoprolol succinate ER 50 mg PO DAILY multivitamin 1 tab PO DAILY omega 5-tjo-wkb-fish oil 300-1,000 mg (Fish Oil) 1 cap PO DAILY omeprazole 20 mg PO BID simvastatin 20 mg PO QPM sitagliptin phosphate (Januvia) 100 mg PO DAILY tramadol 50 mg PO BID PRN valsartan 160 mg PO DAILY 90 days Tobacco use date assessed: 07/02/25 Fall risk assessment: 2 + Falls in past year Last assessed Fall Risk: 07/02/25 Dental Screening Dental Screen Date: 07/02/25 Did you have a dental visit in the last 12 months?: Yes Did you have a dental problem in the last 6 months where you did not have access to dental care?: No Was dental information given to patient?: Patient has dentist HPI hyperlipidemia , dm, eczema, anxiety HPI Details Patient comes in today for his follow-up visit States that he feels okay He denies any headaches or dizziness Denies any chest pains, no increased shortness of breath No nausea/vomiting, no abdominal pain No change in bowel habits noted He had his follow up labs done yesterday - to discuss his results [facility], [facility] Medical History Paroxysmal atrial fibrillation Erectile dysfunction Screening for colon cancer Essential hypertension Paroxysmal atrial flutter Insomnia Pyelonephritis Psoriasis Vitamin D deficiency Arthralgia Neuropathy GERD without esophagitis Gastrointestinal hemorrhage Anemia Pure hypercholesterolemia Benign essential hypertension Diabetes mellitus Atrial flutter Surgical History History of colonoscopy S/P ablation of atrial flutter History of inguinal hernia repair History of left hip replacement Family History Father Pneumonia Mother Myocardial infarction Son No problems noted. Daughter No problems noted. Social History Household Members: None Housing: House Alcohol intake: current Alcohol intake frequency: 0-2 drinks per day Alcohol type: beer and hard liquor Comment: low fall Patient Tobacco Use Status: Never used Tobacco Tobacco use type: Cigarette e-Cigarette/Vaping Use: Never Used Second Hand Smoke Exposure: Yes Advance Directives Date on File: 08/26/00 service: Yes Current occupational status: retired Cognitive needs: No Hearing needs: Yes Vision needs: Yes (Glasses) Questionnaire PHQ-9 Over the last 2 weeks, how often have you been bothered by any of the following problems? 1. Little interest or pleasure in doing things: several days 2. Feeling down, depressed, or hopeless: not at all 3. Trouble falling or staying asleep, or sleeping too much: not at all 4. Feeling tired or having little energy: several days 5. Poor appetite or overeating: not at all 6. Feeling bad about yourself - or that you are a failure or have let yourself or your family down: not at all 7. Trouble concentrating on things, such as reading the newspaper or watching television: not at all 8. Moving or speaking so slowly that other people could have noticed. Or the opposite - being so fidgety or restless that you have been moving around a lot more than usual: not at all 9. Thoughts that you would be better off or of hurting yourself in some way: not at all Total score: 2 Depression Screening Interpretation: Negative Depression Screening Done: Yes 83433 - PHQ-9 Billing: Yes Source: Developed by Violeta SalazarW. Cedrick, Brandon Sanders and colleagues, with an educational vanessa from [employer]. Thrive Questionnaire Date Thrive assessed: 07/02/25 I am a: Patient What is your living situation today?: I have a steady place to live Within the past 12 months, did the food you bought not last and you didn't have the money to get more?: Never true Within the past 12 months, did you worry whether your food would run out before you got money to buy more?: I choose not to answer this question Do you have trouble paying for medicines?: No Do you have trouble getting transportation to medical appointments?: No Do you have trouble paying your heating and electricity bill?: I choose not to answer this question Do you have trouble taking care of your child, family member or friend?: I choose not to answer this question Do you have trouble with day-to-day activities such as bathing, preparing meals, shopping, managing finances, etc.?: No Are you currently unemployed and looking for a job?: I choose not to answer this question Are you interested in more education?: I choose not to answer this question Please select the resources that you would like help with: None Currently or been in a relationship where the following occur: I choose not to answer THRIVE Score: 0 AUDIT C Alcohol Use Questionnaire (AUDIT-C) 1. How often do you have a drink containing alcohol?: 2-4 times a month 2. How many drinks containing alcohol do you have on a typical day when you are drinking?: 1 or 2 3. How often do you have six or more drinks on one occasion?: Never Total Score: 2 Score Reviewed/Action Taken: Yes DEVORAH-7 AMB Questionnaire DEVORAH-7 Date DEVORAH - 7 assessed: 07/02/25 Feeling nervous, anxious, or on edge: 1 = Several days Not being able to stop or control worryin = Several days Worrying too much about different things: 1 = Several days Trouble relaxin = Several days Being so restless that it is hard to sit still: 0 = Not at all Becoming easily annoyed or irritable: 1 = Several days Feeling afraid as if something awful might happen: 0 = Not at all Total DEVORAH-7 score (0-4 normal; 5-9 mild; 10-14 moderate; 15-21 severe): 5 Source: Developed by Drs. Contreras David, Violeta Philip, Brandon Sanders and colleagues, with an educational vanessa from [employer]. Review of Systems Const Denies chills, Denies difficulty sleeping (Zolpidem helps), Denies fatigue, Denies fever(s) and Denies headache(s) ENT Denies dysphagia, Denies dizziness, Denies otalgia, Denies headache(s), Denies neck pain, Denies odynophagia and Denies sore throat Card Denies chest pain, Denies palpitations and Denies dyspnea Resp Denies chest congestion, Denies cough and Denies dyspnea GI Denies abdominal pain, Denies hematochezia, Denies constipation, Denies dysphagia, Denies heartburn, Denies diarrhea, Denies nausea and Denies odynophagia Denies difficulty urinating, Denies dysuria, Denies nocturia and Denies urinary frequency Musc Reports back pain (over the right sciatic/SI joint area, on and off), Reports arthralgias (right knee ), Denies neck pain and Reports stiffness Skin/Breast Reports rash (on the fingers) Neuro Denies dizziness and Denies headache(s) Endo Denies fatigue and Denies palpitations Physical exam (Primary Care) Vital Signs: Last Vital Signs Pulse 74 07/02/25 13:44 BP 140/70 H 07/02/25 13:44 Pulse Ox 99 07/02/25 13:44 Oxygen Delivery Method Room Air 07/02/25 13:44 BMI result Body Mass Index 24.7 Tobacco/Smoking Status: Tobacco use Status Tobacco use date assessed 07/02/25 07/02/25 13:49 Patient Tobacco Use Status Never used Tobacco 07/02/25 13:49 Tobacco use type Cigarette 07/02/25 13:49 e-Cigarette/Vaping Use Never Used 07/02/25 13:49 PHQ-9: PHQ-9 Score PHQ-9: Total score 2 07/02/25 13:49 Depression Screening Interpretation: Negative Thrive Assessment: Date of Thrive Assessment Date Thrive assessed 07/02/25 07/02/25 13:49 Currently or been in a relationship where the following occur: I choose not to answer Const General: no acute distress and alert HENMT Ears: TM's normal bilaterally and EAC's normal Throat: Yes posterior oropharynx normal and Yes tonsils normal (no TP congestion noted) Neck Neck: Yes supple and No lymphadenopathy Thyroid: Thyroid normal Resp Auscultation: clear to auscultation bilaterally, no crackles, no rales and no wheezes Cardio Rate: regular rate Rhythm: regular rhythm Heart sounds: no murmurs GI Palpation (GI): Soft to palpation and nontender Auscultation: normal bowel sounds General: Yes no CVA tenderness Back/Spine/Pelvis Back: no CVA tenderness Thoracic/Lumbar Spine: No lumbar spinal tenderness Skin Rashes: no rashes Extrem General: Yes no clubbing, cyanosis or edema Right lower extremity: knee Details: tenderness and normal ROM; no swelling Results Reviewed Results Reviewed: Laboratory Tests 10/01/24 07/01/25 07:31 07:40 WBC 5.1 Hgb 10.0 L 8.7 L Hct 29.3 L 25.8 L MCV 108.4 H MCH 36.6 H RDW 16.0 Sodium 139 Potassium 4.3 Creatinine 1.04 Estimated GFR > 60 Fasting Glucose 148 H Hemoglobin A1c % 5.9 Calcium 9.1 AST 22 ALT 13 Triglycerides 48 Cholesterol 108 LDL Cholesterol, Calc 49 HDL Cholesterol 50 Vitamin B12 854 25-OH Vitamin D Total 29.3 L TSH 0.97 Ur Specific [place] 1.010 Urine Protein Trace Urine Glucose (UA) Negative Urine Blood Small (1+) H Urine Nitrite Negative Ur Leukocyte Esterase Large (3+) H Microalb/Creat Ratio 65.2 H Coding Level of Care Code Est Pt Level 4 (05789) Diagnoses Type 2 diabetes mellitus without complication, without long-term current use of insulin E11.9 Diabetes mellitus type: type 2 Diabetes mellitus jail insulin use: without jail use Diabetes mellitus complication status: without complication Pure hypercholesterolemia E78.00 Benign essential hypertension I10 Paroxysmal atrial fibrillation I48.0 PAC (premature atrial contraction) I49.1 Anemia, unspecified type D64.9 Anemia type: unspecified type Gastrointestinal hemorrhage, unspecified gastrointestinal hemorrhage type K92.2 GI bleed type/associated pathology: unspecified gastrointestinal hemorrhage type GERD without esophagitis K21.9 Neuropathy G62.9 Arthralgia, unspecified joint M25.50 Joint pain location: unspecified Vitamin D deficiency E55.9 Erectile dysfunction, unspecified erectile dysfunction type N52.9 Erectile dysfunction type: unspecified Psoriasis L40.9 Insomnia, unspecified type G47.00 Insomnia type: unspecified Additional Codes PHQ-9 - 46229 - PHQ-9 Billing: Yes ([id number]) Assessment & Plan Assessment & Plan (1) Diabetes mellitus: Code(s): E11.9 - Type 2 diabetes mellitus without complications Category: Medical Qualifiers: Diabetes mellitus type: type 2 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: without intermediate school teacher use Diabetes mellitus complication status: without complication Qualified Code(s): E11.9 - Type 2 diabetes mellitus without complications Plan: Patient's HgbA1c was at 5.9% on his labs done yesterday; his HgbA1c was at 5.6% and 5.9% when previously checked over the past year or two - goal is at least < 7.0% Reinforced diabetic diet Continue Metformin 500 mg 2 tablets in AM and 1 tablet in PM (BID) and Januvia 100 mg QD (2) Pure hypercholesterolemia: Code(s): E78.00 - Pure hypercholesterolemia, unspecified Category: Medical Plan: Results of his labs done yesterday reviewed and discussed with patient Reinforced low cholesterol diet Continue Simvastatin 20 mg QD Will recheck his labs and fasting lipids in 4 months for follow up (3) Benign essential hypertension: Code(s): I10 - Essential (primary) hypertension Category: Medical Plan: Reinforced low sodium diet - goal is systolic BP of at least 140 to 150 mm Continue Amlodipine 10 mg QD, Valsartan 160 mg QD and Metoprolol ER 50 mg QD (4) Paroxysmal atrial fibrillation: Comment: S/P successful ablation by Dr. Aannth Dutton at [facility] in [place] on 01/12/2019 Code(s): I48.0 - Paroxysmal atrial fibrillation Category: Medical Plan: Patient is presently still in sinus rhythm S/P atrial flutter ablation in 2019 with no recurrence; he is currently OFF anticoagulation Follow up with cardiology as scheduled (5) PAC (premature atrial contraction): Code(s): I49.1 - Atrial premature depolarization Category: Medical Plan: Continue Metoprolol ER 50 mg QD Follow up with cardiology as scheduled (6) Anemia: Code(s): D64.9 - Anemia, unspecified Category: Medical Qualifiers: Anemia type: unspecified type Qualified Code(s): D64.9 - Anemia, unspecified Plan: Patient is cautioned that his H/H has dropped significantly from 10.0/29.3% back in September 2024 to his current numbers at 8.7/25.8% His iron tablets were discontinued a while back due to GI side effects Will continue to monitor his CBC regularly (7) Gastrointestinal hemorrhage: Code(s): K92.2 - Gastrointestinal hemorrhage, unspecified Category: Medical Qualifiers: GI bleed type/associated pathology: unspecified gastrointestinal hemorrhage type Qualified Code(s): K92.2 - Gastrointestinal hemorrhage, unspecified Plan: No recurrence - this was most likely from a left diverticular bleeding (past colonoscopies revealed the presence of sigmoid and left-sided diverticulosis) Follow up with GI as scheduled (8) GERD without esophagitis: Code(s): K21.9 - Gastro-esophageal reflux disease without esophagitis Category: Medical Plan: Dietary restrictions reinforced Continue Omeprazole 20 mg BID (9) Neuropathy: Code(s): G62.9 - Polyneuropathy, unspecified Category: Medical Plan: He used to take Gabapentin 400 mg BID but appears to have stopped taking this some time ago States that his neuropathic symptoms have been mostly mild recently and do not really bother him as much as they used to (10) Arthralgia: Code(s): M25.50 - Pain in unspecified joint Category: Medical Qualifiers: Joint pain location: unspecified Qualified Code(s): M25.50 - Pain in unspecified joint Plan: Continue Tramadol 50 mg 1 to 2 times a day PRN for pain (11) Vitamin D deficiency: Code(s): E55.9 - Vitamin D deficiency, unspecified Category: Medical Plan: Continue Vitamin D3 1000 units QD (12) Erectile dysfunction: Code(s): N52.9 - Male erectile dysfunction, unspecified Category: Medical Qualifiers: Erectile dysfunction type: unspecified Qualified Code(s): N52.9 - Male erectile dysfunction, unspecified Plan: Continue Tadalafil 20 mg QD PRN (13) Psoriasis: Code(s): L40.9 - Psoriasis, unspecified Category: Medical Plan: Continue Clobetasol cream 0.05% BID PRN (14) Insomnia: Code(s): G47.00 - Insomnia, unspecified Category: Medical Qualifiers: Insomnia type: unspecified Qualified Code(s): G47.00 - Insomnia, unspecified Plan: Sleep hygiene reinforced Continue Doxepin 6 mg Q HS PRN - states that he is doing well so far on his current Rx He was doing well on Zolpidem 10 mg Q HS PRN in the past but his insurance declined to continue covering his Rx last year Plan Follow up in 4 months Orders: Orders Lipid Panel 4 Months E78.00 - Pure hypercholesterolemia, unspecified UA CC w/rflx Micro + Cult 4 Months R30.0 - Dysuria Vitamin B12 and Folate 4 Months E53.8 - Deficiency of other specified B group vitamins Vitamin D 25-OH Total 4 Months E55.9 - Vitamin D deficiency, unspecified Complete Blood Count Auto Diff 4 Months D64.9 - Anemia, unspecified Comprehensive [place]. Panel Fast 4 Months E78.00 - Pure hypercholesterolemia, unspecified TSH reflex Free T4 4 Months E78.00 - Pure hypercholesterolemia, unspecified Hemoglobin A1c 4 Months E11.9 - Type 2 diabetes mellitus without complications Referrals Hematology & Oncology Referral D46.9 - Myelodysplastic syndrome, unspecified
[2025-07-02 13:44] VITALS: BP 140/70; PULSE 74; O2SAT 99; BMI 24.7
--- OUTSIDE RECORDS SUMMARY | 2025-07-02 15:45 | XMS_ITS | Patient Health Record ---
Author Organization [facility] Address [address] [place] [address] Care Team Providers Care Technical Administrative Assistant Name Role Phone Kwaku LEACH, Leonard Primary Care Provider Troy Adams Jr Unavailable [phone] Ernestina Kinney Unavailable Unavailable Allergies Allergen (clinical [...] Problem Hemorrhage of colon due to diverticulosis ([id number]) Diverticulosis of large intestine with hemorrhage (K57.31) Active confirmed Plan Of Treatment No Information Insurance Providers Payer Name Payer Address Payer Phone Subscriber Number Group Number Insured Name Patient Relationship to Insured Coverage Start Date Coverage End Date MED[place]ARE OF [place] [address] [place] [address] [id number] REGIS OWENS Self - patient is the insured [facility] [address] [place] [address] [id number] REGIS OWENS Self - patient is the insured Medical (General) History Medical History History ICD Code diabetes mellitus hypertension Denies [place],,CVA,Lung disease,renal diseas e Aflutter/had ablasion Surgical History Surgery Date(Month/Year) appendectomy 1949' hernia repair hip replacement 2007 cyst 1972 ablasion 12/2018
== END 2025-07-02 14:24 | disposition home or self-care (01) ==
LOC: HO.HMCH 13:42
PROVIDERS: PCP Internal Medicine; Visit Provider Internal Medicine
DX: E11.9 Type 2 diabetes mellitus without complications (principal); E78.00 Pure hypercholesterolemia, unspecified; I10 Essential (primary) hypertension; I48.0 Paroxysmal atrial fibrillation; I49.1 Atrial premature depolarization; D64.9 Anemia, unspecified; K92.2 Gastrointestinal hemorrhage, unspecified; E55.9 Vitamin D deficiency, unspecified; N52.9 Male erectile dysfunction, unspecified; L40.9 Psoriasis, unspecified; G47.00 Insomnia, unspecified; K21.9 Gastro-esophageal reflux disease without esophagitis; G62.9 Polyneuropathy, unspecified; M25.50 Pain in unspecified joint

== ENCOUNTER → 2025-07-02 13:42 | Outpatient (BNVA) | payer MEDICARE, OTHER, SELFPAY | PROVIDERS: PCP Internal Medicine; Visit Provider Internal Medicine | DX: E11.9 Type 2 diabetes mellitus without complications (principal); E78.00 Pure hypercholesterolemia, unspecified; I10 Essential (primary) hypertension; I48.0 Paroxysmal atrial fibrillation; I49.1 Atrial premature depolarization; D64.9 Anemia, unspecified; K92.2 Gastrointestinal hemorrhage, unspecified; K21.9 Gastro-esophageal reflux disease without esophagitis; G62.9 Polyneuropathy, unspecified; M25.50 Pain in unspecified joint; E55.9 Vitamin D deficiency, unspecified; N52.9 Male erectile dysfunction, unspecified; L40.9 Psoriasis, unspecified; G47.00 Insomnia, unspecified | CPT/HCPCS: 96127; 99212 ==

== ENCOUNTER 2025-07-27 19:35 | Observation (INO) | payer MEDICARE, OTHER, SELFPAY ==
--- NOTE | 2025-07-27 | ECG_ITS ---
Test Reason : FALL Blood Pressure : */* mmHG Vent. Rate : 76 BPM Atrial Rate : 76 BPM P-R Int : 312 ms QRS Dur : 120 ms QT Int : 404 ms P-R-T Axes : 71 -45 48 degrees QTcB Int : 454 ms Poor data quality, interpretation may be adversely affected Sinus rhythm with 1st degree A-V block Left anterior fascicular block Abnormal ECG When compared with ECG of 05-Sep-2023 19:49, ST no longer depressed in Anterolateral leads Referred By: Generic ED Physician Electronically Signed By: DELON GARCIA
--- NOTE | ~2025-07-27 | XR_ITS ---
CLINICAL HISTORY: syncope 1 view chest x-ray Comparison: None provided Findings: The lungs are clear. Heart size is normal. No acute fracture. IMPRESSION: 1. No acute findings. This document has been electronically signed by: Gray Thomas MD on 07/27/2025 20:40:59
--- NOTE | ~2025-07-27 | XR_ITS ---
CLINICAL HISTORY: fall, pain --- Additional Notes or Special Instructions: transport tigered and information sent @[id number] Pati responded said she will bring patient --CM 3 view, pelvis and left hip Comparison: None provided Findings: No acute fracture or dislocation. Left total hip arthroplasty. Hardware complication by radiograph. The soft tissues are unremarkable. IMPRESSION: No acute fracture. This document has been electronically signed by: Melissa Bhatt MD on 07/29/2025 19:20:35
[2025-07-27 19:47] VITALS: BP 140/72; PULSE 88; O2SAT 99
[2025-07-27 19:48] VITALS: BP 157/60; PULSE 80; RESP 16; TEMP 36.4; O2SAT 100; BMI 25.3
[2025-07-27 19:58] VITALS: BP 157/60; PULSE 80; RESP 16; TEMP 36.4
--- NOTE | 2025-07-27 20:14 | ED.FALL ---
HPI - Fall General Chief Complaint: Fall Stated Complaint: found by family on the couch ETOH doesn't drink Time Seen by Provider: 07/27/25 20:07 Source: patient Mode of arrival: ambulatory Limitations: no limitations History of Present Illness ED Provider: Dr. Chavez HPI Narrative: The 89-year-old male history of hypertension, paroxysmal AFib not anticoagulated, diabetes, syncope episode, anemia presenting to ER today for evaluation of a syncopal episode. This was a unwitnessed syncopal episode at home. Daughter stated that she found him on the ground approximately 18:00 today. Patient was next to the couch in the living room. Patient is unable to recall the event. Patient denies any medical symptoms at this time. Patient stated that he is back to his baseline. Denies any chest pain no shortness of breath no palpitation. No history of seizure. Patient denies any pain in his chest or abdomen. No diarrhea or vomiting. Related Data Home Medications ?Medication ?Instructions ?Recorded ?Confirmed acetaminophen 500 mg tablet 1,000 mg PO Q8H PRN pain 09/06/23 07/02/25 multivitamin 1 tab PO DAILY 09/06/23 07/02/25 omega 8-jcp-xkk-fish oil 300 1 cap PO DAILY 09/06/23 07/02/25 mg-1,000 mg capsule,delayed release (Fish Oil) Previous Rx's ?Medication ?Instructions ?Recorded tramadol 50 mg tablet 50 mg PO BID PRN pain #60 tabs 06/28/23 metoprolol succinate 50 mg 50 mg PO DAILY #90 tabs 09/07/24 tablet,extended release 24 hr clobetasol 0.05 % topical cream 1 appl topical BID 2 weeks #45 09/28/24 grams omeprazole 20 mg capsule,delayed 20 mg PO BID #180 caps 11/10/24 release simvastatin 20 mg tablet 20 mg PO QPM #90 tabs 11/10/24 valsartan 160 mg tablet 160 mg PO DAILY 90 days #90 tabs 11/10/24 amlodipine 10 mg tablet 10 mg PO DAILY #90 tabs 11/13/24 sitagliptin phosphate 100 mg 100 mg PO DAILY #90 tabs 12/02/24 tablet (Januvia) doxepin 6 mg tablet 6 mg PO BEDTIME PRN insomnia 90 01/31/25 days #90 tabs ammonium lactate 12 % lotion 1 appl topical TID PRN dry skin 02/19/25 #400 grams lorazepam 1 mg tablet 1 mg PO TID PRN anxiety 90 days 02/19/25 #270 tabs ciprofloxacin HCl 500 mg tablet 500 mg PO Q12H 7 days #14 tabs 07/27/25 Allergies Allergy/AdvReac Type Severity Reaction Status Date / Time Penicillins Allergy Intermediate RASH/HIVES Verified 07/27/25 19:50 Sulfa (Sulfonamide Allergy Intermediate RASH/HIVES, Verified 07/27/25 19:50 Antibiotics) hives aspirin Allergy Abdominal Verified 07/27/25 19:50 Pain Review of Systems Review of Systems: Pertinent review of systems as mentioned in HPI. All other system otherwise negative. [facility] Past Medical History [facility] Narrative: Medical history as mentioned in HPI Medical History Paroxysmal atrial fibrillation Erectile dysfunction Screening for colon cancer Essential hypertension Paroxysmal atrial flutter Insomnia Pyelonephritis Psoriasis Vitamin D deficiency Arthralgia Neuropathy GERD without esophagitis Gastrointestinal hemorrhage Anemia Pure hypercholesterolemia Benign essential hypertension Diabetes mellitus Atrial flutter Surgical History History of colonoscopy S/P ablation of atrial flutter History of inguinal hernia repair History of left hip replacement Family History Family History Father Pneumonia Mother Myocardial infarction Son No problems noted. Daughter No problems noted. Social History Social History Household Members: None Housing: House Alcohol intake: never Comment: low fall Patient Tobacco Use Status: Never used Tobacco Tobacco use type: Cigarette Smoked in Last 30 Days: No e-Cigarette/Vaping Use: Never Used Second Hand Smoke Exposure: Yes Use of substances other than those prescribed or required for medical reasons: No Any prior treatment program specific to substance use: No Advance Directives: Yes Advance Directives on File: Yes Advance Directives Date on File: 08/26/00 Do you have a plan to hurt others: No Plan Nutrition Risks: No Nutritional Risk service: Yes Current occupational status: retired Cognitive needs: No Hearing needs: Yes Vision needs: Yes (Glasses) Physical Exam Exam: Exam: General: Pleasant, no distress, interacting appropriately Head: Normacephalic, atraumatic ENT: oral mucosa moist, neck supple, no tracheal deviation Cardiovascular: regular rate, regular rhythm, no murmurs, rubbing, gallops, no chest wall tenderness Respiratory: CTAB, no wheeze, rales, rhonchi Gastrointestinal: Soft, non distended, non tender, non guarding Extremities: No limb pain or swelling, no calf tenderness Neurological: Awake and alert, no facial droop noted, no focal neurologic deficit appreciated on exam Skin: Warm and dry Psychiatric: Appropriate mood and thoughts Vital Signs: Vital Signs: Last Vital Signs Temp 97.7 F 07/28/25 00:52 Pulse 82 07/28/25 00:52 Resp 13 07/28/25 00:52 BP 131/60 07/28/25 00:52 Pulse Ox 98 07/28/25 00:52 O2 Del Method Room Air 07/28/25 00:52 BMI result Body Mass Index 25.3 Medications Administered Generic Name Dose Route Start Last Admin Trade Name Freq PRN Reason Stop Dose Admin Enoxaparin Sodium 40 mg 07/28/25 01:00 07/28/25 01:05 Enoxaparin Sodium 40 Mg/0.4 Ml Syringe SUBCUT 40 mg Q24H GLENDY Administration Discontinued Medications Generic Name Dose Route Start Last Admin Trade Name Freq PRN Reason Stop Dose Admin Lactated Ringer's 1,000 mls @ 999 mls/hr 07/27/25 20:30 07/28/25 00:27 Lr IV 07/27/25 21:30 Infused .Q1H1M GLENDY Infusion Lactated Ringer's 1,000 mls @ 999 mls/hr 07/27/25 21:00 07/28/25 00:27 Lr IV 07/27/25 22:00 Infused .Q1H1M GLENDY Infusion Levofloxacin 500 mg in 100 mls @ 100 mls/hr 07/27/25 21:09 07/27/25 22:24 Levaquin IV 07/27/25 22:08 Infused ONCE ONE Infusion Medical Decision Making Medical Decision Making [facility] Narrative: 89-year-old male presented hospital today for evaluation of a syncopal episode at home that was unwitnessed. We will obtain cardiac workup EKG, chest x-ray for the patient. CT head CT C-spine will be obtained. UA will be obtained. Patient's UA did tested positive for UTI. We will plan to obtain blood culture IV Levaquin will be ordered. Patient does have allergy to penicillin and sulfa antibiotic. Review patient's EKG shows normal sinus rhythm. There is signs of a 1st degree AV block. Patient's CBC shows anemia at 10.1. This is improved than his prior hemoglobin level at 9.3. Patient's chemistries unremarkable. Patient's lactic acid is elevated at 2.2. Patient's troponin is negative. Patient's UA did show signs of UTI. Given patient's syncopal episode we will plan to admit the patient for syncope obs. CT head and CT C-spine is negative for any signs of acute injury. Differential Diagnosis Differential Diagnoses: The differential diagnosis associated with the presentation includes UTI, dehydration, syncope, cardiac arrhythmia Lab Data MDM Lab Attestation statement: I reviewed the patient's lab results. 07/27/25 20:21 07/27/25 20:21 Labs: Lab Results 07/27/25 07/27/25 07/27/25 Range/Units 20:21 20:27 21:02 WBC 6.2 (4.8-10.8) X10*3/uL RBC 2.74 L (4.60-5.80) X10*6/uL Hgb 10.1 L (14.0-18.0) g/dl Hct 29.7 L (42.0-52.0) % MCV 108.4 H (80.0-98.0) fL MCH 36.9 H (27.0-33.0) pg MCHC 34.0 (31.0-36.0) g/dl RDW 16.8 H (11.0-16.0) % Plt Count 304 (160-400) X10*3/uL MPV 10.7 (9.4-12.4) fL Immature Gran % (Auto) 0.8 H (0.0-0.4) % Neut % (Auto) 69.0 (45-73) % Lymph % (Auto) 19.1 L (20-40) % [place] % (Auto) 9.5 (2-11) % Eos % (Auto) 0.8 (0-4) % Baso % (Auto) 0.8 (0-2) % Lymph # (Auto) 1.2 (1.2-4.9) X10*3/uL [place] # (Auto) 0.6 (0.1-1.2) X10*3/uL Eos # (Auto) 0.1 (0.0-0.4) X10*3/uL Baso # (Auto) 0.1 (0.0-0.2) X10*3/uL Abs Immat Gran (auto) 0.05 H (0.00-0.03) X10*3/uL Absolute Neuts (auto) 4.3 (2.0-8.3) x10*3/uL Absolute Nucleated RBC 0.020 H (0.0-0.012) X10*3/uL Nucleated RBC % (auto) 0.3 H (0.0-0.2) /100WBC Sodium 141 (135-145) mmol/L Potassium 4.7 (3.3-5.1) mmol/L Chloride 108 (96-108) mmol/L Carbon Dioxide 22 (22-29) mmol/L Anion Gap 16 (12-20) BUN 14 (9-16) mg/dL Creatinine 0.98 (0.5-1.4) mg/dL Estim Creat Clear Calc 53.7 Estimated GFR > 60 Random Glucose 127 H (60-115) mg/dL Lactic Acid 2.2 H* (0.5-2.0) mmol/L Lactic Acid F/U @ 2Hr (0.5-2.0) mmol/L Calcium 9.5 (8.4-10.2) mg/dL Magnesium 1.8 (1.6-2.6) mg/dL Total Bilirubin 0.7 (0.0-1.0) mg/dL AST 27 (5-37) U/L ALT 16 (0-40) U/L Alkaline Phosphatase 49 (39-117) U/L Total Creatine Kinase 69 (38-174) U/L Troponin I High Sens 7.1 (<3.5-35.0) ng/L Total Protein 7.5 (6.5-8.0) g/dL Albumin 4.7 (3.5-5.0) g/dL Urine Color Yellow Urine Appearance Clear Urine pH 6.0 (5.0-9.0) Ur Specific [place] <= 1.005 (1.005-1.025) Urine Protein Negative (Neg-Trace) mg/dL Urine Glucose (UA) Negative (Negative) mg/dL Urine Ketones Negative (Negative) mg/dL Urine Blood Negative (Negative) Urine Nitrite Negative (Negative) Ur Leukocyte Esterase Moderate (2+) H (Negative) Urine RBC 0-2 (0-2) /HPF Urine WBC 21-50 H (0-5) /HPF Ur Squamous Epith Cells 0-2 (0-2) /HPF Urine Bacteria 4+ (None Seen) Hyaline Casts 3-5 (0-2) /LPF Ethyl Alcohol 173 mg/dL 07/27/25 Range/Units 23:51 WBC (4.8-10.8) X10*3/uL RBC (4.60-5.80) X10*6/uL Hgb (14.0-18.0) g/dl Hct (42.0-52.0) % MCV (80.0-98.0) fL MCH (27.0-33.0) pg MCHC (31.0-36.0) g/dl RDW (11.0-16.0) % Plt Count (160-400) X10*3/uL MPV (9.4-12.4) fL Immature Gran % (Auto) (0.0-0.4) % Neut % (Auto) (45-73) % Lymph % (Auto) (20-40) % [place] % (Auto) (2-11) % Eos % (Auto) (0-4) % Baso % (Auto) (0-2) % Lymph # (Auto) (1.2-4.9) X10*3/uL [place] # (Auto) (0.1-1.2) X10*3/uL Eos # (Auto) (0.0-0.4) X10*3/uL Baso # (Auto) (0.0-0.2) X10*3/uL Abs Immat Gran (auto) (0.00-0.03) X10*3/uL Absolute Neuts (auto) (2.0-8.3) x10*3/uL Absolute Nucleated RBC (0.0-0.012) X10*3/uL Nucleated RBC % (auto) (0.0-0.2) /100WBC Sodium (135-145) mmol/L Potassium (3.3-5.1) mmol/L Chloride (96-108) mmol/L Carbon Dioxide (22-29) mmol/L Anion Gap (12-20) BUN (9-16) mg/dL Creatinine (0.5-1.4) mg/dL Estim Creat Clear Calc Estimated GFR Random Glucose (60-115) mg/dL Lactic Acid (0.5-2.0) mmol/L Lactic Acid F/U @ 2Hr 3.1 H* (0.5-2.0) mmol/L Calcium (8.4-10.2) mg/dL Magnesium (1.6-2.6) mg/dL Total Bilirubin (0.0-1.0) mg/dL AST (5-37) U/L ALT (0-40) U/L Alkaline Phosphatase (39-117) U/L Total Creatine Kinase (38-174) U/L Troponin I High Sens (<3.5-35.0) ng/L Total Protein (6.5-8.0) g/dL Albumin (3.5-5.0) g/dL Urine Color Urine Appearance Urine pH (5.0-9.0) Ur Specific [place] (1.005-1.025) Urine Protein (Neg-Trace) mg/dL Urine Glucose (UA) (Negative) mg/dL Urine Ketones (Negative) mg/dL Urine Blood (Negative) Urine Nitrite (Negative) Ur Leukocyte Esterase (Negative) Urine RBC (0-2) /HPF Urine WBC (0-5) /HPF Ur Squamous Epith Cells (0-2) /HPF Urine Bacteria (None Seen) Hyaline Casts (0-2) /LPF Ethyl Alcohol mg/dL Independent Interpretation I performed an independent interpretation of an: EKG, Plain X-Ray and CT Scan Radiology Impression Discussion of test interpretation with radiology: I have reviewed the radiologist's reading. Discharge Plan Discharge Clinical Impression: UTI (urinary tract infection), Syncope Patient Disposition: Admitted As Inpatient
[2025-07-27 20:34] LABS: Hematocrit 29.7 % (42.0-52.0); Hemoglobin 10.1 g/dl (14.0-18.0); Imm Gran Abs Auto 0.05 X10*3/uL (0.00-0.03); Imm Gran Pct Auto 0.8 % (0.0-0.4); Lymphocytes Absolute Auto 1.2 X10*3/uL (1.2-4.9); MANUAL DIFF FLAG NO; Mean Corpuscular HGB Conc 34.0 g/dl (31.0-36.0); Mean Corpuscular Hemoglobin 36.9 pg (27.0-33.0); Mean Corpuscular Volume 108.4 fL (80.0-98.0); NRBC Abs Auto 0.020 X10*3/uL (0.0-0.012); NRBC Pct Auto 0.3 /100WBC (0.0-0.2); Platelet Count 304 X10*3/uL (160-400); Red Blood Count 2.74 X10*6/uL (4.60-5.80); White Blood Count 6.2 X10*3/uL (4.8-10.8)
[2025-07-27 20:35] LABS: Appearance Urine Clear; Glucose Urine UA Negative (Negative); PH 6.0 (5.0-9.0); Specific Gravity - Urine <= 1.005 (1.005-1.025); UMIC TRIGGER UA YES
[2025-07-27 20:48] LABS: Magnesium 1.8 mg/dL (1.6-2.6)
[2025-07-27 20:49] LABS: Alanine Aminotransferase 16 U/L (0-40); Albumin Level 4.7 g/dL (3.5-5.0); Alkaline Phosphatase 49 U/L (39-117); Anion Gap 16 (12-20); Aspartate Amino Transferase 27 U/L (5-37); Blood Urea Nitrogen 14 mg/dL (9-16); Calcium 9.5 mg/dL (8.4-10.2); Carbon Dioxide 22 mmol/L (22-29); Chloride 108 mmol/L (96-108); Creatinine Clr Calc Pharmacy 53.7; Estimated Glomerular Filt Rate > 60; Potassium 4.7 mmol/L (3.3-5.1); Sodium 141 mmol/L (135-145); Total Protein 7.5 g/dL (6.5-8.0)
[2025-07-27 20:56] LABS: Troponin-I High Sensitivity 7.1 ng/L (<3.5-35.0)
[2025-07-27] MEDS: Lactated Ringers 1,000 ML 999 ML IV ×2 (21:12)
[2025-07-27 22:03] VITALS: BP 136/60; PULSE 74; RESP 14; TEMP 36.4; O2SAT 100
--- NOTE | 2025-07-27 22:17 | HO.NURTONUR ---
Addendum entered by Tatum Figueroa RN 07/28/25 04:37: ADMIT: syncope, UTI. pt A/O x4, calm and cooperative with care. ECHO ordered for AM, cardiology consult, NSR on tele. 20g IV LAC. DNR/DNI. 3rd lactic 3.0. Original Note: Pt was BIBA after having unwitnessed syncopal episode at home w/ an unknown down time. Pt was found by dtr on the floor next to couch. Pt states he doesnt remember the events prior to syncopal episode. When pt arrived to ED he initially voided 200ml of yellow urine but immediately c/o he had to go again. Bladder scan PVR performed and pt noted to have >620ml. Pt then voided again and was able to void 350ml. Today pt is found to have mild uti and tx'd w/ levoquin. WBC's wnl, inital lactic 2.2. At baseline pt lives by himself, still drives, and ambulates without any assistance/devices.
--- NOTE | 2025-07-27 22:28 | MHC.EDTECH ---
350mL of light yellow urine emptied into urinal
[2025-07-28] VITALS (7 sets, daily range): BP systolic 130–160; BP diastolic 56–67; PULSE 81–85; RESP 11–18; TEMP 36.5–36.9; O2SAT 97–99
--- NOTE | 2025-07-28 00:35 | PM.IMHP ---
History of Present Illness Date of Service: 07/28/25 Attending physician on admission: Dany Ortega Chief Complaint: syncope Patient is an 82-year-old male with a past medical history significant for hypertension, diabetes, chronic anemia, myelodysplasia, paroxysmal AFib (patient does not recall this), history GI bleed, who presented to the ED due to a syncopal episode. The patient was found on the floor by his daughter. He denies any symptoms leading up to this including chest pain, shortness breath or dizziness. He reports he is completely asymptomatic at this time. He does not recall the episode but reports that he was going to sit down prior to syncopizing. Review of Systems Constitutional: Constitutional: Denies body ache(s), Denies chills, Denies fatigue, Denies fever(s) and Denies headache(s) Eyes: Eyes: Denies change in vision ENT: Denies headache(s), Denies nasal congestion and Denies sore throat Cardiovascular: Cardiovascular: Denies chest pain, Reports syncope, Denies rapid heart rate, Denies leg edema, Denies lightheadedness and Denies dyspnea Respiratory: Respiratory: Denies chest congestion, Denies cough, Denies dyspnea and Denies wheezing Gastrointestinal: Gastrointestinal: Denies abdominal pain, Denies diarrhea, Denies nausea and Denies vomiting Genitourinary: Genitourinary: Denies dysuria, Denies urinary frequency and Denies urinary urgency Musculoskeletal: Musculoskeletal: Denies back pain Integumentary/Breasts: Skin/Breast: Denies rash Neurologic: Denies confusion, Reports syncope and Denies headache(s) Psychiatric: Psychiatric: Denies confusion Endocrine: Endocrine: Denies fatigue Hematologic/Lymphatic: Hematologic/Lymphatic: Denies easy bleeding Allergic/Immunologic: Allergic/Immunologic: Denies wheezing [facility] Medical History Paroxysmal atrial fibrillation Erectile dysfunction Screening for colon cancer Essential hypertension Paroxysmal atrial flutter Insomnia Pyelonephritis Psoriasis Vitamin D deficiency Arthralgia Neuropathy GERD without esophagitis Gastrointestinal hemorrhage Anemia Pure hypercholesterolemia Benign essential hypertension Diabetes mellitus Atrial flutter Family History Father Pneumonia Mother Myocardial infarction Son No problems noted. Daughter No problems noted. Surgical History History of colonoscopy S/P ablation of atrial flutter History of inguinal hernia repair History of left hip replacement Social History Household Members: None Housing: House Alcohol intake: never Comment: low fall Patient Tobacco Use Status: Never used Tobacco Tobacco use type: Cigarette e-Cigarette/Vaping Use: Never Used Second Hand Smoke Exposure: Yes Advance Directives Date on File: 08/26/00 service: Yes Current occupational status: retired Cognitive needs: No Hearing needs: Yes Vision needs: Yes (Glasses) Meds Allergies Allergy/AdvReac Type Severity Reaction Status Date / Time Penicillins Allergy Intermediate RASH/HIVES Verified 07/27/25 19:50 Sulfa (Sulfonamide Allergy Intermediate RASH/HIVES, Verified 07/27/25 19:50 Antibiotics) hives aspirin Allergy Abdominal Verified 07/27/25 19:50 Pain Active Medications: Current Medications Acetaminophen (Acetaminophen 325 Mg Tablet) 975 mg PO Q6H PRN PRN Reason: Pain, Mild 1-3,fever,headache Ceftriaxone Sodium 1 gm/ (Sodium Chloride) 50 mls @ 100 mls/hr IV Q24H GLENDY Melatonin (Melatonin 3 Mg Tablet) 6 mg PO BEDTIME PRN PRN Reason: Insomnia Sodium Chloride (0.9 % Sodium Chloride Flush 3 Ml Syringe) 3 ml IVFLUSH QSHIFT GLENDY Home Medications ?Medication ?Instructions ?Recorded ?Confirmed ?Last Taken ?Type acetaminophen 500 mg tablet 1,000 mg PO Q8H PRN pain 09/06/23 07/02/25 Unknown History multivitamin 1 tab PO DAILY 09/06/23 07/02/25 09/05/23 History omega 1-lsy-iql-fish oil 300 1 cap PO DAILY 09/06/23 07/02/25 09/05/23 History mg-1,000 mg capsule,delayed release (Fish Oil) Physical Exam Vital Signs and Narrative: Vital Signs: Last Vital Signs Temp 97.6 F 07/27/25 22:03 Pulse 74 07/27/25 22:03 Resp 14 07/27/25 22:03 BP 136/60 07/27/25 22:03 Pulse Ox 100 07/27/25 22:03 O2 Del Method Room Air 07/27/25 22:03 BMI result Body Mass Index 25.3 General: AOx3, no acute distress Resp: CTA bilaterally CVS: S1, S2, RRR GI: +BS, NT, no distention Skin: Warm, dry Neuro: Cranial nerves II-XII grossly intact bilaterally. Motor grossly intact bilaterally Extremities: No pitting edema Psych: Appropriate affect Const: General: No confusion Orientation/consciousness: No confusion Neuro: General: No confusion Results Labs 07/27/25 20:21 07/27/25 20:21 Labs: Laboratory Results - last 24 hr 07/27/25 07/27/25 07/27/25 20:21 20:27 21:02 MCV 108.4 H MCH 36.9 H MCHC 34.0 RDW 16.8 H Plt Count 304 MPV 10.7 Immature Gran % (Auto) 0.8 H Neut % (Auto) 69.0 Lymph % (Auto) 19.1 L [place] % (Auto) 9.5 Eos % (Auto) 0.8 Baso % (Auto) 0.8 Lymph # (Auto) 1.2 [place] # (Auto) 0.6 Eos # (Auto) 0.1 Baso # (Auto) 0.1 Abs Immat Gran (auto) 0.05 H Absolute Neuts (auto) 4.3 Absolute Nucleated RBC 0.020 H Nucleated RBC % (auto) 0.3 H Anion Gap 16 Estim Creat Clear Calc 53.7 Estimated GFR > 60 Random Glucose 127 H Lactic Acid 2.2 H* Calcium 9.5 Magnesium 1.8 Total Bilirubin 0.7 AST 27 ALT 16 Alkaline Phosphatase 49 Total Creatine Kinase 69 Troponin I High Sens 7.1 Total Protein 7.5 Albumin 4.7 Urine Color Yellow Urine Appearance Clear Urine pH 6.0 Ur Specific [place] <= 1.005 Urine Protein Negative Urine Glucose (UA) Negative Urine Ketones Negative Urine Blood Negative Urine Nitrite Negative Ur Leukocyte Esterase Moderate (2+) H Urine RBC 0-2 Urine WBC 21-50 H Ur Squamous Epith Cells 0-2 Urine Bacteria 4+ Hyaline Casts 3-5 Ethyl Alcohol 173 Assessment and Plan (1) Syncope: Qualifiers: Encounter type: initial encounter Status: Acute (2) UTI (urinary tract infection): Qualifiers: Hematuria presence: without hematuria Urinary tract infection type: site unspecified Qualified Code(s): N39.0 - Urinary tract infection, site not specified Status: Acute (3) Acute lactic acidosis: Status: Acute Plan Patient is an 82-year-old male with a past medical history significant for hypertension, diabetes, chronic anemia, myelodysplasia, paroxysmal AFib (patient does not recall this), history GI bleed, who presented to the ED due to a syncopal episode. Syncope - check repeat troponin and D-dimer - monitor on telemetry - echo - cardiology consult UTI - ceftriaxone pending urine culture Acute lactic acidosis - received 2 L IV fluids in ED - hold off on further fluids pending troponin and D-dimer - does not appear to have sepsis, vitals stable, no leukocytosis - trend lactic acid HTN - continue home meds Diabetes - sliding scale insulin - diabetic diet Chronic anemia - hemoglobin at baseline - monitor CBC Paroxysmal AFib - no anticoagulation - monitor on tele Med rec pending DNR/DNI, patient reports he discussed with his children VTE prophylaxis: Lovenox Patient with syncopal episode complicated by acute lactic acidosis with unclear etiology, requiring admission for observation. Quality Stroke Does the patient have a stroke diagnosis?: No VTE Prior VTE?: No VTE Risk Level:: Medical - moderate - high VTE Device Contraindication: Treatment Not Indicated VTE Drug Contraindication: N/A - Med Ordered
[2025-07-28 00:48] LABS: ~Lactic Acid-LAB USE ONLY 3.1 mmol/L (0.5-2.0)
[2025-07-28 01:49] LABS: D Dimer High Sensitivity < 150 NG/ML
[2025-07-28 02:02] LABS: Troponin-I High Sensitivity 10.1 ng/L (<3.5-35.0)
[2025-07-28 02:25] LABS: Reflex Lactate? 2 Y
[2025-07-28 03:20] LABS: Hematocrit 27.9 % (42.0-52.0); Hemoglobin 9.4 g/dl (14.0-18.0); Mean Corpuscular HGB Conc 33.7 g/dl (31.0-36.0); Mean Corpuscular Hemoglobin 36.3 pg (27.0-33.0); Mean Corpuscular Volume 107.7 fL (80.0-98.0); NRBC Abs Auto 0.030 X10*3/uL (0.0-0.012); NRBC Pct Auto 0.4 /100WBC (0.0-0.2); Platelet Count 277 X10*3/uL (160-400); Red Blood Count 2.59 X10*6/uL (4.60-5.80); White Blood Count 8.4 X10*3/uL (4.8-10.8)
[2025-07-28 03:41] LABS: Anion Gap 14 (12-20); Blood Urea Nitrogen 11 mg/dL (9-16); Calcium 9.0 mg/dL (8.4-10.2); Carbon Dioxide 22 mmol/L (22-29); Chloride 111 mmol/L (96-108); Creatinine Clr Calc Pharmacy 65.0; Estimated Glomerular Filt Rate > 60; Potassium 4.3 mmol/L (3.3-5.1); Sodium 143 mmol/L (135-145)
[2025-07-28 03:48] LABS: ~Lactic Acid-LAB USE ONLY 3.0 mmol/L (0.5-2.0)
[2025-07-28] MEDS: Lactated Ringers 500 ML 999 ML IV (05:50)
--- NOTE | 2025-07-28 07:00 | CA_ITS ---
Transthoracic Echocardiogram Patient (Last, First, Middle): Contreras Chapman G Gender: M Date of : 1935 Age: 89 Procedure Date: 07/28/2025 Procedure Type: Transthoracic Echocardiogram Location[place] [facility] [place] Height: 177.8 cm Weight: 79.83 kg BSA: 1.98 m2 Heart Rate: bpm BP: 136 / 63 mmHg Switch Repairer: SB Referring MD: Zahra Hartman PA-C Symptoms: R55 syncope Study Quality: Adequate ECG Rhythm: Undetermined Conclusions: - The left ventricular systolic function is normal. The visually estimated ejection fraction is between 55-60%. - No obvious valvular pathology seen on this study. Findings Left Ventricle Normal left ventricular cavity size. The left ventricular systolic function is normal. The visually estimated ejection fraction is between 55-60%. There is no evidence of regional wall motion abnormalities. Evidence suggests grade I (mild) diastolic dysfunction. There is mild septal asymmetric hypertrophy. Right Ventricle Normal right ventricular cavity size and systolic function. Atria The left atrium is moderately dilated. The right atrium is normal in size. Aortic Valve There is mild calcification of the aortic valve. There is no aortic valve stenosis. There is no aortic valve regurgitation. Mitral Valve There is mild anterior mitral leaflet thickening. There is mild mitral annular calcification. There is no mitral valve regurgitation. There is no mitral valve stenosis. Pulmonic Valve The pulmonic valve is likely normal. Tricuspid Valve There is trace tricuspid valve regurgitation. There is no evidence of pulmonary hypertension. Great Vessels The asc aorta is normal in size. Venous The inferior vena cava is normal in size and collapses greater than 50% with inspiration. Pericardium/Pleural There is no evidence of pericardial effusion. Prior Study Comparison No significant change compared to prior study dated: 09/29/2020. Recommendations, Care & Conclusions No obvious valvular pathology seen on this study. Measurements 2D Linear Measurements IVSd: 1.11 0.6-0.9/0.6-1.0 cm LVIDd: 5.30 3.9-5.3/4.2-5.9 cm LVIDd Index: 2.68 2.4-3.2/2.2-3.1 cm/m2 LVIDs: 4.18 2.0-3.6 cm LVPWd: 0.97 0.7-1.1 cm Ao Root: 3.80 2.1-3.5 cm LA Diam: 4.10 2.7-3.8/3.0-4.0 cm LAIDs Index: 2.07 1.5-2.3 cm/m2 LV Mass: 263.70 67-162/88-224 g LV Mass Index: 133.18 43-95/49-115 g/m2 LVOT Diam: 2.60 3.0+(-)1.3 cm 2D Systolic Function EF 4C: 68.40 >55% EF 2C: 60.10 >55% EF BiP: 64.50 >55% Mitral Valve MV Pk E: 1.04 MV PK A: 1.13 MV Decel Time: 209.00 E/A: 0.90 E'Lateral: 8.16 E'Medial: 5.55 E/E' Med: 18.70 E/E' Lat: 12.70 PHT: 61.00 MVA PHT: 3.61 Decel [place]: 4.98 Aortic Valve AoV Pk Dejon: 1.59 AoV Mn Dejon: 1.12 AoV VTI: 0.33 AoV Pk Grad: 10.00 Aov Mn Grad: 6.00 HEATHER Cont.VTI: 3.19 LVOT LVOT Pk Dejon: 0.97 LVOT Mn Dejon: 0.73 LVOT VTI: 0.20 LVOT Pk Grad: 4.00 LVOT Mn Grad: 2.00 LVOT Diam: 2.60 LVOT Area: 5.31 Diastolic Function MV Pk E: 1.04 MV Pk A: 1.13 E/A: 0.90 E'Medial: 5.55 E/E' Med: 18.70 E' Laterial: 8.16 E/E' Lat: 12.70 Right Ventricle TAPSE (mm): 22.00 TVS' Dejon: 13.00 Tricuspid Valve TR Pk Dejon: 2.70 TR Pk Grad: 29.00 RA Press: 3.00 RVSP: 32.00 Great Vessels Aorta Ao Root-2D: 3.80 2.0-3.7 cm Ao Asc: 3.30 2.1-3.4 cm Pulmonary Valve PV Pk Dejon: 0.91 Peak PV Grad: 3.00 Updated in Other Vendor System with Status of Final Mauricio Mace MD electronically signed on 07/28/2025 12:03:26 PM with status of Final
[2025-07-28] MEDS: 0.9 % Sodium Chloride Flush 3 ML SYRINGE IVFLUSH ×2 (07:23→15:20)
--- NOTE | 2025-07-28 08:56 | PC.NURSE ---
Pt alert/oriented, denies pain. Tolerated breakfast ECHO being done at this time
--- NOTE | 2025-07-28 11:23 | PHA.MEDREC ---
Addendum entered by Padma Silva RPh 07/28/25 11:41: Reviewed by [facility] Original Note: Pharmacy Consult ? Medication Reconciliation Pharmacy has completed the medication reconciliation. Spoke with pt and he confirmed his medications. Pt confirmed he still takes Amlodipine, Metoprolol, Omeprazole, Januvia and Valsartan; Amlodipine, Metoprolol, Omeprazole and Januvia were last filled 01/2025 for 90 days and Valsartan was last filled 09/2024 for 90 days.
--- NOTE | 2025-07-28 13:52 | P.PNIM_ITS ---
Subjective Subjective Date of Service: 07/28/25 Interval History: feeling better Physical Exam 2 Exam: Exam: General: AO X 3, no acute distress Resp: CTA bilateral, no accessory muscles used CVS: S1,S2,RRR GI: soft, non tender, non distended Neuro: motor grossly intact, alert Psych: appropriate affect, appropriate insight Vital Signs: Vital Signs: Last Vital Signs Temp 98.3 F 07/28/25 11:34 Pulse 85 07/28/25 11:34 Resp 13 07/28/25 11:34 BP 147/67 H 07/28/25 11:34 Pulse Ox 97 07/28/25 11:34 O2 Del Method Room Air 07/28/25 11:34 BMI result Body Mass Index 25.3 Objective Data Active Medications Acetaminophen (Acetaminophen 325 Mg Tablet) 975 mg PO Q6H PRN PRN Reason: Pain, Mild 1-3,fever,headache Amlodipine Besylate (Amlodipine Besylate 10 Mg Tablet) 10 mg PO DAILY [facility]; Protocol Calcium Carbonate (Calcium Carbonate 750 Mg Tab.Chew) 750 mg PO Q4H PRN PRN Reason: Heartburn Enoxaparin Sodium (Enoxaparin Sodium 40 Mg/0.4 Ml Syringe) 40 mg SUBCUT Q24H [facility] Last Admin: 07/28/25 01:05 Dose: 40 mg Documented By: MARISABEL Ceftriaxone Sodium 1 gm/ (Sodium Chloride) 50 mls @ 100 mls/hr IV Q24H [facility] Lorazepam (Lorazepam 1 Mg Tablet) 1 mg PO TID PRN PRN Reason: Anxiety Magnesium Hydroxide (Milk Of Magnesia 30 Ml Oral.Susp) 30 ml PO DAILY PRN PRN Reason: Constipation Melatonin (Melatonin 3 Mg Tablet) 6 mg PO BEDTIME PRN PRN Reason: Insomnia Metoprolol Succinate (Metoprolol Succinate Er 50 Mg Tab.Er.24h) 50 mg PO DAILY [facility]; Protocol Multivitamins/Vitamin C (Multivitamin Tablet) 1 tab PO DAILY [facility] Omeprazole (Omeprazole 20 Mg Capsule.Dr) 20 mg PO BID@0630,1630 [facility] Ondansetron HCl (Ondansetron Hcl 4 Mg/2 Ml Vial) 4 mg IVPUSH Q8H PRN PRN Reason: Nausea and Vomiting Oxycodone HCl (Oxycodone Hcl Immed Release 5 Mg Tablet) 5 mg PO Q6H PRN PRN Reason: Pain, Severe (Pain Scale 7-10) Sodium Chloride (0.9 % Sodium Chloride Flush 3 Ml Syringe) 3 ml IVFLUSH QSHIFT [facility] Last Admin: 07/28/25 07:23 Dose: 3 ml Documented By: TOBIAS Tramadol HCl (Tramadol Hcl 50 Mg Tablet) 50 mg PO Q6H PRN PRN Reason: Pain, Moderate(Pain Scale 4-6) Valsartan (Valsartan 160 Mg Tablet) 160 mg PO DAILY [facility]; Protocol Labs 07/28/25 03:15 07/28/25 03:15 Labs: Laboratory Results - last 24 hr 07/27/25 07/27/25 07/27/25 20:21 20:27 21:02 MCV 108.4 H MCH 36.9 H MCHC 34.0 RDW 16.8 H Plt Count 304 MPV 10.7 Immature Gran % (Auto) 0.8 H Neut % (Auto) 69.0 Lymph % (Auto) 19.1 L Alexander % (Auto) 9.5 Eos % (Auto) 0.8 Baso % (Auto) 0.8 Lymph # (Auto) 1.2 Alexander # (Auto) 0.6 Eos # (Auto) 0.1 Baso # (Auto) 0.1 Abs Immat Gran (auto) 0.05 H Absolute Neuts (auto) 4.3 Absolute Nucleated RBC 0.020 H Nucleated RBC % (auto) 0.3 H D-Dimer High Sensitivty Anion Gap 16 Estim Creat Clear Calc 53.7 Estimated GFR > 60 Random Glucose 127 H Lactic Acid 2.2 H* Lactic Acid F/U @ 2Hr Lactic Acid F/U @ 4Hr Calcium 9.5 Magnesium 1.8 Total Bilirubin 0.7 AST 27 ALT 16 Alkaline Phosphatase 49 Total Creatine Kinase 69 Troponin I High Sens 7.1 Total Protein 7.5 Albumin 4.7 Urine Color Yellow Urine Appearance Clear Urine pH 6.0 Ur Specific Roberts <= 1.005 Urine Protein Negative Urine Glucose (UA) Negative Urine Ketones Negative Urine Blood Negative Urine Nitrite Negative Ur Leukocyte Esterase Moderate (2+) H Urine RBC 0-2 Urine WBC 21-50 H Ur Squamous Epith Cells 0-2 Urine Bacteria 4+ Hyaline Casts 3-5 Ethyl Alcohol 173 07/27/25 07/28/25 07/28/25 23:51 01:31 03:15 MCV 107.7 H MCH 36.3 H MCHC 33.7 RDW 16.9 H Plt Count 277 MPV 10.5 Immature Gran % (Auto) Neut % (Auto) Lymph % (Auto) Alexander % (Auto) Eos % (Auto) Baso % (Auto) Lymph # (Auto) Alexander # (Auto) Eos # (Auto) Baso # (Auto) Abs Immat Gran (auto) Absolute Neuts (auto) Absolute Nucleated RBC 0.030 H Nucleated RBC % (auto) 0.4 H D-Dimer High Sensitivty < 150 Anion Gap 14 Estim Creat Clear Calc 65.0 Estimated GFR > 60 Random Glucose 104 Lactic Acid Lactic Acid F/U @ 2Hr 3.1 H* Lactic Acid F/U @ 4Hr 3.0 H* Calcium 9.0 Magnesium Total Bilirubin AST ALT Alkaline Phosphatase Total Creatine Kinase Troponin I High Sens 10.1 Total Protein Albumin Urine Color Urine Appearance Urine pH Ur Specific Roberts Urine Protein Urine Glucose (UA) Urine Ketones Urine Blood Urine Nitrite Ur Leukocyte Esterase Urine RBC Urine WBC Ur Squamous Epith Cells Urine Bacteria Hyaline Casts Ethyl Alcohol Assessment and Plan (1) Paroxysmal atrial fibrillation: Status: Acute Plan 89M PMH htn, dm, chronic anemia, myelodysplasia, paroxysmal AFib, presented with syncopal episode Syncope Echo unremarkable, ? Due to intoxication, alcohol level was 173, patient denies Monitor on telemetry Possible UTI Empiric ceftriaxone, follow up culture Paroxysmal AFib Continue metoprolol, not on anticoagulation Hypertension Valsartan, amlodipine DVT prophylaxis-Lovenox DNR/DNI reason for continued hospitalization: Awaiting culture, working up syncope Quality Stroke Does the patient have a stroke diagnosis?: No VTE Prior VTE?: No VTE Risk Level:: Medical - moderate - high VTE Device Contraindication: Treatment Not Indicated VTE Drug Contraindication: N/A - Med Ordered
--- NOTE | 2025-07-28 18:28 | PC.NURSE ---
+ effect from Ativan, pt notably more relaxed and less restless. Put on hospital bed for comfort. Tolerating diner at this time. Sister left bedside. Awaits bed assgn
[2025-07-29 03:48] VITALS: BP 141/66; PULSE 74; RESP 16; TEMP 36.4; O2SAT 97
[2025-07-29 07:15] VITALS: BP 150/68; PULSE 79; RESP 18; TEMP 37.2; O2SAT 99
[2025-07-29 07:32] LABS: Hematocrit 28.1 % (42.0-52.0); Hemoglobin 9.6 g/dl (14.0-18.0); Mean Corpuscular HGB Conc 34.2 g/dl (31.0-36.0); Mean Corpuscular Hemoglobin 36.9 pg (27.0-33.0); Mean Corpuscular Volume 108.1 fL (80.0-98.0); NRBC Abs Auto 0.000 X10*3/uL (0.0-0.012); NRBC Pct Auto 0.0 /100WBC (0.0-0.2); Platelet Count 256 X10*3/uL (160-400); Red Blood Count 2.60 X10*6/uL (4.60-5.80); White Blood Count 5.7 X10*3/uL (4.8-10.8)
[2025-07-29 07:51] LABS: Alanine Aminotransferase 8 U/L (0-40); Albumin Level 3.9 g/dL (3.5-5.0); Alkaline Phosphatase 45 U/L (39-117); Anion Gap 12 (12-20); Aspartate Amino Transferase 24 U/L (5-37); Blood Urea Nitrogen 13 mg/dL (9-16); Calcium 8.9 mg/dL (8.4-10.2); Carbon Dioxide 25 mmol/L (22-29); Chloride 106 mmol/L (96-108); Creatinine Clr Calc Pharmacy 63.5; Estimated Glomerular Filt Rate > 60; Magnesium 1.7 mg/dL (1.6-2.6); Potassium 4.1 mmol/L (3.3-5.1); Sodium 139 mmol/L (135-145); Total Protein 6.4 g/dL (6.5-8.0)
[2025-07-29] MEDS: Metoprolol Succinate ER 50 MG TAB.ER.24H PO (08:10)
[2025-07-29] MEDS: Magnesium Sulfate/H2O 2 GM/50 ML PIGGYBACK IV (08:11)
[2025-07-29] MEDS: 0.9 % Sodium Chloride Flush 3 ML SYRINGE IVFLUSH ×3 (08:15→20:03)
--- NOTE | 2025-07-29 09:37 | MHC.CM.PN ---
Cele 07/29/25, Pt. lives alone, he does not use home health services or DME. PCP confirmed: Dr. Ortega MD, family to transport home at DC. DCP: home, self care, CM to follow for DC needs.
[2025-07-29 11:01] VITALS: BP 140/65; PULSE 80; RESP 18; TEMP 36.9; O2SAT 96
--- NOTE | 2025-07-29 11:24 | P.DS_ITS ---
DS: Providers Provider Date of Service: 07/30/25 Date of admission: 07/28/25 00:26 Date of discharge: 07/30/25 Primary care physician: Leonard Ames MD DS: Diagnosis Discharge Diagnosis (1) Paroxysmal atrial fibrillation: Status: Acute DS: Summary Hospital Course Hospital Course: from initial hpi: 82-year-old male with a past medical history significant for hypertension, diabetes, chronic anemia, myelodysplasia, paroxysmal AFib (patient does not recall this), history GI bleed, who presented to the ED due to a syncopal episode. The patient was found on the floor by his daughter. He denies any symptoms leading up to this including chest pain, shortness breath or dizziness. He reports he is completely asymptomatic at this time. He does not recall the episode but reports that he was going to sit down prior to syncopizing. hospital course: Patient was admitted for syncope. Had no evidence of trauma on imaging. Was monitored on telemetry with no events, echocardiogram was unremarkable. Syncope possibly due to intoxication his alcohol level was 173 on admission. Also possible contributing factor being UTI. Was empirically treated ceftriaxone, cultures did grow anything on discharge we will continue 5 more days of Ceftin. For paroxysmal AFib he was continued on metoprolol he is no longer on anticoagulation. For hypertension was continued on valsartan and amlodipine. Patient is feeling better and he will be discharged home Time Attestation Discharge Coordination Time (in mins): 33 Quality: Safe Use of Opioids Does Pt have an Active Cancer Diagnosis on the Problem List?: No Quality: Stroke Does the patient have a stroke diagnosis?: No Physical Exam Exam: Exam: General: AO X 3, no acute distress Resp: CTA bilateral, no accessory muscles used CVS: S1,S2,RRR GI: soft, non tender, non distended Neuro: motor grossly intact, alert Psych: appropriate affect, appropriate insight Vital Signs: Vital Signs: Last Vital Signs Temp 98.4 F 07/29/25 11:01 Pulse 80 07/29/25 11:01 Resp 18 07/29/25 11:01 BP 140/65 H 07/29/25 11:01 Pulse Ox 96 07/29/25 11:01 O2 Del Method Room Air 07/29/25 11:01 BMI result Body Mass Index 25.3 DS: Data Data Completed and Pending Completed studies during hospitalization [Text1]: Procedures Excision of Stomach, Pylorus, Via Natural or Artificial Opening Endoscopic, Diagnostic (09/05/23) Excision of Transverse Colon, Via Natural or Artificial Opening Endoscopic, Diagnostic (09/05/23) Transfusion of Nonautologous Red Blood Cells into Peripheral Vein, Percutaneous Approach (09/05/23) Labs on day of discharge: Laboratory Results - last 24 hr 07/29/25 06:28 WBC 5.7 RBC 2.60 L Hgb 9.6 L Hct 28.1 L MCV 108.1 H MCH 36.9 H MCHC 34.2 RDW 17.2 H Plt Count 256 MPV 10.6 Absolute Nucleated RBC 0.000 Nucleated RBC % (auto) 0.0 Sodium 139 Potassium 4.1 Chloride 106 Carbon Dioxide 25 Anion Gap 12 BUN 13 Creatinine 0.83 Estim Creat Clear Calc 63.5 Estimated GFR > 60 Random Glucose 132 H Calcium 8.9 Magnesium 1.7 Total Bilirubin 1.0 Direct Bilirubin 0.4 AST 24 ALT 8 Alkaline Phosphatase 45 Total Protein 6.4 L Albumin 3.9 Ethyl Alcohol < 10 Preliminary micro results at discharge 07/27/25 21:00 Blood Culture - Preliminary Blood - Venous No growth after 24 hours. 07/27/25 21:00 Blood Culture - Preliminary Blood - Venous No growth after 24 hours. Discharge Plan Discharge Anticipated Discharge Date/Time: 07/29/25 11:22 Patient Disposition: Home Health Service Discharge Diagnosis: presyncope Referrals: Leonard Ames MD [Primary Care Provider, Internal Medicine] - 1 Week Discharge Medications: New cefuroxime axetil 500 mg tablet 500 mg PO BID Qty: 10 0RF Continued metoprolol succinate 50 mg tablet extended release 24 hr 50 mg PO DAILY Qty: 90 3RF valsartan 160 mg tablet 160 mg PO DAILY 90 Days Qty: 90 1RF omeprazole 20 mg capsule,delayed release(DR/EC) 20 mg PO BID Qty: 180 1RF amlodipine 10 mg tablet 10 mg PO DAILY Qty: 90 1RF Januvia 100 mg tablet 100 mg PO DAILY Qty: 90 0RF doxepin 6 mg tablet 6 mg PO BEDTIME PRN (Reason: insomnia) 90 Days Qty: 90 1RF acetaminophen 500 mg tablet 1,000 mg PO Q8H PRN (Reason: pain) multivitamin Tablet 1 tab PO DAILY omega [id number]-fish oil [Fish Oil] 300-1,000 mg Capsule,Delayed Release(Dr/Ec) 1 cap PO DAILY simvastatin 20 mg tablet 20 mg PO BEDTIME melatonin 5 mg Tablet 10 mg PO BEDTIME PRN (Reason: Sleep) lorazepam 1 mg tablet 1 mg PO TID PRN (Reason: anxiety) 90 Days Qty: 270 1RF Discharge Orders: Discharge Order (Routine); Ordered 07/30/25 Ordered By: Reed Sapp Diet: Advance to usual diet Activity on Discharge: As tolerated Stand Alone Forms: Patient Portal Discharge page Print Language: Honduran Care Plan Goals: Recovery Health Concerns: Syncopal event and UTI Plan of Treatment: Five more days of Ceftin, avoid alcohol Assessment: See above
--- NOTE | 2025-07-29 12:07 | P.PNIM_ITS ---
Subjective Subjective Date of Service: 07/29/25 Interval History: feeling better but did poorly when trying to ambulate Physical Exam 2 Exam: Exam: General: AO X 3, no acute distress Resp: CTA bilateral, no accessory muscles used CVS: S1,S2,RRR GI: soft, non tender, non distended Neuro: motor grossly intact, alert Psych: appropriate affect, appropriate insight Vital Signs: Vital Signs: Last Vital Signs Temp 98.4 F 07/29/25 11:01 Pulse 80 07/29/25 11:01 Resp 18 07/29/25 11:01 BP 140/65 H 07/29/25 11:01 Pulse Ox 96 07/29/25 11:01 O2 Del Method Room Air 07/29/25 11:01 BMI result Body Mass Index 25.3 Objective Data Active Medications Acetaminophen (Acetaminophen 325 Mg Tablet) 975 mg PO Q6H PRN PRN Reason: Pain, Mild 1-3,fever,headache Amlodipine Besylate (Amlodipine Besylate 10 Mg Tablet) 10 mg PO DAILY [facility]; Protocol Last Admin: 07/29/25 08:10 Dose: 10 mg Documented By: STACEY Calcium Carbonate (Calcium Carbonate 750 Mg Tab.Chew) 750 mg PO Q4H PRN PRN Reason: Heartburn Enoxaparin Sodium (Enoxaparin Sodium 40 Mg/0.4 Ml Syringe) 40 mg SUBCUT Q24H [facility] Last Admin: 07/29/25 02:02 Dose: 40 mg Documented By: LISSY Ceftriaxone Sodium 1 gm/ (Sodium Chloride) 50 mls @ 100 mls/hr IV Q24H [facility] Last Infusion: 07/28/25 22:59 Dose: Infused Documented By: LISSY Lorazepam (Lorazepam 1 Mg Tablet) 1 mg PO TID PRN PRN Reason: Anxiety Last Admin: 07/29/25 02:07 Dose: 1 mg Documented By: LISSY Magnesium Hydroxide (Milk Of Magnesia 30 Ml Oral.Susp) 30 ml PO DAILY PRN PRN Reason: Constipation Melatonin (Melatonin 3 Mg Tablet) 6 mg PO BEDTIME PRN PRN Reason: Insomnia Metoprolol Succinate (Metoprolol Succinate Er 50 Mg Tab.Er.24h) 50 mg PO DAILY [facility]; Protocol Last Admin: 07/29/25 08:10 Dose: 50 mg Documented By: STACEY Multivitamins/Vitamin C (Multivitamin Tablet) 1 tab PO DAILY [facility] Last Admin: 07/29/25 08:10 Dose: 1 tab Documented By: STACEY Omeprazole (Omeprazole 20 Mg Capsule.) 20 mg PO BID@0630,1630 [facility] Last Admin: 07/29/25 06:24 Dose: 20 mg Documented By: LISSY Ondansetron HCl (Ondansetron Hcl 4 Mg/2 Ml Vial) 4 mg IVPUSH Q8H PRN PRN Reason: Nausea and Vomiting Oxycodone HCl (Oxycodone Hcl Immed Release 5 Mg Tablet) 5 mg PO Q6H PRN PRN Reason: Pain, Severe (Pain Scale 7-10) Sodium Chloride (0.9 % Sodium Chloride Flush 3 Ml Syringe) 3 ml IVFLUSH QSHIFT [facility] Last Admin: 07/29/25 08:15 Dose: 3 ml Documented By: STACEY Tramadol HCl (Tramadol Hcl 50 Mg Tablet) 50 mg PO Q6H PRN PRN Reason: Pain, Moderate(Pain Scale 4-6) Valsartan (Valsartan 160 Mg Tablet) 160 mg PO DAILY [facility]; Protocol Last Admin: 07/29/25 08:10 Dose: 160 mg Documented By: STACEY Labs 07/29/25 06:28 07/29/25 06:28 Labs: Laboratory Results - last 24 hr 07/29/25 06:28 MCV 108.1 H MCH 36.9 H MCHC 34.2 RDW 17.2 H Plt Count 256 MPV 10.6 Absolute Nucleated RBC 0.000 Nucleated RBC % (auto) 0.0 Anion Gap 12 Estim Creat Clear Calc 63.5 Estimated GFR > 60 Random Glucose 132 H Calcium 8.9 Magnesium 1.7 Total Bilirubin 1.0 Direct Bilirubin 0.4 AST 24 ALT 8 Alkaline Phosphatase 45 Total Protein 6.4 L Albumin 3.9 Ethyl Alcohol < 10 Microbiology Microbiology Results: Microbiology 07/27/25 21:00 Blood Culture - Preliminary Blood - Venous No growth after 24 hours. 07/27/25 21:00 Blood Culture - Preliminary Blood - Venous No growth after 24 hours. Assessment and Plan (1) Paroxysmal atrial fibrillation: Status: Acute Plan 89M PMH htn, dm, chronic anemia, myelodysplasia, paroxysmal AFib, presented with syncopal episode Syncope Echo unremarkable, ? Due to intoxication, alcohol level was 173, patient denies Monitor on telemetry - no events PT eval Possible UTI Empiric ceftriaxone, follow up culture Paroxysmal AFib Continue metoprolol, not on anticoagulation Hypertension Valsartan, amlodipine DVT prophylaxis-Lovenox DNR/DNI reason for continued hospitalization: Was unsteady, plan for PT eval Quality Stroke Does the patient have a stroke diagnosis?: No VTE Prior VTE?: No VTE Risk Level:: Medical - moderate - high VTE Device Contraindication: Treatment Not Indicated VTE Drug Contraindication: N/A - Med Ordered
[2025-07-29 15:42] VITALS: BP 129/62; PULSE 79; RESP 18; TEMP 36.7; O2SAT 98
[2025-07-29 19:24] VITALS: BP 127/59; PULSE 75; RESP 18; TEMP 36.7; O2SAT 96
[2025-07-29 23:43] VITALS: BP 153/70; PULSE 74; RESP 18; TEMP 36.3; O2SAT 97
[2025-07-30 03:19] VITALS: BP 149/66; PULSE 76; RESP 18; TEMP 36.6; O2SAT 97
[2025-07-30 06:56] LABS: Hematocrit 31.0 % (42.0-52.0); Hemoglobin 10.3 g/dl (14.0-18.0); Mean Corpuscular HGB Conc 33.2 g/dl (31.0-36.0); Mean Corpuscular Hemoglobin 36.3 pg (27.0-33.0); Mean Corpuscular Volume 109.2 fL (80.0-98.0); NRBC Abs Auto 0.020 X10*3/uL (0.0-0.012); NRBC Pct Auto 0.3 /100WBC (0.0-0.2); Platelet Count 305 X10*3/uL (160-400); Red Blood Count 2.84 X10*6/uL (4.60-5.80); White Blood Count 7.2 X10*3/uL (4.8-10.8)
[2025-07-30 07:01] VITALS: BP 150/67; PULSE 80; RESP 18; TEMP 36.4; O2SAT 98
[2025-07-30 07:26] LABS: Anion Gap 15 (12-20); Blood Urea Nitrogen 13 mg/dL (9-16); Calcium 9.5 mg/dL (8.4-10.2); Carbon Dioxide 26 mmol/L (22-29); Chloride 103 mmol/L (96-108); Creatinine Clr Calc Pharmacy 55.4; Estimated Glomerular Filt Rate > 60; Magnesium 2.0 mg/dL (1.6-2.6); Potassium 4.5 mmol/L (3.3-5.1); Sodium 139 mmol/L (135-145)
[2025-07-30] MEDS: Metoprolol Succinate ER 50 MG TAB.ER.24H PO (08:13)
[2025-07-30] MEDS: 0.9 % Sodium Chloride Flush 3 ML SYRINGE IVFLUSH (08:15)
--- NOTE | 2025-07-30 09:09 | P.PNIM_ITS ---
Subjective Subjective Date of Service: 07/30/25 Interval History: hip pain improved Physical Exam 2 Exam: Exam: General: AO X 3, no acute distress Resp: CTA bilateral, no accessory muscles used CVS: S1,S2,RRR GI: soft, non tender, non distended Neuro: motor grossly intact, alert Psych: appropriate affect, appropriate insight Vital Signs: Vital Signs: Last Vital Signs Temp 97.5 F 07/30/25 07:01 Pulse 80 07/30/25 07:01 Resp 18 07/30/25 07:01 BP 150/67 H 07/30/25 07:01 Pulse Ox 98 07/30/25 07:01 O2 Del Method Room Air 07/30/25 07:01 BMI result Body Mass Index 25.3 Objective Data Active Medications Acetaminophen (Acetaminophen 325 Mg Tablet) 975 mg PO Q6H PRN PRN Reason: Pain, Mild 1-3,fever,headache Amlodipine Besylate (Amlodipine Besylate 10 Mg Tablet) 10 mg PO DAILY [facility]; Protocol Last Admin: 07/30/25 08:14 Dose: 10 mg Documented By: STACEY Calcium Carbonate (Calcium Carbonate 750 Mg Tab.Chew) 750 mg PO Q4H PRN PRN Reason: Heartburn Enoxaparin Sodium (Enoxaparin Sodium 40 Mg/0.4 Ml Syringe) 40 mg SUBCUT Q24H [facility] Last Admin: 07/30/25 00:31 Dose: 40 mg Documented By: CARINA Ceftriaxone Sodium 1 gm/ (Sodium Chloride) 50 mls @ 100 mls/hr IV Q24H [facility] Last Infusion: 07/29/25 20:33 Dose: Infused Documented By: CARINA Lorazepam (Lorazepam 1 Mg Tablet) 1 mg PO TID PRN PRN Reason: Anxiety Last Admin: 07/29/25 22:02 Dose: 1 mg Documented By: CARINA Magnesium Hydroxide (Milk Of Magnesia 30 Ml Oral.Susp) 30 ml PO DAILY PRN PRN Reason: Constipation Melatonin (Melatonin 3 Mg Tablet) 6 mg PO BEDTIME PRN PRN Reason: Insomnia Metoprolol Succinate (Metoprolol Succinate Er 50 Mg Tab.Er.24h) 50 mg PO DAILY [facility]; Protocol Last Admin: 07/30/25 08:13 Dose: 50 mg Documented By: STACEY Multivitamins/Vitamin C (Multivitamin Tablet) 1 tab PO DAILY [facility] Last Admin: 07/30/25 08:13 Dose: 1 tab Documented By: STACEY Omeprazole (Omeprazole 20 Mg Capsule.) 20 mg PO BID@0630,1630 [facility] Last Admin: 07/30/25 05:45 Dose: 20 mg Documented By: CARINA Ondansetron HCl (Ondansetron Hcl 4 Mg/2 Ml Vial) 4 mg IVPUSH Q8H PRN PRN Reason: Nausea and Vomiting Oxycodone HCl (Oxycodone Hcl Immed Release 5 Mg Tablet) 5 mg PO Q6H PRN PRN Reason: Pain, Severe (Pain Scale 7-10) Sodium Chloride (0.9 % Sodium Chloride Flush 3 Ml Syringe) 3 ml IVFLUSH QSHIFT [facility] Last Admin: 07/30/25 08:15 Dose: 3 ml Documented By: STACEY Tramadol HCl (Tramadol Hcl 50 Mg Tablet) 50 mg PO Q6H PRN PRN Reason: Pain, Moderate(Pain Scale 4-6) Valsartan (Valsartan 160 Mg Tablet) 160 mg PO DAILY [facility]; Protocol Last Admin: 07/30/25 08:14 Dose: 160 mg Documented By: STACEY Labs 07/30/25 06:39 07/30/25 06:39 Labs: Laboratory Results - last 24 hr 07/30/25 06:39 MCV 109.2 H MCH 36.3 H MCHC 33.2 RDW 17.0 H Plt Count 305 MPV 11.1 Absolute Nucleated RBC 0.020 H Nucleated RBC % (auto) 0.3 H Anion Gap 15 Estim Creat Clear Calc 55.4 Estimated GFR > 60 Random Glucose 174 H Calcium 9.5 D Magnesium 2.0 Microbiology Microbiology Results: Microbiology 07/27/25 21:00 Blood Culture - Preliminary Blood - Venous No growth after 48 hours. 07/27/25 21:00 Blood Culture - Preliminary Blood - Venous No growth after 48 hours. Assessment and Plan (1) Paroxysmal atrial fibrillation: Status: Acute Plan 89M PMH htn, dm, chronic anemia, myelodysplasia, paroxysmal AFib, presented with syncopal episode Syncope Echo unremarkable, ? Due to intoxication, alcohol level was 173, patient denies Monitor on telemetry - no events PT recommending rehab Possible UTI Empiric ceftriaxone, blood culture negative Paroxysmal AFib Continue metoprolol, not on anticoagulation Hypertension Valsartan, amlodipine DVT prophylaxis-Lovenox DNR/DNI reason for continued hospitalization: Dispo planning Quality Stroke Does the patient have a stroke diagnosis?: No VTE Prior VTE?: No VTE Risk Level:: Medical - moderate - high VTE Device Contraindication: Treatment Not Indicated VTE Drug Contraindication: N/A - Med Ordered
--- NOTE | 2025-07-30 10:32 | W.MHC.F2F ---
Service Date Service Date: 07/30/25 Encounter Date of encounter: 07/30/25 Reasons for Services Signs and symptoms assessed: weakness Reason for alf: medication management, medication treatment and teach disease management Reason for physical therapy: home safety and mobility and therapeutic exercises Homebound: Leaving the home is medically contraindicated at this time without the asist of a device and/or another person due th the listed conditions above and below. Reason homebound: unsteady gait / fall risk Certification: Based on the above findings, I certify that this patient is confined to the home and needs intermittent alf care, physical therapy and/or speech therapy, or continues to need occupational therapy. The patient is under my care, and I have initiated the establishment of the plan of care. The patient will be followed by a physician who will periodically review the plan of care. Time Spent With Patient Time: Total time managing care of this patient today ____ minutes.
--- NOTE | 2025-07-30 11:28 | MHC.CM.PN ---
Pt. to DC today, he will go home with [facility] services, via family transport.
[2025-07-30 11:30] VITALS: BP 138/65; PULSE 80; RESP 18; TEMP 36.7; O2SAT 96
== END 2025-07-30 15:13 | disposition home health service (06) ==
LOC: HO.ED 22:10 → HO.EDOVER 07-28 00:31 → HO.IMC 07-28 19:30
PROVIDERS: Admitting Provider Physician Assistant; Emergency Provider Student in an Organized Health Care Education/Training Program; PCP Internal Medicine; Visit Provider Internal Medicine
DX: I48.0 Paroxysmal atrial fibrillation (principal); R55 Syncope and collapse; N39.0 Urinary tract infection, site not specified; E87.21 Acute metabolic acidosis; I44.0 Atrioventricular block, first degree; F10.90 Alcohol use, unspecified, uncomplicated; Y90.6 Blood alcohol level of 120-199 mg/100 ml; R94.31 Abnormal electrocardiogram [ECG] [EKG]; I10 Essential (primary) hypertension; E11.9 Type 2 diabetes mellitus without complications; Z91.81 History of falling
CPT/HCPCS: 36415; 70450; 71045; 72125; 73502; 80048; 80053; 80076; 80307; 81001; 82550; 83605; 83735; 84484; 85025; 85027; 85379; 87040; 93005; 93306; 96361; 96365; 96366; 96372; 97116; 97161; 99222; 99285; J0696; J1650; J1956; J3475; J7120

== ENCOUNTER → 2025-07-27 20:15 | Outpatient (BNV) | payer MEDICARE, OTHER, SELFPAY | PROVIDERS: Emergency Provider Student in an Organized Health Care Education/Training Program; Visit Provider Student in an Organized Health Care Education/Training Program | DX: M47.812 Spondylosis without myelopathy or radiculopathy, cervical region (principal); Z04.3 Encounter for examination and observation following other accident | CPT/HCPCS: 70450; 71045; 72125 ==

== ENCOUNTER → 2025-07-27 20:36 | Outpatient (BNV) | payer MEDICARE, OTHER, SELFPAY | PROVIDERS: Admitting Provider Physician Assistant; Emergency Provider Student in an Organized Health Care Education/Training Program; PCP Internal Medicine; Visit Provider Internal Medicine | DX: I44.0 Atrioventricular block, first degree (principal); I44.4 Left anterior fascicular block | CPT/HCPCS: 93010 ==

== ENCOUNTER 2025-07-28 00:26 | Outpatient (BNV) | payer MEDICARE, OTHER, SELFPAY | END 2025-07-28 07:00 | PROVIDERS: Admitting Provider Physician Assistant; Emergency Provider Student in an Organized Health Care Education/Training Program; PCP Internal Medicine; Visit Provider Internal Medicine | DX: I42.2 Other hypertrophic cardiomyopathy (principal); R55 Syncope and collapse | CPT/HCPCS: 93306 ==

== ENCOUNTER 2025-07-28 00:26 | Outpatient (BNV) | payer MEDICARE, OTHER, SELFPAY | END 2025-07-29 19:05 | PROVIDERS: Admitting Provider Physician Assistant; Emergency Provider Student in an Organized Health Care Education/Training Program; PCP Internal Medicine; Visit Provider Student in an Organized Health Care Education/Training Program | DX: M25.552 Pain in left hip (principal); Z04.3 Encounter for examination and observation following other accident | CPT/HCPCS: 73502 ==

== ENCOUNTER → 2025-07-28 00:26 | Outpatient (BNV) | payer MEDICARE, OTHER, SELFPAY | PROVIDERS: Admitting Provider Physician Assistant; Emergency Provider Student in an Organized Health Care Education/Training Program; PCP Internal Medicine; Visit Provider Internal Medicine | DX: I48.0 Paroxysmal atrial fibrillation (principal) | CPT/HCPCS: 99222; 99233; 99239; 99499; G0180 ==